=== PATIENT | female | born 1965 | race Caucasian/White ===

== ENCOUNTER 2020-01-31 10:09 | Outpatient (CLI) | payer OTHER, SELFPAY ==
--- NOTE | ~2020-01-31 | MM_ITS ---
EXAMINATION: MM screening [facility] BI w ivette HISTORY: Screening mammogram TECHNIQUE: Craniocaudal and mediolateral oblique 3-D tomosynthesis images were obtained and synthetic 2-D images were generated. CAD analysis was submitted and interpreted. COMPARISON: 11/02/2018, 02/20/2018, 08/02/2017, 07/27/2017 BREAST PARENCHYMAL COMPOSITION: There are scattered areas of fibroglandular density. FINDINGS: A stable mass is again noted in the anterior third of the lower left breast. There is no ev idence of suspicious mass, calcification, or architectural distortion to suggest malignancy in either breast. There has been no suspicious interval change. IMPRESSION: 1. No mammographic evidence of malignancy. 2. Recommend routine screening mammography in one year. BI-RADS Category 2: Benign finding(s). Reviewed, dictated and finalized at location A.
== END 2020-01-31 10:10 | disposition home or self-care (01) ==
LOC: ANHIMG 10:11
PROVIDERS: PCP Internal Medicine; Visit Provider Obstetrics & Gynecology
DX: Z12.31 Encounter for screening mammogram for malignant neoplasm of breast (principal)
CPT/HCPCS: 77063; 77067

== ENCOUNTER 2020-08-12 15:43 | Outpatient (CLI) | payer OTHER, SELFPAY ==
--- NOTE | ~2020-08-12 | MR_ITS ---
EXAMINATION: MR lumbar spine wo con DATE: 08/12/2020 16:53 INDICATION: Low back pain. Lumbar radiculopathy. TECHNIQUE: Magnetic resonance imaging (MRI) of the lumbar spine was performed without intravenous con trast. Sequences included sagittal T2-weighted FSE, sagittal T2-weighted FS FSE, sagittal T1-weighted FSE, and axial T2-weighted FSE. COMPARISON: None FINDINGS: There is 14 degrees levoscoliosis of lumbar spine. Vertebral body heights are normal. Inter vertebral disc heights are normal. There is endplate remodeling at L5-S1. The distal spinal cord sign al intensity is normal. The conus medullaris is at T12-L1. The following disc levels are specifically discussed: L1-L2: The disc is bulging and has an annular fissure. There is no facet joint osteoarthritis. There is mild right neural foraminal stenosis. There is no central canal stenosis. L2-L3: The disc does not extend beyond the endplate margin. There is mild bilateral facet joint osteo arthritis. There is no neural foraminal stenosis. There is no central canal stenosis. L3-L4: The disc is bulging. There is mild bilateral facet joint osteoarthritis. There is mild left ne ural foraminal stenosis. There is no central canal stenosis. L4-L5: The disc is bulging and has an annular fissure. There is moderate bilateral facet joint osteoa rthritis. There is mild left neural foraminal stenosis. There is no central canal stenosis. L5-S1: The disc is bulging and has an annular fissure. There is moderate right and severe left facet joint osteoarthritis. There is mild bilateral neural foraminal stenosis. There is no central canal st enosis. IMPRESSION: 1. Mild lumbar spondylosis. Reviewed, dictated and finalized at location A. IDE PLANT FIELD ENGINEER IMPRESSION: 1. Mild lumbar spondylosis.
--- NOTE | ~2020-08-12 | MR_ITS ---
EXAMINATION: MR cervical spine wo con DATE: 08/12/2020 16:36 INDICATION: Neck pain. TECHNIQUE: Magnetic resonance imaging (MRI) of the cervical spine was performed without intravenous c ontrast. Sequences included sagittal T2-weighted FSE, sagittal STIR FSE, sagittal T1-weighted FSE, ax ial MERGE, and axial T2-weighted FSE. COMPARISON: Cervical spine MRI 10/06/2017 FINDINGS: There is 6 degrees dextrocurvature of cervical spine. There is kyphosis of cervical spine. Vertebral body heights are normal. There is mildly decreased disc height at C3-C4 and C5-C6. Mild mot ion artifact obscures evaluation of the spinal cord for signal abnormality. The following disc levels are specifically discussed: C2-C3: The disc does not extend beyond the endplate margin. There is no uncovertebral joint osteoarth ritis. There is severe bilateral facet joint osteoarthritis. There is no neural foraminal stenosis. T here is no central canal stenosis. C3-C4: The disc is bulging. There is mild right and moderate left uncovertebral joint osteoarthritis. There is mild right and severe left facet joint osteoarthritis. There is moderate left neural forami nal stenosis. There is no central canal stenosis. C4-C5: The disc does not extend beyond the endplate margin. There is mild left uncovertebral joint os teoarthritis. There is mild right and severe left facet joint osteoarthritis. There is mild left neur al foraminal stenosis. There is no central canal stenosis. C5-C6: The disc is bulging. There is mild bilateral uncovertebral joint osteoarthritis. There is mild right and severe left facet joint osteoarthritis. There is no neural foraminal stenosis. There is no central canal stenosis. C6-C7: The disc does not extend beyond the endplate margin. There is no uncovertebral joint osteoarth ritis. There is no facet joint osteoarthritis. There is no neural foraminal stenosis. There is no phil tral canal stenosis. C7-T1: The disc does not extend beyond the endplate margin. There is no uncovertebral joint osteoarth ritis. There is mild left facet joint osteoarthritis. There is no neural foraminal stenosis. There is no central canal stenosis. IMPRESSION: 1. Mild cervical spondylosis, stable from 10/06/2017. Reviewed, dictated and finalized at location A. L MAIL CARRIER
== END 2020-08-12 15:44 | disposition home or self-care (01) ==
PROVIDERS: PCP Internal Medicine; Visit Provider Nurse Practitioner Family
DX: M47.892 Other spondylosis, cervical region (principal); M47.896 Other spondylosis, lumbar region
CPT/HCPCS: 72141; 72148

== ENCOUNTER 2020-08-26 09:00 | Outpatient (CLI) | payer OTHER, SELFPAY ==
--- NOTE | ~2020-08-26 | DEXA_ITS ---
Bone Density Report Name: Aniya Ann Age: 54 Sex: Female Ethnicity: White Date of : 1965 Indication: postmenopausal; Referring Provider: Patrick, Cami Gann Study: Bone densitometry was performed. Exam Date: August 26, 2020 Accession number: [id number] Bone Density: Region BMD T-score Z-score Classification AP Spine (L1-L4) 0.546 -4.6 -3.4 Osteoporosis Femoral Neck (Left) 0.569 -2.5 -1.4 Osteoporosis Total Hip (Left) 0.646 -2.4 -1.7 Osteopenia Total Hip Bilateral Avg 0.652 -2.4 -1.7 Osteopenia Femoral Neck (Right) 0.587 -2.4 -1.2 Osteopenia Total Hip (Right) 0.657 -2.3 -1.6 Osteopenia World Health Organization criteria for BMD impression classify patients as: Normal (T-score at or above -1.0), Osteopenia (T-score between -1.0 and -2.5), or Osteoporosis (T-score at or below -2.5). 10-year Fracture Risk: FRAX not reported because: Some T-score for Spine Total or Hip Total or Femoral Neck at or below -2.5 Clinical Information Provided by Patient: Has used the following medications: Vitamin D Patient maximum height was 56.6 Menopause Age: 44 Does not regularly consume dairy products Drinks caffeinated beverages Onset of menses at age 11 Number of children 3 Impression: The patient has osteoporosis, based on the Total Spine T-score. Discussion: HIGH RISK OF FRACTURE. BONE DENSITY IS UNDESIRABLY LOW AT ONE OR MORE SKELETAL SITES, CONSISTENT WITH OSTEOPOROSIS. ALSO, BONE DENSITY IS LOWER THAN EXPECTED FOR AGE AND SEX AT ONE OR MORE SKELETAL SITES; RECOMMEND A DILIGENT SEARCH FOR SECONDARY CAUSES OF BONE LOSS. This patient's lowest T-score meets the World Health Organization's (WHO) criteria for osteoporosis at one or more sites (T-score -2.5 or below). In untreated patients, the risk of osteoporotic fracture increases approximately two-fold for each 1.0 SD decrease in T-score. Low bone density is not the only risk factor for fracture; also consider factors such as patient's age, frailty or poor health, risk of falling, risk of injury, previous osteoporotic fracture, family history of osteoporosis, cigarette smoking, low body weight, etc. Not everyone with low bone mineral density has osteoporosis; osteomalacia and other metabolic bone disorders should also be considered. Patients who have osteoporosis should be evaluated for specific diseases and conditions (secondary causes) that may cause or contribute to bone loss. The [place] [employer] Endocrinologists (AACE) and National Osteoporosis Foundation (NOF) recommend pharmacologic intervention for all postmenopausal women whose T-score is in this range. Also, this patient's bone mineral density is below the range considered normal for healthy age-, sex-, and race-matched controls at least one site (Z-score -2.0 or below). This warrants careful evalu
== END 2020-08-26 09:01 | disposition home or self-care (01) ==
PROVIDERS: PCP Internal Medicine; Visit Provider Nurse Practitioner Obstetrics & Gynecology
DX: M85.89 Other specified disorders of bone density and structure, multiple sites (principal); M81.0 Age-related osteoporosis without current pathological fracture
CPT/HCPCS: 77080

== ENCOUNTER 2021-02-02 10:35 | Outpatient (CLI) | payer OTHER, SELFPAY ==
--- NOTE | ~2021-02-02 | MM_ITS ---
EXAMINATION: MM screening [facility] BI w ivette HISTORY: Screening TECHNIQUE: Craniocaudal and mediolateral oblique 3-D tomosynthesis images were obtained and synthetic 2-D images were generated. CAD analysis was submitted and interpreted. COMPARISON: Comparison to multiple prior studies sequentially, with oldest reviewed study dated 06/2016. BREAST PARENCHYMAL COMPOSITION: There are scattered areas of fibroglandular density. FINDINGS: There is no evidence of suspicious mass, calcification, or architectural distortion to sugg est malignancy in either breast. There has been no suspicious interval change. IMPRESSION: 1. No mammographic evidence of malignancy. 2. Recommend routine screening mammography in one year. BI-RADS Category 1: Negative Reviewed, dictated and finalized at location A.
== END 2021-02-02 10:36 | disposition home or self-care (01) ==
LOC: ANHIMG 10:36
PROVIDERS: PCP Internal Medicine; Visit Provider Nurse Practitioner Obstetrics & Gynecology
DX: Z12.31 Encounter for screening mammogram for malignant neoplasm of breast (principal)
CPT/HCPCS: 77063; 77067

== ENCOUNTER 2021-07-07 10:19 | Outpatient (CLI) | payer OTHER, SELFPAY ==
--- NOTE | 2021-07-07 11:00 | NEURO_ITS ---
Impression: # Complains of numbness of hands. # Mild evolving left Carpal Tunnel Syndrome. # Left ulnar neuropathy across the elbow. # Normal needle/EMG exam. Nerve Conduction Studies Anti Sensory Summary Table Stim Site NR Peak (ms) P-T Amp (?V) Site1 Site2 Delta-P (ms) Dist (cm) Timoteo (m/s) Left Median Anti Sensory (2-3nd Digit) Wrist 3.1 83.4 Wrist 2-3nd Digit 3.1 14.0 45 Wrist 3.1 77.7 Wrist 2-3nd Digit 3.1 14.0 45 Right Median Anti Sensory (2-3nd Digit) Wrist 3.2 86.0 Wrist 2-3nd Digit 3.2 14.0 44 Wrist 3.3 68.9 Wrist 2-3nd Digit 3.2 14.0 44 Left Radial Anti Sensory (Base 1st Digit) Wrist 2.3 46.3 Wrist Base 1st Digit 2.3 0.0 Right Radial Anti Sensory (Base 1st Digit) Wrist 2.3 42.9 Wrist Base 1st Digit 2.3 0.0 Left Ulnar Anti Sensory (5th Digit) Wrist 2.7 97.2 Wrist 5th Digit 2.7 14.0 52 Right Ulnar Anti Sensory (5th Digit) Wrist 2.5 77.1 Wrist 5th Digit 2.5 14.0 56 Motor Summary Table Stim Site NR Onset (ms) O-P Amp (mV) Site1 Site2 Delta-0 (ms) Dist (cm) Timoteo (m/s) Left Median Motor (Abd Poll Brev) Wrist 3.8 5.9 Elbow Wrist 5.4 29.0 54 Elbow 9.2 4.7 Right Median Motor (Abd Poll Brev) Wrist 3.4 5.1 Elbow Wrist 5.0 28.0 56 Elbow 8.4 5.6 Left Ulnar Motor (Abd Dig Minimi) Wrist 2.4 9.7 A Elbow Wrist 6.1 28.0 46 A Elbow 8.5 8.7 B Elbow Wrist 3.9 21.0 54 B Elbow 6.3 6.9 Right Ulnar Motor (Abd Dig Minimi) Wrist 2.6 6.6 A Elbow Wrist 5.1 29.0 57 A Elbow 7.7 5.6 F Wave Studies NR F-Lat (ms) L-R F-Lat (ms) Left Median (Mrkrs) (Abd Poll Brev) 29.53 1.13 Right Median (Mrkrs) (Abd Poll Brev) 30.66 1.13 Left Ulnar (Mrkrs) (Abd Dig Min) 30.55 1.01 Right Ulnar (Mrkrs) (Abd Dig Min) 29.54 1.01 EMG Side Muscle Nerve Root Ins Act Fibs Amp Dur Recrt Comment Right 1stDorInt Ulnar C8-T1 Nml Nml Nml Nml Nml Right Ext Indicis Radial (Post Int) C7-8 Nml Nml Nml Nml Nml Right Ext Digitorum Radial (Post Int) C7-8 Nml Nml Nml Nml Nml Right BrachioRad Radial C5-6 Nml Nml Nml Nml Nml Right PronatorTeres Median C6-7 Nml Nml Nml Nml Nml Right Abd Poll Brev Median C8-T1 Nml Nml Nml Nml Nml Left 1stDorInt Ulnar C8-T1 Nml Nml Nml Nml Nml Left Ext Indicis Radial (Post Int) C7-8 Nml Nml Nml Nml Nml Left Ext Digitorum Radial (Post Int) C7-8 Nml Nml Nml Nml Nml Left BrachioRad Radial C5-6 Nml Nml Nml Nml Nml Left PronatorTeres Median C6-7 Nml Nml Nml Nml Nml Left Abd Poll Brev Median C8-T1 Nml Nml Nml Nml Nml MTDD
== END 2021-07-07 10:20 | disposition home or self-care (01) ==
PROVIDERS: PCP Internal Medicine; Visit Provider Nurse Practitioner Family
DX: G56.02 Carpal tunnel syndrome, left upper limb (principal); G56.22 Lesion of ulnar nerve, left upper limb
CPT/HCPCS: 95886; 95911

== ENCOUNTER 2022-03-18 10:26 | Outpatient (CLI) | payer OTHER, SELFPAY ==
--- NOTE | ~2022-03-18 | MR_ITS ---
EXAMINATION: MR cervical spine wo con DATE: 03/18/2022 11:06 INDICATION: Chronic neck pain. TECHNIQUE: Magnetic resonance imaging (MRI) of the cervical spine was performed without intravenous c ontrast. Sequences included sagittal T2-weighted FSE, sagittal T2-weighted FS FSE, sagittal T1-weight ed FSE, axial MERGE, and axial T2-weighted FSE. COMPARISON: Cervical spine MRI 08/12/2020 FINDINGS: There is kyphosis of cervical spine. There is a least 20 degrees levoscoliosis of thoracic spine. There is 2 mm anterolisthesis of C3 on C4 and C4 on C5. There is mild chronic height loss of C 5 vertebral body. There is mildly decreased disc height at C3-C4 and C5-C6. The spinal cord signal in tensity is normal. The following disc levels are specifically discussed: C2-C3: There is a central protrusion. There is no uncovertebral joint osteoarthritis. There is severe bilateral facet joint osteoarthritis. There is no neural foraminal stenosis. There is no central can al stenosis. C3-C4: There is a central extrusion. There is moderate left uncovertebral joint osteoarthritis. There is mild right and severe left facet joint osteoarthritis. There is moderate left neural foraminal st enosis. There is no central canal stenosis. C4-C5: The disc does not extend beyond the endplate margin. There is no uncovertebral joint osteoarth ritis. There is moderate right and severe left facet joint osteoarthritis. There is mild left neural foraminal stenosis. There is no central canal stenosis. C5-C6: The disc is bulging. There is mild bilateral uncovertebral joint osteoarthritis. There is brandon re bilateral facet joint osteoarthritis. There is mild bilateral neural foraminal stenosis. There is mild central canal stenosis. C6-C7: There is a central extrusion. There is no uncovertebral joint osteoarthritis. There is no face t joint osteoarthritis. There is no neural foraminal stenosis. There is mild central canal stenosis. C7-T1: The disc does not extend beyond the endplate margin. There is no uncovertebral joint osteoarth ritis. There is mild left facet joint osteoarthritis. There is no neural foraminal stenosis. There is no central canal stenosis. IMPRESSION: 1. Mild cervical spondylosis, stable from 08/13/2020. Reviewed, dictated and finalized at location A.
== END 2022-03-18 10:27 | disposition home or self-care (01) ==
PROVIDERS: PCP Internal Medicine
DX: M54.42 Lumbago with sciatica, left side (principal); R29.2 Abnormal reflex; R27.0 Ataxia, unspecified; M47.892 Other spondylosis, cervical region
CPT/HCPCS: 72141

== ENCOUNTER 2022-05-03 12:34 | Outpatient (CLI) | payer OTHER, SELFPAY | END 2022-05-03 12:35 | disposition home or self-care (01) | PROVIDERS: PCP Internal Medicine; Visit Provider Nurse Practitioner | DX: H93.19 Tinnitus, unspecified ear (principal); H90.3 Sensorineural hearing loss, bilateral | CPT/HCPCS: 92557; 92567 ==

== ENCOUNTER 2022-05-18 14:19 | Outpatient (CLI) | payer OTHER, SELFPAY ==
--- NOTE | ~2022-05-18 | MM_ITS ---
EXAMINATION: MM screening [facility] BI w ivette HISTORY: Screening TECHNIQUE: Craniocaudal and mediolateral oblique 3-D tomosynthesis images were obtained and synthetic 2-D images were generated. CAD analysis was submitted and interpreted. COMPARISON: Comparison to multiple prior studies sequentially, with oldest reviewed study dated 07/27. BREAST PARENCHYMAL COMPOSITION: There are scattered areas of fibroglandular density. FINDINGS: There is no evidence of suspicious mass, calcification, or architectural distortion to sugg est malignancy in either breast. There has been no suspicious interval change. IMPRESSION: 1. No mammographic evidence of malignancy. 2. Recommend routine screening mammography in one year. BI-RADS Category 1: Negative Reviewed, dictated and finalized at location B. GE PLANT OPERATOR
== END 2022-05-18 14:20 | disposition home or self-care (01) ==
PROVIDERS: PCP Internal Medicine; Visit Provider Nurse Practitioner Obstetrics & Gynecology
DX: Z12.31 Encounter for screening mammogram for malignant neoplasm of breast (principal)
CPT/HCPCS: 77063; 77067

== ENCOUNTER 2022-10-08 10:51 | Outpatient (CLI) | payer OTHER, SELFPAY ==
--- NOTE | ~2022-10-08 | XR_ITS ---
Thoracic spine: Clinical Indication: Fracture, osteoporosis AP and lateral views were performed. No fracture is seen. There is 25 degree dextroscoliosis of the thoracic spine. The intervertebral dis c spaces appear normal. Paravertebral soft tissues appear normal. Impression: 25 degree dextroscoliosis of the thoracic spine. No fracture or subluxation evident otherwise. Reviewed, dictated and finalized at location . Impression: 25 degree dextroscoliosis of the thoracic spine. No fracture or subluxation evident otherwise.
== END 2022-10-08 10:52 | disposition home or self-care (01) ==
PROVIDERS: PCP Internal Medicine
DX: M81.0 Age-related osteoporosis without current pathological fracture (principal)
CPT/HCPCS: 72070

== ENCOUNTER 2023-04-28 12:18 | Emergency (ER) | payer OTHER, SELFPAY ==
--- NOTE | ~2023-04-28 | XR_ITS ---
EXAMINATION: XR forearm RT 2V INDICATION: Right wrist pain, initial encounter TECHNIQUE: Two views of the right forearm are obtained. COMPARISON: None available FINDINGS: There is an acute, traumatic, comminuted intra-articular fracture of the distal radius. The re are 45 degrees of dorsal tilt of the distal fracture fragment. There is a minimally displaced obli que fracture through the ulnar styloid. No definite additional fracture is identified on this two vie w examination. There is diffuse soft tissue swelling of the wrist. Alignment the elbow is normal. IMPRESSION: 1. Comminuted intra-articular fracture of the distal radius with dorsal angulation. 2. Minimally displaced oblique fracture of the ulnar styloid. Reviewed, dictated and finalized at location F. FEEDER IMPRESSION: 1. Comminuted intra-articular fracture of the distal radius with dorsal angulat ion. 2. Minimally displaced oblique fracture of the ulnar styloid.
--- NOTE | ~2023-04-28 | XR_ITS ---
XR wrist RT 2V DATE: 04/28/2023 15:20 INDICATION: Postoperative reduction examination TECHNIQUE: AP and crosstable lateral views of right wrist COMPARISON: 04/28/2023 prereduction examination FINDINGS: There is a splint of the forearm and wrist extending into the distal metacarpal area. Again noted is comminuted intra-articular fracture of the distal radius with minimal displacement, wi th prominent dorsal inclination of the distal radial articular surface. IMPRESSION: Persistent prominent dorsal inclination of distal radial articular surface at comminuted intra-articular fracture of distal radius Reviewed, dictated and finalized at location A. GRAPHICAL ENGINEER
--- NOTE | ~2023-04-28 | XR_ITS ---
EXAMINATION: XR wrist RT 2V INDICATION: Right wrist pain, initial encounter TECHNIQUE: Two views of the right wrist are obtained. COMPARISON: None available FINDINGS: There is an acute, traumatic, comminuted intra-articular fracture of the distal radius. The re are 45 degrees of dorsal tilt of the distal fracture fragment. There is a minimally displaced obli que fracture through the ulnar styloid. No definite additional fracture is identified on this two vie w examination. There is diffuse soft tissue swelling of the wrist. IMPRESSION: 1. Comminuted intra-articular fracture of the distal radius with dorsal tilt. 2. Oblique fracture of the ulnar styloid. Reviewed, dictated and finalized at location F. RIMENTAL MECHANIC SPACECRAFT
[2023-04-28 12:18] VITALS: BP 151/79; PULSE 81; RESP 20; TEMP 37.1; O2SAT 100
--- NOTE | 2023-04-28 12:20 | ED.UPPEXIN ---
HPI - Extremity Injury (Upper) General Chief Complaint: Extremity Injury, Upper <Jennifer Ignacio APRN - Last Filed: 04/28/23 16:51> Stated Complaint: right wrist injury <Jennifer Ignacio APRN - Last Filed: 04/28/23 16:51> Time Seen by Provider: 04/28/23 12:20 <Jennifer Ignacio APRN - Last Filed: 04/28/23 16:51> Source: patient and family <Jennifer Ignacio APRN - Last Filed: 04/28/23 16:51> Mode of arrival: ambulatory <Jennifer Ignacio APRN - Last Filed: 04/28/23 16:51> Limitations: no limitations <Jennifer Ignacio APRN - Last Filed: 04/28/23 16:51> History of Present Illness HPI narrative: Patient is a very pleasant 57 year female past medical history as noted below presents emergency department today ambulatory with a steady gait with her spouse for evaluation of pain and deformity to the right wrist. Patient was changes on bilateral on a candle on her mental when she fell down landing on the extremity. She did not strike her head. there is tingling/numbness sensation to her fingers but she states she can feel them. <Jennifer Ignacio APRN - Last Filed: 04/28/23 16:51> Related Data Home Medications: Home Medications Medication Instructions Recorded Confirmed valacyclovir 1 gram tablet 1,000 mg PO .prn 02/04/20 04/14/22 (Valtrex) cholecalciferol (vitamin D3) 25 25 mcg PO DAILY 06/19/20 04/14/22 mcg (1,000 unit) capsule cannabidiol 100 mg/mL oral solution PO 03/10/21 04/14/22 galcanezumab-gnlm 120 mg/mL 120 mg subcut MONTHLY 04/14/22 04/14/22 subcutaneous pen injector (Emgality Pen) <Jennifer Ignacio APRN - Last Filed: 04/28/23 16:51> Allergies/Adverse Reactions: Allergies Allergy/AdvReac Type Severity Reaction Status Date / Time No Known Allergies Allergy Verified 04/14/22 12:54 <Jennifer Ignacio APRN - Last Filed: 04/28/23 16:51> Review of Systems Review of Systems: CONSTITUTIONAL: Denies fever, chills, or sweats. SKIN: Denies rash or itching. MUSCULOSKELETAL: +right wrist/lower arm pain/swelling/deformity. NEUROLOGIC: +numbness/tingling sensation to fingers of right hand PSYCHIATRIC: Denies anxiety or depression. <Jennifer Ignacio APRN - Last Filed: 04/28/23 16:51> All systems reviewed & are unremarkable except as noted in HPI and below <Jennifer Ignacio APRN - Last Filed: 04/28/23 16:51> PMFSH Past Medical History Medical History: Medical History Acquired hypothyroidism High blood cholesterol Hyperlipemia, idiopathic familial Hyperlipidemia Pain of both heels Screening for metabolic disorder <Jennifer Ignacio APRN - Last Filed: 04/28/23 16:51> Family History Family History: Family History Sibling Patient's brother is in good health Mother Multiple sclerosis Rheumatoid arthritis Diabetes mellitus Other Family history of coronary artery disease Family history of lung cancer Family history of lupus erythematosus Family history of rheumatoid arthritis <Jennifer Ignacio APRN - Last Filed: 04/28/23 16:51> Social History Social History: Social History Social History: caffeine-1 soda daily Smoking status: Never smoker Alcohol intake: never <Jennifer Ignacio APRN - Last Filed: 04/28/23 16:51> Exam Narrative: GENERAL: Well-appearing, well-nourished. patient tearful, in obvious pain. non-toxic however. HEAD: Normocephalic, atraumatic. EYES: PERRLA ENT: Mucous membranes moist. NECK: Supple. CHEST: No respiratory distress. HEART: Regular rate. 2+ right radial pulse. EXTREMITIES: there is obvious deformity to the right distal wrist with swelling/tenderness. able to wiggle fingers. cap refill <2 seconds of right hand. no right sided elbow deformity or shoulder. SKIN: Warm, dry, no rash. color appropriate to right hand and warm. NEURO:
[2023-04-28] MEDS: fentaNYL CITRATE INJ (*CRX) 100 MCG/2 ML VIAL IV PUSH (13:00)
[2023-04-28 14:17] VITALS: PULSE 70; RESP 18; O2SAT 100
[2023-04-28] MEDS: oxyCODONE HCL (*CRX) 5 MG TAB IR PO (14:29)
[2023-04-28] MEDS: LIDOCAINE HCL 1% LOCAL INJ 10 ML VIAL INFILTRATE (14:36)
[2023-04-28 14:37] VITALS: BP 132/82; PULSE 70; RESP 18; O2SAT 96
[2023-04-28 16:16] VITALS: BP 131/79; PULSE 70; RESP 17; O2SAT 98
== END 2023-04-28 16:20 | disposition home or self-care (01) ==
PROVIDERS: Emergency Provider Nurse Practitioner; PCP Nurse Practitioner Family
DX: S52.571A Other intraarticular fracture of lower end of right radius, initial encounter for closed fracture (principal); S52.611A Displaced fracture of right ulna styloid process, initial encounter for closed fracture; E03.9 Hypothyroidism, unspecified; E78.00 Pure hypercholesterolemia, unspecified; W07.XXXA Fall from chair, initial encounter
CPT/HCPCS: 25605; 73090; 73100; 96374; 99285; A4565; A9270; J3010

== ENCOUNTER 2024-02-27 09:50 | Outpatient (CLI) | payer OTHER, SELFPAY ==
--- NOTE | ~2024-02-27 | MM_ITS ---
EXAMINATION: MM screening [facility] BI w ivette HISTORY: Screening TECHNIQUE: Craniocaudal and mediolateral oblique 3-D tomosynthesis images were obtained and synthetic 2-D images were generated. CAD analysis was submitted and interpreted. COMPARISON: Comparison to multiple prior studies sequentially, with oldest reviewed study dated 08/02. BREAST PARENCHYMAL COMPOSITION: Not dense: There are scattered areas of fibroglandular density. FINDINGS: There is no evidence of suspicious mass, calcification, or architectural distortion to sugg est malignancy in either breast. There has been no suspicious interval change. IMPRESSION: 1. No mammographic evidence of malignancy. 2. Recommend routine screening mammography in one year. BI-RADS Category 1: Negative Reviewed, dictated and finalized at location B.
== END 2024-02-27 09:51 | disposition home or self-care (01) ==
LOC: ANHIMG 09:52
PROVIDERS: PCP Internal Medicine; Visit Provider Nurse Practitioner Obstetrics & Gynecology
DX: Z12.31 Encounter for screening mammogram for malignant neoplasm of breast (principal)
CPT/HCPCS: 77063; 77067

== ENCOUNTER 2024-04-03 12:16 | Outpatient (CLI) | payer OTHER, SELFPAY ==
--- NOTE | 2024-04-03 14:30 | NEURO_ITS ---
Impression: # Complains of numbness of hands. # Bilateral ulnar neuropathy, right more than left. # No Carpal Tunnel Syndrome. # Normal needle/EMG exam. Nerve Conduction Studies Anti Sensory Summary Table Stim Site NR Peak (ms) P-T Amp (?V) Site1 Site2 Delta-P (ms) Dist (cm) Timoteo (m/s) Left Median Anti Sensory (2-3nd Digit) Wrist 3.2 46.5 Wrist 2-3nd Digit 3.2 14.0 44 Wrist 3.5 40.6 Wrist 2-3nd Digit 3.2 14.0 44 Right Median Anti Sensory (2-3nd Digit) Wrist 3.0 62.7 Wrist 2-3nd Digit 3.0 14.0 47 Wrist 3.0 68.5 Wrist 2-3nd Digit 3.0 14.0 47 Left Radial Anti Sensory (Base 1st Digit) Wrist 1.8 17.7 Wrist Base 1st Digit 1.8 0.0 Right Radial Anti Sensory (Base 1st Digit) Wrist 2.4 31.5 Wrist Base 1st Digit 2.4 0.0 Left Ulnar Anti Sensory (5th Digit) Wrist 2.4 85.0 Wrist 5th Digit 2.4 14.0 58 Right Ulnar Anti Sensory (5th Digit) Wrist 2.4 67.1 Wrist 5th Digit 2.4 14.0 58 Motor Summary Table Stim Site NR Onset (ms) O-P Amp (mV) Site1 Site2 Delta-0 (ms) Dist (cm) Timoteo (m/s) Left Median Motor (Abd Poll Brev) Wrist 3.6 4.8 Elbow Wrist 4.8 28.0 58 Elbow 8.4 2.6 Right Median Motor (Abd Poll Brev) Wrist 3.4 3.6 Elbow Wrist 5.0 29.0 58 Elbow 8.4 6.9 Left Ulnar Motor (Abd Dig Minimi) Wrist 2.7 6.0 A Elbow Wrist 5.5 29.0 53 A Elbow 8.2 4.9 B Elbow Wrist 3.6 19.0 53 B Elbow 6.3 5.0 Right Ulnar Motor (Abd Dig Minimi) Wrist 2.3 7.9 A Elbow Wrist 5.7 29.0 51 A Elbow 8.0 6.7 B Elbow Wrist 4.1 19.0 46 B Elbow 6.4 5.5 F Wave Studies NR F-Lat (ms) L-R F-Lat (ms) Left Median (Mrkrs) (Abd Poll Brev) 29.69 0.20 Right Median (Mrkrs) (Abd Poll Brev) 29.89 0.20 Left Ulnar (Mrkrs) (Abd Dig Min) 30.18 0.36 Right Ulnar (Mrkrs) (Abd Dig Min) 29.81 0.36 EMG Side Muscle Nerve Root Ins Act Fibs Amp Dur Recrt Comment Right 1stDorInt Ulnar C8-T1 Nml Nml Nml Nml Nml Right Ext Indicis Radial (Post Int) C7-8 Nml Nml Nml Nml Nml Right Ext Digitorum Radial (Post Int) C7-8 Nml Nml Nml Nml Nml Right BrachioRad Radial C5-6 Nml Nml Nml Nml Nml Right PronatorTeres Median C6-7 Nml Nml Nml Nml Nml Right Abd Poll Brev Median C8-T1 Nml Nml Nml Nml Nml Right ABD Dig Min Ulnar C8-T1 Nml Nml Nml Nml Nml Left 1stDorInt Ulnar C8-T1 Nml Nml Nml Nml Nml Left Ext Indicis Radial (Post Int) C7-8 Nml Nml Nml Nml Nml Left Ext Digitorum Radial (Post Int) C7-8 Nml Nml Nml Nml Nml Left BrachioRad Radial C5-6 Nml Nml Nml Nml Nml Left PronatorTeres Median C6-7 Nml Nml Nml Nml Nml Left Abd Poll Brev Median C8-T1 Nml Nml Nml Nml Nml Left ABD Dig Min Ulnar C8-T1 Nml Nml Nml Nml Nml Right Biceps Musculocut C5-6 Nml Nml Nml Nml Nml Right Triceps Radial C6-7-8 Nml Nml Nml Nml Nml Right Deltoid Axillary C5-6 Nml Nml Nml Nml Nml Left Biceps Musculocut C5-6 Nml Nml Nml Nml Nml Left Triceps Radial C6-7-8 Nml Nml Nml Nml Nml Left Deltoid Axillary C5-6 Nml Nml Nml Nml Nml MTDD
== END 2024-04-03 12:17 | disposition home or self-care (01) ==
LOC: ANHNEURO 12:23
PROVIDERS: PCP Internal Medicine; Visit Provider Nurse Practitioner Adult Health
DX: G56.23 Lesion of ulnar nerve, bilateral upper limbs (principal); G56.00 Carpal tunnel syndrome, unspecified upper limb
CPT/HCPCS: 95886; 95911

== ENCOUNTER 2024-10-08 10:11 | Outpatient (CLI) | payer OTHER, SELFPAY ==
--- NOTE | ~2024-10-08 | US_ITS ---
Limited Abdominal Sonogram: Real-time sonographic imaging of the right upper quadrant was performed. Clinical History: Right upper quadrant pain Findings: The liver appears normal with no evidence of bile duct dilatation. 2.3 cm hepatic cyst pre sent. Questionable vague minimally hyperechoic 3.3 cm hepatic mass. There is an additional 1.8 cm hyp erechoic hepatic mass also present. Main portal vein demonstrates normal direction of flow. The gallb ladder is well distended, and appears normal with no evidence of gallstone or wall thickening. The co mmon bile duct measures 3 mm. The visualized pancreas, aorta, and IVC are unremarkable. 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 Impression: Probable hyperechoic hepatic masses measuring 3.3 cm and 1.8 cm in size. These are likely hemangiomas , but confirmation with MR is advised. 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 Thi s could also be further assessed MR imaging. Reviewed, dictated and finalized at location . Impression: Probable hyperechoic hepatic masses measuring 3.3 cm and 1.8 cm in size. These are likely hemangiomas, but confirmation with MR is advised. 5.3 cm echogenic mass arising from the upper pole the right kidney is most like ly angiomyolipoma. This could also be further assessed MR imaging.
== END 2024-10-08 10:12 | disposition home or self-care (01) ==
LOC: GOSHIMG 10:11
PROVIDERS: PCP Nurse Practitioner; Visit Provider Nurse Practitioner
DX: R16.0 Hepatomegaly, not elsewhere classified (principal); N28.89 Other specified disorders of kidney and ureter
CPT/HCPCS: 76705

== ENCOUNTER 2024-10-19 09:56 | Outpatient (CLI) | payer OTHER, SELFPAY ==
--- NOTE | ~2024-10-19 | MMUS_ITS ---
EXAMINATION: MM diagnostic adalid LT w ivette, US breast LT limited HISTORY: Palpable left breast abnormality. Patient states left upper outer quadrant of the breast fee ls firmer in the last month in the area of previous benign biopsy. TECHNIQUE: Additional 3-D tomosynthesis images of the left breast were performed and synthetic 2-D im ages were generated. CAD analysis was submitted and interpreted. High resolution Limited left breast ultrasound was performed. COMPARISON: Comparison to multiple prior studies sequentially, with oldest reviewed study dated 02/20. BREAST PARENCHYMAL COMPOSITION: Not dense: There are scattered areas of fibroglandular density. FINDINGS: MAMMOGRAPHIC FINDINGS: There is a tissue marker in the upper outer quadrants of the left breast, middle third. There are no new masses, calcifications or architectural distortion in the left breast to suggest malignancy. ULTRASOUND: Limited left breast ultrasound: At 2:00, 1 cm from the nipple there is an oval hypoechoic structure w ith heterogeneous internal echoes and internal cystic changes measuring 7 x 6 x 4 mm, likely a cluste r of microcysts. No internal vascularity or posterior features. At 3:00, 3 cm from the nipple there i s a benign intramammary lymph node measuring 6 mm. IMPRESSION: 1. Probable benign cluster microcysts in the left breast at 2:00, 1 cm from the nipple. 2. Recommend 6 month follow-up Limited left breast ultrasound BI-RADS CATEGORY 3-PROBABLY BENIGN FINDING Reviewed, dictated and finalized at location A. IMPRESSION: 1. Probable benign cluster microcysts in the left breast at 2:00, 1 cm from the nipple. 2. Recommend 6 month follow-up Limited left breast ultrasound BI-RADS CATEGORY 3-PROBABLY BENIGN FINDING
--- OUTSIDE RECORDS SUMMARY | 2024-10-19 10:08 | XMS_ITS | Referral Summary ---
Author Organization [facility] Address [address] [place] [address] Care Team Providers Care Professor Of German Name Role Phone Tristian Reed DO Primary Care Provider [phone]- [phone] Encounters Date Type Department Care Team Description 10/12/2024 Telephone [facility] Scheduling [address] [place] [address] Everton De Santiago MD 08/28/2024 12:28 PM CDT - 08/29/2024 11:25 AM CDT Hospital Encounter [address] [address] Luma Jimenez MD Aluko, Sheun, MD Kavali, Pavan Kumar, MD Angiomyolipoma Discharge Disposition: Discharge to home or self care 08/28/2024 Telephone Radiology [address] [place] [address] Sharon Santos PA 08/28/2024 9:00 AM CDT Office Visit [facility] [address] [facility] 1st [place] [address] Angiomyolipoma 08/24/2024 2:20 PM CDT Procedure visit [facility] Neurological Testing [address] [facility] 6th [address] [place] [address] Cervical stenosis of spine; Paresthesia of hand, bilateral; Weakness of both lower extremities; Paresthesia of skin; Falls 08/23/2024 Telephone [facility] Radiology [address] [place] [id number] Wayne Nye, NAGI 08/09/2024 Orders Only [facility] General Neurology [address] [facility] 6th [address] [place] [id number] Sherry Cruz Intractable chronic migraine without aura and without status migrainosus (Primary Dx) 08/08/2024 Orders Only [facility] Radiology [address] [place] [address] Sarahi Daley RN Angiomyolipoma (Primary Dx) 08/07/2024 Telephone [facility] Radiology [address] [place] [address] Sarahi Daley RN 08/06/2024 2:30 PM PROCUREMENT MANAGER Office Visit [facility] Radiology, Interventional Radiology [address] [facility] [address] [place] [address] Weston Barnes MD Angiomyolipoma 08/02/2024 1:00 PM PROCUREMENT MANAGER Procedure visit [facility] General Neurology [address] [facility] 6th [address] [place] [phone] Cheng Stanley MD Chronic migraine without aura without status migrainosus, not intractable (Primary Dx) 07/25/2024 Telephone [facility] Radiology [address] [place] [address] Sarahi Daley RN from Last 3 Months Allergies No known active allergies Medications atorvastatin (LIPITOR) 20 mg tablet 022 Active diphenoxylate-at ropine (LOMOTIL) 2.5-0.025 mg per tablet diphenoxylate-at ropine 2.5 mg-0.025 mg tablet Active levothyroxine (SYNTHROID) 25 mcg tablet levothyroxine 25 mcg tablet TAKE 1 TABLET BY MOUTH EVERY DAY Active valACYclovir (VALTREX) 1 gram tablet valacyclovir 1 gram tablet take 1 tablet by oral route every 12 hours x 5 days with flare up. PRN Active cholecalciferol (VITAMIN D-3) 25 mcg (1,000 unit) tablet Take 1 tablet (1,000 Units total) by mouth 2 (two) times a week Active omeprazole (PriLOSEC) 40 mg capsule 023 Active Botox 200 unit recon soln 023 Active pen needle, diabetic (Pen Needle) 31 gauge x 10/19 needle Use as directed once a day 100 each 1 023 Active cyclobenzaprine (FLEXERIL) 10 mg tablet Take 1 tablet (10 mg total) by mouth 3 (three) times a day as needed for muscle spasms Active DULoxetine DR (CYMBALTA) 30 mg capsule 025 Active pregabalin (LYRICA) 25 mg capsule 1 TABLETS ORALLY ONCE A DAY X 7 DAYS THEN EVERY OTHER DAY X 7 DAYS THEN STOP 024 Active tretinoin (RETIN-A) 0.05 % cream APPLY A PEA SIZED DROP TO AFFECTED AREAS OF SKIN EVERY NIGHT Active senna (SENOKOT) 8.6 mg tablet Take 1 tablet by mouth daily as needed for constipation 10 tablet 025 Active ondansetron ODT (ZOFRAN-ODT) 4 mg disintegrating tablet Take 1 tablet (4 mg total) by mouth every 8 (eight) hours as needed for nausea or vomiting 20 tablet 025 Active oxyCODONE (ROXICODONE) 5 mg immediate release tabletIndication s:Pain Take 1 tablet (5 mg total) by mouth every 6 (six) hours as needed for pain 10 tablet 025 Active abaloparatide (Tymlos) 80 mcg (3,120 mcg/1.56 mL) pen injectorIndicati ons:Age-related osteoporosis without current pathological fracture 0.04 mL (80 mcg total) by abdominal subcutaneous route daily 1.2 mL 1 025 2024 Active Tymlos 80 mcg (3,120 mcg/1.56 mL) pen injector INJECT 80MCG SUBCUTANEOUSLY INTO ABDOMEN ONCE DAILY (DISCARD 30 DAYS AFTER 1ST USE) 1.56 mL 2 025 2024 Discontinued Tymlos 80 mcg (3,120 mcg/1.56 mL) pen injector INJECT 80MCG SUBCUTANEOUSLY INTO ABDOMEN ONCE DAILY (DISCARD 30 DAYS AFTER 1ST USE) 1.56 mL 2 025 2024 Discontinued(R eorder) Hospital, Clinic, or Other Facility Administered Medication Ordered Dose Route Frequency Start Date End Date Status onabotulinumtoxin A (BOTOX) 200 unit injection 200 UnitsIndications:Intr actable chronic migraine without aura and without status migrainosus 200 Units OTHER Once for Clinic-Administere d Medication 02/09/2024 Active onabotulinumtoxin A (BOTOX) 200 unit injection 200 UnitsIndications:Intr actable chronic migraine without aura and without status migrainosus 200 Units OTHER Once for Clinic-Administere d Medication 10/25/2024 Active Active Problems Problem Noted Date Diagnosed Date Angiomyolipoma 08/28/2024 Assessment & Plan (08/29/2024 10:46 AM CDT): 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 She is now s/p embolization and doing well - no complications noted overnight, stable labs - pain management with oxy 5mg prn Hypothyroidism, unspecified 08/28/2024 Assessment & Plan (08/28/2024 12:59 PM CDT): - continue home 25mcg daily Closed fracture of right distal radius 3 Chronic migraine without aur a without status migrainosus, not intractable 08/12/2022 Assessment & Plan (08/28/2024 12:59 PM CDT): - uses botox injections in outpatient setting Chronic neck pain 08/12/2022 Osteoporosis 12/06/2021 Assessment & Plan (08/28/2024 12:59 PM CDT): - hold outpatient injections Reduced libido 07/25/2019 Overview (05/02/2023): Decreased libido;Recorded Elsewhere: No Location: [facility] Source: EHR Chronic: N Practice ID: [id number] Billable Time: 09:45:00 AM Superficial dyspareunia 07/25/2019 Overview (05/02/2023): Superficial (introital) dyspareunia;Practice ID: [id number] Leukocytosis 07/25/2019 Overview (05/02/2023): Elevated white blood cell count, unspecified;Practice ID: [id number] Social History Tobacco Use Types Packs/Day Years Used Date Smoking Tobacco: Never Smokeless Tobacco: Never Tobacco Cessation:Counseling Given: Not Answered AUDIT-C Answer Date Recorded Q1: How often do you have a drink containing alc ohol? Never 01/12/2024 Average Number of Drinks Not on file 024 Frequency of Binge Drinking Not on file 01/2024 Personal Safety Answer Date Recorded Have you ever been in or are you currently in a harmful physical or emotional relationship or is someone making you feel afraid or unsafe? Denies 08/28/2024 Comments No Sex and Gender Information Value Date Recorded Sex Assigned at Not on file Legal Sex Female 3:52 AM PROCUREMENT MANAGER Gender Identity Female 05/24/2022 8:12 PM PROCUREMENT MANAGER Sexual Orientation Straight 05/24/2022 8: 12 PM PROCUREMENT MANAGER Last Filed Vital Signs Vital Sign Reading Time Taken Comments Blood Pressure 135/69 08/29/2024 8:05 AM CDT Pulse 78 08/29/2024 8:05 AM CDT Temperature 36.8 C (98.2 F) 08/29/2024 8:05 AM CDT Respiratory Rate 18 08/29/2024 8:05 AM CDT Oxygen Saturation 99% 08/29/2024 8:05 AM CDT Inhaled Oxygen Concentration - - Weight 69 kg (152 lb 1.9 oz) 08/28/2024 12:30 PM CDT Height 165.1 cm (5' 5 ) 08/28/2024 12:30 PM CDT Body Mass Index 25.31 08/28/2024 12:30 PM CDT Plan of Treatment Not on file Medical Devices Implanted Type Area Environmental Services Floor Tech Device Identifier Shelf Expiration Date Model / Serial / Lot [employer]/Or tho Plate Std 48mm 3 Hole Evos Bone Radial Right Distal Volar [id number] - [id number] Implanted:Qty: 1 on 05/03/2023 by Cheng Ferrera MD at [facility] Right: Radius [employer]Or [employer] [id number] / / [employer]Or [employer] Evos Mini 2mm 3.3mm 10mm Lock Flower Stripper Long Bone Small Bone T6 [id number] - [id number] Implanted:Qty: 1 on 05/03/2023 by Cheng Ferrera MD at [facility] Right: Radius [employer]Or tho [id number] / / [employer]Or tho Evos Mini 37b1-39.3x1.2mm 71mm 3 Hole Head 5 Hole Shaft Variable [id number] - [id number] Implanted:Qty: 1 on 05/03/2023 by Cheng Ferrera MD at [facility] Right: Radius [employer]Or [employer] [id number] / / [employer]Or [employer] Evos Mini 2mm 3.3mm 20mm Lock Long Bone Small Bone T6 Screw Bone [id number] - [id number] Implanted:Qty: 1 on 05/03/2023 by Cheng Ferrera MD at [facility] Right: Radius [employer]Or tho [id number] / / [employer]Or [employer] Evos Mini 2.4mm 3.8mm 12mm Self Tap Flower Stripper Long Bone Small Bone [id number] - [id number] Implanted:Qty: 2 on 05/03/2023 by Cheng Ferrera MD at [facility] Right: Radius [employer]Or tho [id number] / / [employer]Or tho 2.4mm 3.8mm 10mm Self Retaining Screwdriver Self Tap Flat Head [id number] - [id number] Implanted:Qty: 1 on 05/03/2023 by Cheng Ferrera MD at [facility] Right: Radius [employer]Or [employer] [id number] / / [employer]Or [employer] Evos Mini 2.4mm 3.8mm 14mm Lock Long Bone Small Bone T7 Screw [id number] - [id number] Implanted:Qty: 2 on 05/03/2023 by Cheng Ferrera MD at [facility] Right: Radius [employer]Or tho [id number] / / [employer]Or tho Evos Mini 2.4mm 3.8mm 17mm Lock Long Bone Small Bone T7 Screw [id number] - [id number] Implanted:Qty: 1 on 05/03/2023 by Cheng Ferrera MD at [facility] Right: Radius [employer]/Or tho [id number] / / [employer]Or tho Evos Mini 2.4mm 3.8mm 18mm Lock Flower Stripper Long Bone Small Bone T7 [id number] - [id number] Implanted:Qty: 1 on 05/03/2023 by Cheng Ferrera MD at [facility] Right: Radius [employer]/Or tho [id number] / / [employer]/Or tho 2mm 3mm 22mm Self Retaining Screwdriver Self Tap Flat Head Cortex [id number] - [id number] Implanted:Qty: 1 on 05/03/2023 by Cheng Ferrera MD at [facility] Right: Radius [employer]/Or tho [id number] / / [employer]/Or tho 2mm 3mm 14mm Self Retaining Screwdriver Self Tap Flat Head Cortex [id number] - [id number] Implanted:Qty: 1 on 05/03/2023 by Cheng Ferrera MD at [facility] Right: Radius [employer]/Or tho [id number] / / [employer]/Or tho Evos Mini 2mm 3.3mm 13mm Lock Long Bone Small Bone T6 Screw Bone [id number] - [id number] Implanted:Qty: 1 on 05/03/2023 by Cheng Ferrera MD at [facility] Right: [facility] [employer]Rich[employer]/Or tho [id number] / / [employer] Embosphere Prefill Saline Syringe Compressible Nonaggregate S420gh - [id number] Implanted:Qty: 1 on 08/28/2024 at [facility] [employer] 04/07/2027 [id number] / / [id number] [employer] Coil Emolization Coated Detachable Marlow Tungsten Embold 1ull3ts [id number] - [id number] Implanted:Qty: 1 on 08/28/2024 at [facility] [employer] 10/26/2026 [id number] / / [id number] [employer] Angio-Seal Vip 6fr Closere Device [id number] - [id number] Implanted:Qty: 1 on 08/28/2024 at [facility] [employer] 03/30/2025 [id number] / / [id number] Explanted Type Area Environmental Services Floor Tech Device Identifier Shelf Expiration Date Model / Serial / Lot [employer] Olga .062in 4in [place] Both [employer]ds Orthopedic Wire 1600-462ns - [id number] Explanted:Qty: 1 on 05/03/2023 at [facility] Right: [facility] [employer] [id number] / / [employer] Olga .045in 4in 2 [place] End No Thread Standard Wire [id number] - [id number] Explanted:Qty: 2 on 05/03/2023 at [facility] Right: Radius [employer] [id number] / / Procedures Procedure Name Priority Date/Time Associated Diagnosis Comments EGFR STAT 08/29/2024 7:02 AM CDT DIFFERENTIAL AUTO Routine 08/29/2024 7:0 2 AM CDT BASIC METABOLIC PANEL STAT 08/29/2024 7:02 AM CDT CBC WITH AUTO DIFFERENTIAL Routine 08/29/2024 7:02 AM CDT EMBOLIZATION ORGAN ISCHEMIA OR INFARCTION Schedule Routine, Read Routine (OP Routine) 08/28/2024 12:10 PM CDT Angiomyolipoma EGFR Routine 08/28/2024 7:58 AM CDT Angiomyolipoma DIFFERENTIAL AUTO Routine 08/28/2024 7:5 8 AM CDT Angiomyolipoma CBC WITH AUTO DIFFERENTIAL Routine 08/28/2024 7:58 AM CDT Angiomyolipoma COMPREHENSIVE METABOLIC PANEL Routine 08/28/2024 7:58 AM CDT Angiomyolipoma EMG/NCV Routine 08/24/2024 2:42 PM CDT Cervical stenosis of spine Paresthesia of hand, bilateral from Last 3 Months Results * eGFR (08/29/2024 7:02 AM CDT) eGFR 69 >=60 mL/min/1. 73 m2 Comment: Interpretive Data Reference Interval Normal >/= 90 mL/min/1.73m2 Mildly decreased* 60 - 89 mL/min/1.73m2 Mildly to moderately decreased 45 - 59 mL/min/1.73m2 Moderately to severely decreased 30 - 44 mL/min/1.73m2 Severely decreased 15 - 29 mL/min/1.73m2 Kidney Failure < 15 mL/min/1.73m2 *Relative to young adult level Estimated glomerular filtration rate is determined by the 2020 CKD-EPI equation recommended by the National Kidney Foundation (A Unifying Approach to GFR Estimation: Recommendations of the NKF-ASK Task Force on Reassessing the Inclusion of Race in Diagnosing Kidney Disease, JASN 202). The CKD-EPI equation should not be used for patients with unstable renal function and has not been validated in children and those over 70. Current interpretive data was last reviewed 2021. Blood 08/29/2024 7:02 AM CDT 08/29/2024 8:34 AM CDT us Kobe Carranza MD LAB BLOOD ORDERABLES Fi nal Result [facility] Department [place] [address] * Differential, auto (08/29/2024 7:02 AM CDT) Neutrophil abs 3.4 1.5 - 6.5 K/cumm Imm gran abs 0.0 0.0 - 0.1 K/cumm [facility] Lymphocyte abs 2.0 0.8 - 3.3 K/cumm [facility] Monocyte abs 0.8 0.2 - 0.8 K/cumm [facility] Eosinophil abs 0.1 0.0 - 0.5 K/cumm [facility] Basophil abs 0.1 0.0 - 0.1 K/cumm [facility] Neutrophil pct 53.0 % [facility] Comment: Interpretive Data Percent cell count reference ranges are not reported, since discordance with absolute values may lead to misinterpretation of CBC data. Current Interpretive Data was last revised on 2017. Imm gran pct 0.5 % [facility] Comment: Interpretive Data Percent cell count reference ranges are not reported, since discordance with absolute values may lead to misinterpretation of CBC data. Current Interpretive Data was last revised on 2017. Lymphocyte pct 32.1 % [facility] Comment: Interpretive Data Percent cell count reference ranges are not reported, since discordance with absolute values may lead to misinterpretation of CBC data. Current Interpretive Data was last revised on 2017. Monocyte pct 12.2 % [facility] Comment: Interpretive Data Percent cell count reference ranges are not reported, since discordance with absolute values may lead to misinterpretation of CBC data. Current Interpretive Data was last revised on 2017. Eosinophil pct 1.4 % [facility] Comment: Interpretive Data Percent cell count reference ranges are not reported, since discordance with absolute values may lead to misinterpretation of CBC data. Current Interpretive Data was last revised on 2017. Basophil pct 0.8 % [facility] Comment: Interpretive Data Percent cell count reference ranges are not reported, since discordance with absolute values may lead to misinterpretation of CBC data. Current Interpretive Data was last revised on 2017. Blood 08/29/2024 7:02 AM CDT 08/29/2024 7:23 AM CDT us Lyndsay Kurtz MD LAB BLOOD ORDERABLES Final Resul t Performing Organization Address City/[facility] Co de Phone Number [facility] [place] [place] [address] * CBC with auto differential (08/29/2024 7:02 AM CDT) WBC 6.3 3.8 - 9.9 K/cumm Hgb 12.5 11.9 - 15.5 g/dL [facility] Hct 37.2 35.6 - 45.5 % [facility] Plt 221 150 - 400 K/cumm [facility] MPV 9.6 9.1 - 12.3 fL [facility] RBC 4.34 3.90 - 5.20 M/cumm [facility] MCV 85.7 81.3 - 96.4 fL [facility] MCH 28.8 27.1 - 33.3 pg [facility] MCHC 33.6 32.3 - 35.7 g/dL [facility] RDW CV 13.2 11.1 - 14.9 % [facility] RDW SD 41.3 35.7 - 48.1 fL [facility] NRBC abs 0.00 0.00 - 0.01 K/cumm [facility] Blood 08/29/2024 7:02 AM CDT 08/29/2024 7:23 AM CDT us Lyndsay Kurtz MD LAB BLOOD ORDERABLES Final Resul t Performing Organization Address [facility] Co de Phone Number [facility] Department [place] [address] * Basic metabolic panel (08/29/2024 7:02 AM CDT) Sodium 141 135 - 145 mmol/L Potassium, pl 4.2 3.3 - 4.9 mmol/L [facility] Chloride 105 97 - 110 mmol/L [facility] CO2 29 22 - 32 mmol/L [facility] Anion gap 7 2 - 15 mmol/L [facility] BUN 15 6 - 25 mg/dL [facility] Creatinine 0.94 0.60 - 1.10 mg/dL [facility] Glucose 116 70 - 199 mg/dL [facility] Comment: Interpretive Data Fasting glucose >/= 126 mg/dl is diagnostic for diabetes. Fasting is defined as no caloric intake for at least 8 hours. Fasting glucose between 100 mg/dl to 125 mg/dl is diagnostic of prediabetes. In a patient with classic symptoms of hyperglycemia or hyperglycemic crisis, a random glucose >/= 200 mg/dl is diagnostic for diabetes. In the absence of unequivocal hyperglycemia, results should be confirmed by repeat testing. The classification and Diagnosis of Diabetes Diabetes Care 2021; 46: S19-S40. Current interpretive data was last revised 2022. Calcium 9.0 8.5 - 10.3 mg/dL [facility] Blood 08/29/2024 7:02 AM CDT 08/29/2024 8:34 AM CDT Kobe Carranza MD LAB BLOOD ORDERABLES Fi nal Result [facility] [place] [address] * IR Embolization Tumor Organ Ischemia or Infarction (08/28/2024 12:10 PM CDT) Anatomical Region Laterality Modality Body N/A X-Ray Angiograph y 08/28/2024 4:06 PM CDT Impressions 08/28/2024 4:58 PM CDT Successful embolization of right renal angiomyolipoma using particles and coils as mentioned above. PLAN: 1. Right leg straight for 2 hours. 2. Patient will be admitted to observation overnight. Dictated by: Kobe Carranza M.D. The radiology attending physician has personally reviewed this study, and had reviewed and/or edited this written report and agrees with it. Electronically signed by: Weston Barnes M.D. Narrative 08/28/2024 4:58 PM CDT EXAMINATION: DIAGNOSTIC RIGHT RENAL ANGIOGRAPHY WITH EMBOLIZATION OF ANGIOMYOLIPOMA HISTORY/INDICATION: 58-year-old woman with incidentally discovered right renal angiomyolipoma seen on MRI from 03/23/2024 measuring approximately 2.8 x 5.5 cm. She denies any family history of hereditary syndromes. She reports mild right flank pain. ATTENDING PRESENCE: Weston Barnes M.D., the attending radiologist was present from the beginning to the end of the procedure. SEDATION: Procedural sedation was administered under the attending physician's direction and continuous monitoring by a trained nurse specialist who was independent from those actually performing the procedure. Total monitored sedation time was 120 minutes. TECHNIQUE: The risks, benefits and alternatives were discussed and informed consent was obtained. Prior to beginning the procedure, [place] Protocol was performed to confirm the patient's identity and the planned procedure. The fluoroscopy time has been recorded in the electronic medical record. Maximum sterile barriers including cap, mask, hand hygiene, sterile gloves, sterile gown, large sterile drape and 2% chlorhexidine for cutaneous antisepsis were used. After sterile prep, the skin over the right common femoral artery was infiltrated with 1% Lidocaine. The artery was punctured under real time ultrasound guidance. An image of the patent vessel was recorded. A 6 Fr American sheath was placed and connected to a heparinized saline drip. The following arteries were catheterized and selective angiograms were performed: Right accessory renal artery (1st order) Right renal artery (1st order) Superior segmental artery arising from the right renal artery (2nd order) Interlobar artery arising from the superior segmental artery (3rd order) Capsular artery arising from the right renal artery (2nd order) The equipment used for catheterization was 5 American Sos and Cobra C2 glide catheter and a 0.035 guidewire. The equipment used for selective catheterization was Progreat and dotty Truselect catheter and a combination of Fathom, GT glide and Transend wire. The interlobar artery supplying the angiomyolipoma (AML) vasospasmed when the microcatheter was advanced. 100 mcg of nitroglycerin was given and the artery continued to vasospasm. Decision was made to treat the angiomyolipoma from the capsular artery arising directly from the right renal artery. Using a Sos and a Truselect microcatheter the capsular artery was selected 6cc of 300 to 500 um embospheres was injected. This was followed by coil embolization with a 2 mm x 6 mm Embold coil. Post-embolization angiography was performed. A cone beam CT without injecting contrast was also performed. After completion of embolization, a limited common femoral artery angiogram was performed to confirm satisfactory position of arterial puncture site. Angioseal device was deployed to accomplish successful closure of the arteriotomy. ESTIMATED BLOOD LOSS: Minimal. CONDITION: Stable DISCHARGED TO: patient care division. FINDINGS: Ultrasound image demonstrates a patent right common femoral artery. The accessory right renal artery supplied the lower pole of the kidney. The right renal artery supply the upper and middle pole of the kidney along with the angiomyolipoma. The glover contributors of the angiomyolipoma are the capsular artery and interlobar branch of the superior segmental artery. The interlobar branch of the superior segmental artery vasospasmed when a microcatheter was advanced into it despite nitroglycerin administration. Decision was then made to treat the angiomyolipoma from the capsular branch. Embolization was performed with 300 to 500 um embospheres. There was a small area of extravasation which was treated with a 2 mm x 6 mm coil. Post angiography run and cone beam CT demonstrated successful embolization of the AML. Procedure Note Weston Barnes MD - 08/28/2024 EXAMINATION: DIAGNOSTIC RIGHT RENAL ANGIOGRAPHY WITH EMBOLIZATION OF ANGIOMYOLIPOMA HISTORY/INDICATION: 58-year-old woman with incidentally discovered right renal angiomyolipoma seen on MRI from 03/23/2024 measuring approximately 2.8 x 5.5 cm. She denies any family history of hereditary syndromes. She reports mild right flank pain. ATTENDING PRESENCE: Weston Barnes M.D., the attending radiologist was present from the beginning to the end of the procedure. SEDATION: Procedural sedation was administered under the attending physician's direction and continuous monitoring by a trained nurse specialist who was independent from those actually performing the procedure. Total monitored sedation time was 120 minutes. TECHNIQUE: The risks, benefits and alternatives were discussed and informed consent was obtained. Prior to beginning the procedure, [place] Protocol was performed to confirm the patient's identity and the planned procedure. The fluoroscopy time has been recorded in the electronic medical record. Maximum sterile barriers including cap, mask, hand hygiene, sterile gloves, sterile gown, large sterile drape and 2% chlorhexidine for cutaneous antisepsis were used. After sterile prep, the skin over the right common femoral artery was infiltrated with 1% Lidocaine. The artery was punctured under real time ultrasound guidance. An image of the patent vessel was recorded. A 6 Fr American sheath was placed and connected to a heparinized saline drip. The following arteries were catheterized and selective angiograms were performed: Right accessory renal artery (1st order) Right renal artery (1st order) Superior segmental artery arising from the right renal artery (2nd order) Interlobar artery arising from the superior segmental artery (3rd order) Capsular artery arising from the right renal artery (2nd order) The equipment used for catheterization was 5 American Sos and Cobra C2 glide catheter and a 0.035 guidewire. The equipment used for selective catheterization was Progreat and dotty Truselect catheter and a combination of Fathom, GT glide and Transend wire. The interlobar artery supplying the angiomyolipoma (AML) vasospasmed when the microcatheter was advanced. 100 mcg of nitroglycerin was given and the artery continued to vasospasm. Decision was made to treat the angiomyolipoma from the capsular artery arising directly from the right renal artery. Using a Sos and a Truselect microcatheter the capsular artery was selected 6cc of 300 to 500 um embospheres was injected. This was followed by coil embolization with a 2 mm x 6 mm Embold coil. Post-embolization angiography was performed. A cone beam CT without injecting contrast was also performed. After completion of embolization, a limited common femoral artery angiogram was performed to confirm satisfactory position of arterial puncture site. Angioseal device was deployed to accomplish successful closure of the arteriotomy. ESTIMATED BLOOD LOSS: Minimal. CONDITION: Stable DISCHARGED TO: patient care division. FINDINGS: Ultrasound image demonstrates a patent right common femoral artery. The accessory right renal artery supplied the lower pole of the kidney. The right renal artery supply the upper and middle pole of the kidney along with the angiomyolipoma. The glover contributors of the angiomyolipoma are the capsular artery and interlobar branch of the superior segmental artery. The interlobar branch of the superior segmental artery vasospasmed when a microcatheter was advanced into it despite nitroglycerin administration. Decision was then made to treat the angiomyolipoma from the capsular branch. Embolization was performed with 300 to 500 um embospheres. There was a small area of extravasation which was treated with a 2 mm x 6 mm coil. Post angiography run and cone beam CT demonstrated successful embolization of the AML. 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 PLAN: 1. Right leg straight for 2 hours. 2. Patient will be admitted to observation overnight. Dictated by: Kobe Carranza M.D. The radiology attending physician has personally reviewed this study, and had reviewed and/or edited this written report and agrees with it. Electronically signed by: Weston Barnes M.D. Lyndsay Kurtz MD IMG IR PROCEDURES Final Result * eGFR (08/28/2024 7:58 AM CDT) eGFR 84 >=60 mL/min/1. 73 m2 Comment: Interpretive Data Reference Interval Normal >/= 90 mL/min/1.73m2 Mildly decreased* 60 - 89 mL/min/1.73m2 Mildly to moderately decreased 45 - 59 mL/min/1.73m2 Moderately to severely decreased 30 - 44 mL/min/1.73m2 Severely decreased 15 - 29 mL/min/1.73m2 Kidney Failure < 15 mL/min/1.73m2 *Relative to young adult level Estimated glomerular filtration rate is determined by the 2020 CKD-EPI equation recommended by the National Kid[employer] (A Unifying Approach to GFR Estimation: Recommendations of the NKF-ASK Task Force on Reassessing the Inclusion of Race in Diagnosing Kidney Disease, JASN 202). The CKD-EPI equation should not be used for patients with unstable renal function and has not been validated in children and those over 70. Current interpretive data was last reviewed 2021. Blood 08/28/2024 7:58 AM CDT 08/28/2024 8:16 AM CDT Weston Barnes MD LAB BLOOD ORDERABLES Final Result [facility] [place] [address] * Differential, auto (08/28/2024 7:58 AM CDT) Neutrophil abs 3.2 1.5 - 6.5 K/cumm Imm gran abs 0.0 0.0 - 0.1 K/cumm [facility] Lymphocyte abs 2.7 0.8 - 3.3 K/cumm [facility] Monocyte abs 0.6 0.2 - 0.8 K/cumm [facility] Eosinophil abs 0.1 0.0 - 0.5 K/cumm [facility] Basophil abs 0.1 0.0 - 0.1 K/cumm [facility] Neutrophil pct 47.1 % [facility] Comment: Interpretive Data Percent cell count reference ranges are not reported, since discordance with absolute values may lead to misinterpretation of CBC data. Current Interpretive Data was last revised on 2017. Imm gran pct 0.6 % [facility] Comment: Interpretive Data Percent cell count reference ranges are not reported, since discordance with absolute values may lead to misinterpretation of CBC data. Current Interpretive Data was last revised on 2017. Lymphocyte pct 40.6 % [facility] Comment: Interpretive Data Percent cell count reference ranges are not reported, since discordance with absolute values may lead to misinterpretation of CBC data. Current Interpretive Data was last revised on 2017. Monocyte pct 9.6 % [facility] Comment: Interpretive Data Percent cell count reference ranges are not reported, since discordance with absolute values may lead to misinterpretation of CBC data. Current Interpretive Data was last revised on 2017. Eosinophil pct 1.2 % [facility] Comment: Interpretive Data Percent cell count reference ranges are not reported, since discordance with absolute values may lead to misinterpretation of CBC data. Current Interpretive Data was last revised on 2017. Basophil pct 0.9 % [facility] Comment: Interpretive Data Percent cell count reference ranges are not reported, since discordance with absolute values may lead to misinterpretation of CBC data. Current Interpretive Data was last revised on 2017. Blood 08/28/2024 7:58 AM T [id number]|2024-10-19 10:09:00|2024-10-19 10:09:00|XMS_ITS|JACQUELINE LEWIS|External Medical Summaries|[id number]|" Encounter Summary Created on: October 19, 2024 Aniya Ann : 1965 Sex: Female Author Organization [facility] Address [address] [place] [address] Phone Care Team Providers Care Professor Of German Name Role Phone Tristian Reed DO Primary Care Provider [phone]- [phone] Encounter Details Date Type Department Care Team (Latest Contact Info) Description 06/13/2023 Orders Only [facility] Scanning, Provider Social History Tobacco Use Types Packs/Day Years Used Date Smoking Tobacco: Never AUDIT-C Answer Date Recorded Q1: How often do you have a drink containing alcohol? Never 05/03/2023 Q2: How many drinks containi ng alcohol do you have on a typical day when you are drinking? Patient does not drink Q3: How often do you have si x or more drinks on one occasion? Never 05/03/2023 Personal Safety Answer Date Recorded Have you ever been in or are you currently in a harmful physical or emotional relationship or is someone making you feel afraid or unsafe? Denies 05/03/2023 Comments No Sex and Gender Information Value Date Recorded Sex Assigned at Not on file Legal Sex Female 3:52 AM PROCUREMENT MANAGER Gender Identity Female 05/24/2022 8:12 PM PROCUREMENT MANAGER Sexual Orientation Straight 05/24/2022 8: 12 PM PROCUREMENT MANAGER documented as of this encounter Plan of Treatment Not on file documented as of this encounter Procedures Procedure Name Priority Date/Time Associated Diagnosis Comments SCAN - RADIOLOGY/IMAGING 06/13/2023 documented in this encounter Results * SCAN - RADIOLOGY/IMAGING (06/13/2023) Anatomical Region Laterality Modality Other us Provider Scanning Final Result documented in this encounter Visit Diagnoses Not on filedocumented in this encounter Care Teams Professor Of German Relationship Specialty Start Date End Date Tristian Reed DO PCP - General Internal Medicine 09/22/21 documented as of this encounter "
--- OUTSIDE RECORDS SUMMARY | 2024-10-19 10:09 | XMS_ITS | Encounter Summary ---
Author Organization [facility] Address [address] [place] [address] Phone Care Team Providers Care Denial Management Representative Name Role Phone Tristian Reed DO Primary Care Provider [phone]- [phone] Encounter Details Date Type Department Care Team (Latest Contact Info) Description 07/25/2023 Orders Only [facility] Scanning, Provider [...] on file Legal Sex Female 3:52 AM PBX WIRE CHIEF Gender Identity Female 05/24/2022 8:12 PM PBX WIRE CHIEF Sexual Orientation Straight 05/24/2022 8: 12 PM PBX WIRE CHIEF documented as of this encounter Plan of Treatment Not on file documented as of this encounter Procedures Procedure Name Priority Date/Time Associated Diagnosis Comments SCAN - RADIOLOGY/IMAGING 07/25/2023 documented in this encounter Results * SCAN - RADIOLOGY/IMAGING (07/25/2023) Anatomical Region Laterality Modality Other us Provider Scanning Final Result documented in this encounter Visit Diagnoses Not on filedocumented in this encounter Care Teams Denial Management Representative Relationship Specialty Start Date End Date Tristian Reed DO PCP - General Internal Medicine 09/22/21 documented as of this encounter
--- OUTSIDE RECORDS SUMMARY | 2024-10-19 10:09 | XMS_ITS | Clinical Summary ---
Author Organization [facility] Address [facility] [place] [address] Care Team Providers Care Rod Tape Operator Name Role Phone Tristian Reed DO Primary Care Provider +1- [phone] Allergies No known active allergies Medications atorvastatin [...] needle, diabetic (Pen Needle) 31 gauge x 16 needle Use as directed once a day [...] daily as needed for constipation 10 tablet Active ondansetron ODT (ZOFRAN-ODT) 4 mg disintegrating tablet Take 1 tablet (4 mg total) by mouth every 8 (eight) hours as needed for nausea or vomiting 20 tablet Active oxyCODONE (ROXICODONE) 5 mg immediate release tabletIndication s:Pain Take 1 tablet (5 mg total) by mouth every 6 (six) hours as needed for pain 10 tablet Active abaloparatide (Tymlos) 80 mcg (3,120 mcg/1.56 [...] USE) 1.56 mL 2 025 2024 Discontinued(R eoemeliaer) Hospital, Clinic, or Other Facility Administered Medication [...] Overview (05/02/2023): Decreased libido;Recorded Elsewhere: No Location: [facility] Source: EHR Chronic: N Practice ID: [id number] Billable Time: 09:45:00 AM Superficial dyspareunia 07/25/2019 Overview (05/02/2023): Superficial (introital) dyspareunia;Practice ID: [id number] Leukocytosis 07/25/2019 Overview (05/02/2023): Elevated white blood cell count, unspecified;Practice ID: [id number] Encounters Date Type Department Care Team Description 10/12/2024 Telephone [facility] Scheduling [address] [place] [address] Everton De Santiago MD 08/28/2024 12:28 PM CDT - 08/29/2024 11:25 AM CDT Hospital Encounter [facility] [address] [place] [address] Luma Jimenez MD Aluko, Sheun, MD Kavali, Pavan Kumar, MD Angiomyolipoma Discharge Disposition: Discharge to home or self care 08/28/2024 9:00 AM CDT Office Visit [facility] 1 [facility] 1st [place] [address] Angiomyolipoma 08/28/2024 Telephone Radiology 1 [place] [address] Sharon Santos PA 08/24/2024 2:20 PM CDT Procedure visit [facility] Neurological Testing [address] 6th [place] [address] [place] [address] Cervical stenosis of spine; Paresthesia of hand, bilateral; Weakness of both lower extremities; Paresthesia of skin; Falls 08/23/2024 Telephone [facility] Radiology [address] [place] [address] Wayne Nye RN 08/09/2024 Orders Only [facility] General Neurology [address] [place] [address] Sherry Cruz Intractable chronic migraine without aura and without status migrainosus (Primary Dx) 08/08/2024 Orders Only [facility] Radiology [address] [place] [address] Sarahi Daley, NAGI Angiomyolipoma (Primary Dx) 08/07/2024 Telephone [facility] Radiology [address] [place] [address] Sarahi Daley, NAGI 08/06/2024 2:30 PM BUTTON BROACHER Office Visit [facility] Radiology, Interventional Radiology [address] [place] [address] Weston Barnes MD Angiomyolipoma 08/02/2024 1:00 PM BUTTON BROACHER Procedure visit [facility] General Neurology [address] [place] [phone] Cheng Stanley MD Chronic migraine without aura without status migrainosus, not intractable (Primary Dx) 07/25/2024 Telephone [facility] Radiology [address] [place] [address] Sarahi Daley RN from Last 3 Months Surgical History Surgery Date Site/Laterality Comments TUBAL LIGATION SECTION EMBOLIZATION ORGAN ISCHEMIA OR INFARCTION 08/28/2024 N/A Medical History Medical History Date Comments Fibromyalgia Osteoporosis Hemorrhoid PONV (postoperative nausea and vomiting) GERD (gastroesophageal reflux disease) Irritable bowel syndrome Hypothyroidism Family History Medical History Relation Name Comments Leukemia Father Lung cancer Father Heart disease Maternal Grandfather Lupus Maternal Grandmother Osteoporosis Maternal Grandmother Rheum arthritis Maternal Grandmother Multiple sclerosis Mother Osteoporosis Mother Rheum arthritis Mother Broken bones Neg Hx Hip fracture Neg Hx Kyphosis Neg Hx Scoliosis Neg Hx Relation Name Status Comments Father Maternal Grandfather Maternal Grandmother Mother Social History Tobacco Use Types Packs/Day Years [...] on file Legal Sex Female 3:52 AM BUTTON BROACHER Gender Identity Female 05/24/2022 8:12 PM BUTTON BROACHER Sexual Orientation Straight 05/24/2022 8: 12 PM BUTTON BROACHER Obstetrics History Last Filed Vital Signs Vital Sign Reading [...] 08/28/2024 12:30 PM CDT Plan of Treatment Health Maintenance Due Date Last Done Comments Cervical Cancer Screening 1965 Colon Cancer Screening-Colonoscopy 1965 Depression Screening 1965 Hepatitis C Screening 1965 DTaP/Tdap/Td Vaccine (1 - Tdap) 12/09/1974 Hepatitis B Screening 12/09/1981 Regular Well Visit/Exam 18-64 12/09/1981 Zoster Vaccine (1 of 2) 12/09/2013 Influenza Vaccine (Season Ended) 2025 Breast Cancer Screening-Mammogram 02/26/2025 02/27/2024, 05/18/2022, 09/03/2021, Additional history exists Pneumococcal vaccine <65 Aged Out No longer eligible based on patient's age to complete this topic Medical Devices Implanted Type Area Admitting Representative Device Identifier Shelf Expiration Date Model / Serial / Lot Shi & Nephew/Richco/Or tho Plate Std 48mm 3 Hole Evos Bone Radial Right Distal Volar [id number] - [id number] Implanted:Qty: 1 on 05/03/2023 by Cheng Ferrera MD at [facility] Right: Radius [employer]hew[employer]Richco/Or tho [id number] / / [employer]hew/Richco/Or tho Evos Mini 2mm 3.3mm 10mm Lock Procurement Internship Long Bone Small Bone T6 [id number] - [id number] Implanted:Qty: 1 on 05/03/2023 by Cheng Ferrera MD at [facility] Right: Radius [employer] Nephew/Richco/Or tho [id number] / / Shi & Nephew/Richco/Or tho Evos Mini 02i9-65.3x1.2mm 71mm 3 Hole Head 5 Hole Shaft Variable [id number] - [id number] Implanted:Qty: 1 on 05/03/2023 by Cheng Ferrera MD at [facility] Right: Radius [employer] Nephew/Richco/Or tho [id number] / / Shi [employer] Nephew/Richco/Or tho Evos Mini 2mm 3.3mm 20mm Lock Long Bone Small Bone T6 Screw Bone [id number] - [id number] Implanted:Qty: 1 on 05/03/2023 by Cheng Ferrera MD at [facility] Right: Radius Shi [employer] Nephew/Richco/Or tho [id number] / / Shi [employer] Nephew/Richco/Or tho Evos Mini 2.4mm 3.8mm 12mm Self Tap Procurement Internship Long Bone Small Bone [id number] - [id number] Implanted:Qty: 2 on 05/03/2023 by Cheng Ferrera MD at [facility] Right: Radius [employer] Nephew/Richco/Or tho [id number] / / [employer]hew/Richco/Or tho 2.4mm 3.8mm 10mm Self Retaining Screwdriver Self Tap Flat Head [id number] - [id number] Implanted:Qty: 1 on 05/03/2023 by Cheng Ferrera MD at [facility] Right: Radius [employer]hew/Richco/Or tho [id number] / / [employer]hew/Richco/Or tho Evos Mini 2.4mm 3.8mm 14mm Lock Long Bone Small Bone T7 Screw [id number] - [id number] Implanted:Qty: 2 on 05/03/2023 by Cheng Ferrera MD at [facility] Right: Radius [employer]hew/Richco/Or tho [id number] / / Shi [employer] Nephew/Richco/Or tho Evos Mini 2.4mm 3.8mm 17mm Lock Long Bone Small Bone T7 Screw [id number] - [id number] Implanted:Qty: 1 on 05/03/2023 by Cheng Ferrera MD at [facility] Right: Radius [employer] Nephew/Richco/Or tho [id number] / / Shi & Nephew/Richco/Or tho Evos Mini 2.4mm 3.8mm 18mm Lock Procurement Internship Long Bone Small Bone T7 [id number] - [id number] Implanted:Qty: 1 on 05/03/2023 by Cheng Ferrera MD at [facility] Right: Radius Shi [employer] Nephew/Richco/Or tho [id number] / / Shi & Nephew/Richco/Or tho 2mm 3mm 22mm Self Retaining Screwdriver Self Tap Flat Head Cortex [id number] - [id number] Implanted:Qty: 1 on 05/03/2023 by Cheng Ferrera MD at [facility] Right: Radius Shi [employer] Nephew/Richco/Or tho [id number] / / Shi & Nephew/Richco/Or tho 2mm 3mm 14mm Self Retaining Screwdriver Self Tap Flat Head Cortex [id number] - [id number] Implanted:Qty: 1 on 05/03/2023 by Cheng Ferrera MD at [facility] Right: Radius [employer] Nephew/Richco/Or tho [id number] / / [employer] Nephew/Richco/Or tho Evos Mini 2mm 3.3mm 13mm Lock Long Bone Small Bone T6 Screw Bone [id number] - [id number] Implanted:Qty: 1 on 05/03/2023 by Cheng Ferrera MD at [facility] Right: Radius Sih & Nephew/Richco/Or tho [id number] / / [employer] Embosphere Prefill Saline Syringe Compressible Nonaggregate S420gh - [id number] Implanted:Qty: 1 on 08/28/2024 at [facility] [employer] 04/07/2027 [id number] / / [id number] [employer] Rolando Coil Emolization Coated Detachable [place] Tungsten Embold 7lak2ac [id number] - [id number] Implanted:Qty: 1 on 08/28/2024 at [facility] [employer] Rolando 10/26/2026 [id number] / / [id number] [employer] Rolando Angio-Seal Vip 6fr Closere Device [id number] - [id number] Implanted:Qty: 1 on 08/28/2024 at [facility] [employer] Rolando 03/30/2025 [id number] / / [id number] Explanted Type Area Admitting Representative Device Identifier Shelf Expiration Date Model / Serial / Lot [employer] Olga .062in 4in Trocar Point Both Ends Orthopedic Wire 1600-462ns - [id number] Explanted:Qty: 1 on 05/03/2023 at [facility] Right: Radius [employer] [id number] / / [employer] Olga .045in 4in 2 [place]car [place] End No Thread Standard Wire 1600-324 - [id number] Explanted:Qty: 2 on 05/03/2023 at [facility] Right: Radius [employer] Instruments [id number] / / Procedures Procedure Name Priority Date/Time [...] of Race in Diagnosing Kidney Disease, JASN 2020). The CKD-EPI equation should not be used for patients with unstable renal function and has not been validated in children and those over 70. Current interpretive data was last reviewed 2021. Blood 08/29/2024 7:02 AM CDT 08/29/2024 8:34 AM CDT Kobe Carranza MD LAB BLOOD ORDERABLES Fi nal Result [facility] Department of Laboratories [place], [place] [id number] * Differential, auto (08/29/2024 7:02 AM CDT) Neutrophil abs 3.4 1.5 - 6.5 K/cumm Imm gran abs 0.0 0.0 - 0.1 K/cumm [facility] Lymphocyte abs 2.0 0.8 - 3.3 K/cumm [facility] Monocyte abs 0.8 0.2 - 0.8 K/cumm [facility] Eosinophil abs 0.1 0.0 - 0.5 K/cumm [facility] Basophil abs 0.1 0.0 - 0.1 K/cumm [facility] Neutrophil pct 53.0 % [facility] Comment: Interpretive Data Percent cell count reference ranges are not reported, since discordance with absolute values may lead to misinterpretation of CBC data. Current Interpretive Data was last revised on 2017. Imm gran pct 0.5 % [facility] Comment: Interpretive Data Percent cell count reference ranges are not reported, since discordance with absolute values may lead to misinterpretation of CBC data. Current Interpretive Data was last revised on 2017. Lymphocyte pct 32.1 % [facility] Comment: Interpretive Data Percent cell count reference ranges are not reported, since discordance with absolute values may lead to misinterpretation of CBC data. Current Interpretive Data was last revised on 2017. Monocyte pct 12.2 % [facility] Comment: Interpretive Data Percent cell count reference ranges are not reported, since discordance with absolute values may lead to misinterpretation of CBC data. Current Interpretive Data was last revised on 2017. Eosinophil pct 1.4 % [facility] Comment: Interpretive Data Percent cell count reference ranges are not reported, since discordance with absolute values may lead to misinterpretation of CBC data. Current Interpretive Data was last revised on 2017. Basophil pct 0.8 % [facility] Comment: Interpretive Data Percent cell count reference ranges are not reported, since discordance with absolute values may lead to misinterpretation of CBC data. Current Interpretive Data was last revised on 2017. Blood 08/29/2024 7:02 AM CDT 08/29/2024 7:23 AM CDT us Lyndsay Kurtz MD LAB BLOOD ORDERABLES Final Resul t [facility] Department [place] [address] * CBC with auto differential (08/29/2024 7:02 AM CDT) WBC 6.3 3.8 - 9.9 K/cumm Hgb 12.5 11.9 - 15.5 g/dL [facility] Hct 37.2 35.6 - 45.5 % [facility] Plt 221 150 - 400 K/cumm [facility] MPV 9.6 9.1 - 12.3 fL [facility] RBC 4.34 3.90 - 5.20 M/cumm [facility] MCV 85.7 81.3 - 96.4 fL [facility] MCH 28.8 27.1 - 33.3 pg [facility] MCHC 33.6 32.3 - 35.7 g/dL [facility] RDW CV 13.2 11.1 - 14.9 % [facility] RDW SD 41.3 35.7 - 48.1 fL [facility] NRBC abs 0.00 0.00 - 0.01 K/cumm [facility] Blood 08/29/2024 7:02 AM CDT 08/29/2024 7:23 AM CDT Lyndsay Kurtz MD LAB BLOOD ORDERABLES Final Resul t [facility] Department [place] [address] * Basic metabolic panel (08/29/2024 7:02 AM CDT) Sodium 141 135 - 145 mmol/L Potassium, pl 4.2 3.3 - 4.9 mmol/L [facility] Chloride 105 97 - 110 mmol/L [facility] CO2 29 22 - 32 mmol/L [facility] Anion gap 7 2 - 15 mmol/L [facility] BUN 15 6 - 25 mg/dL [facility] Creatinine 0.94 0.60 - 1.10 mg/dL [facility] Glucose 116 70 - 199 mg/dL [facility] Comment: Interpretive Data Fasting glucose >/= 126 [...] classification and Diagnosis of Diabetes Diabetes Care 202; 46: S19-S40. Current interpretive data was last revised 2022. Calcium 9.0 8.5 - 10.3 mg/dL [facility] Blood 08/29/2024 7:02 AM CDT 08/29/2024 8:34 AM CDT us Kobe Carranza MD LAB BLOOD ORDERABLES Fi nal Result [facility] Department [place] [address] * IR Embolization Tumor Organ Ischemia or [...] was obtained. Prior to beginning the procedure, [place] Protocol was performed to confirm the patient's [...] patent vessel was recorded. A 6 Fr Gabonese sheath was placed and connected to a [...] The equipment used for catheterization was 5 Gabonese Sos and Cobra C2 glide catheter and [...] was obtained. Prior to beginning the procedure, [place] Protocol was performed to confirm the patient's [...] patent vessel was recorded. A 6 Fr Gabonese sheath was placed and connected to a [...] The equipment used for catheterization was 5 Gabonese Sos and Cobra C2 glide catheter and [...] it. Electronically signed by: Weston Barnes M.D. us Lyndsay Kurtz MD IMG IR PROCEDURES Final [...] of Race in Diagnosing Kidney Disease, JASN 2020). The CKD-EPI equation should not be used for patients with unstable renal function and has not been validated in children and those over 70. Current interpretive data was last reviewed 2021. Blood 08/28/2024 7:58 AM CDT 08/28/2024 8:16 AM CDT us Weston Barnes MD LAB BLOOD ORDERABLES Final Result [facility] [id number]|2024-10-19 10:09:00|2024-10-19 10:09:00|XMS_ITS|BKG DAEMON|External Medical Summaries|[id number]|" Clinical Summary Created on: October 19, 2024 Aniya Ann : 1965 Sex: Female Author Organization [facility] Address [address] [place] [address] Care Team Providers Care Rod Tape Operator Name Role Phone Unavailable Primary Care Provider Unavailabl e Social History Tobacco Use Types Packs/Day Years Used Date Smoking Tobacco: Never Assessed Comments Unknown Sex and Gender Information Value Date Recorded Sex Assigned at Not on file Legal Sex Female 3:13 PM CDT Gender Identity Not on file Sexual Orientation Not on file Plan of Treatment Upcoming Encounters Date Type Department Care Team (Late st Contact Info) Description 10/22/2024 1:30 PM CDT Appointment [facility] [address] [place] [address] Weston Barnes MD [address] [place] [address] Health Maintenance Due Date Last Done Comments Cervical Cancer Screening Pa p Smear (Age 30 to 64) Every 3 Years 1965 Colorectal Cancer Screening Colonoscopy (10 Years) 1965 Annual Physical 12/09/1966 Hepatitis C 12/09/1981 DTaP, Tdap and Td Vaccines ( 1 - Tdap) 12/09/1982 Cervical Cancer Screening Pa p with HPV Testing (Age 30 to 64) Every 5 Years 12/09/1993 Cervical Cancer Screening with HPV 12/09/1993 Mammogram Screening 2003 Pneumococcal Vaccine: 50+ Ye ars (1 of 1 - PCV) 12/09/2013 Zoster Vaccines (1 of 2) 12/09/2013 COVID-19 Vaccine ( - 2023-2 5 season) 2024 RSV Immunization or 60+ Years (1 - 1-dose 75+ series) 12/09/2038 Meningococcal B Vaccine Aged Out No l onger eligible based on patient's age to complete this topic Meningococcal Vaccine Aged Out No ravindra timbo eligible based on patient's age to complete this topic RSV Immunizations Under 20 Months Aged Out No longer eligible based on patient's age to complete this topic Medical Devices Implanted Type Area Admitting Representative Device Identifier Shelf Expiration Date Model / Serial / Lot Right Renal Embolization Coil-08/28/2024 Implanted:Qty: 1 on 08/28/2024 Coil Right: Kidney [employer] ROLANDO EMBOLD COIL / / Description:MR CONDITIONAL A T 1.5 T OR 3 T, MAX SPATIAL GRADIENT FIELD OF 4000 GAUSS/CM OR LESS, MAX WHOLE BODY MITRA OF 2 W/KG OR LESS, HEAD MITRA 3.2 W/KG OR LESS Insurance "
--- OUTSIDE RECORDS SUMMARY | 2024-10-19 10:09 | XMS_ITS | Encounter Summary ---
Author Organization [facility] Address [address] [place] [address] Phone Care Team Providers Care Physical Chemist Name Role Phone Tristian Reed DO Primary Care Provider +1- [phone] Encounter Details Date Type Department Care Team (Latest Contact Info) Description 05/16/2023 Orders Only [facility] Scanning, Provider [...] on file Legal Sex Female 3:52 AM INCOMING FREIGHT CLERK Gender Identity Female 05/24/2022 8:12 PM INCOMING FREIGHT CLERK Sexual Orientation Straight 05/24/2022 8: 12 PM INCOMING FREIGHT CLERK documented as of this encounter Plan of Treatment Not on file documented as of this encounter Procedures Procedure Name Priority Date/Time Associated Diagnosis Comments SCAN - RADIOLOGY/IMAGING 05/16/2023 documented in this encounter Results * SCAN - RADIOLOGY/IMAGING (05/16/2023) Anatomical Region Laterality Modality Other us Provider Scanning Final Result documented in this encounter Visit Diagnoses Not on filedocumented in this encounter Care Teams Physical Chemist Relationship Specialty Start Date End Date Tristian Reed DO PCP - General Internal Medicine 09/22/21 documented as of this encounter
--- OUTSIDE RECORDS SUMMARY | 2024-10-19 10:09 | XMS_ITS | CONTINUITY OF CARE DOCUMENT ---
Author Name sonido head Address Unknown Organization [facility] Address [address] [place] [address] Phone [phone] Care Team Providers Care Baker Test Name Role Phone sonido head Unavailable Unavailable
--- OUTSIDE RECORDS SUMMARY | 2024-10-19 10:09 | XMS_ITS | Encounter Summary ---
Author Organization [facility] Address [address] [place] [address] Phone Care Team Providers Care Drawer Fitter Name Role Phone Tristian Reed DO Primary Care Provider +1- [phone] Encounter Details Date Type Department Care Team (Late st Contact Info) Description 10/08/2022 Orders Only [facility] Scanning, Provider Social History Tobacco Use Types Packs/Day Years Used Date Smoking Tobacco: Never AUDIT-C Answer Date Recorded Q1: How often do you have a drink containing alc ohol? Never 02/18/2022 Average Number of Drinks Not on file 022 Frequency of Binge Drinking Not on file 02/04 Comments Unknown Sex and Gender Information Value Date Recorded Sex Assigned at Not on file Legal Sex Female 3:52 AM CATTYMAN Gender Identity Female 05/24/2022 8:12 PM CATTYMAN Sexual Orientation Straight 05/24/2022 8: 12 PM CATTYMAN documented as of this encounter Plan of Treatment Not on file documented as of this encounter Procedures Procedure Name Priority Date/Time Associated Diagnosis Comments SCAN - RADIOLOGY/IMAGING 10/08/2022 documented in this encounter Results * SCAN - RADIOLOGY/IMAGING (10/08/2022) Anatomical Region Laterality Modality Other us Provider Scanning Final Result documented in this encounter Visit Diagnoses Not on filedocumented in this encounter Care Teams Drawer Fitter Relationship Specialty Start Date End Date Tristian Reed, DO PCP - General Internal Medicine 09/22/21 documented as of this encounter
--- OUTSIDE RECORDS SUMMARY | 2024-10-19 10:09 | XMS_ITS | Data Portability ---
Author Organization [facility] Address [address] [place] [address] [place] [address] Care Team Providers Care Automotive Quality Manager Name Role Phone DILEEP REED Primary Care Provider [phone] BUTCH MCKEON Orthopedic Surgeon Assessment Encounter Date Assessment Date Assessment LastModified by Organization Details LastModified Time 09/03/2021 09/03/2021 Annual gynecological exam performed. Patient will come back in a year unless there are new symptoms. Not available 09/03/2021 11:54:12 09/14/2022 09/14/2022 Annual gynecological exam performed. Patient will come back in a year unless there are new symptoms. Not available 09/14/2022 12:24:58 09/17/2023 09/17/2023 Annual gynecological exam performed. Patient will come back in a year unless there are new symptoms. [email or web address] Not available 09/17/2023 12:32:34 Plan of Treatment Reminders Order Date Submit Date Provider Last Modified By Organization Details Last Modified Time Details Appointments None recorded. Lab None recorded. Referral None recorded. Procedures None recorded. Surgeries None recorded. Imaging US, transvagina l 2024 025 [email or web address] [place], [address], [place], [address], 21:40:50 MAMMO, diagnostic, digital, unilateral 2024 [email or web address] [place] [address] - [facility], [address], [place], [address], 5 10:59:05 US, pelvis, complete [email or web address] [place] [address] Ctr, [address], [place], [address], 5 10:39:09 MAMMO, screening, bilateral [address] C[address], [address], [place], [address], 4 12:53:33 MAMMO, screening, bilateral [address], [address], [place], [address], 3 13:53:37 Medication Orders hydroquinon e 4 % topical cream 2023 024 [email or web address] Not available 4 12:56:46 valacyclovi r 1 gram tablet 2022 023 DARCY [facility], [facility] [address], [address], [place], [place], [id number], 3 12:50:22 valacyclovi r 1 gram tablet 2021 022 DARCY [facility], [address], [address], [place], [place], [id number], 2 12:04:54 Patient TargetsNo targets recorded. Patient InstructionsNo instructions recorded. Reason for Referral None Reported. 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 Atrop hic cell rosalva painter. Elect pilar geller alivia d by Sam abbasi, Jennifer michel, CT on 022 at 9:19 PM ----- ----- ----- ----- ----- ----- ----- ----- ----- ----- ----- ----- ----- ----- ----- ----- ----- ---- HPV RESUL TS: HPV mRNA E6/E7 : No HPV mRNA Detec geni NOTE: This high risk HPV mRNA assay detec ts fourt een high- risk HPV types (16, 18, 31, 33, 35, 39, 45, 51, 52, 56, 58, 59, 66, 68) witho ut diffe renti ation . COMME NT: Note: This speci men was revie wed by a Cytot echno logis t and/o r Patho logis t (as indic ated in this repor t) after evalu ation using the Thinp rep Imagi ng Syste m. CLINI [facility] INFOR MATIO N: Menst rual Statu s: LMP (if appli cable ): Clini stanton Histo ry/Pr eviou s Pap: Type of Neopl aldo (if appli cable ): Signi fican t Clini stanton Findi ngs: Other Histo ry: Hormo nataly (if appli cable ): PAP EDUCA LUX L NOTE: The Pap Test is a scree sulma test with an inher ent false negat judy rate. Liqui d-bas ed sampl ing may decre ase, but will not elimi roberto carlos, false negat judy resul ts. A negat judy resul t does not precl ude the prese nce and/o r devel opmen t of disea se, since the prese nce of abnor mal cells in the sampl e depen ds on the locat ion of the lesio n and sampl ing techn ique. Sammi nued regul ar scree sulma is the best metho d of cance r preve ntion . If repor geni cytol ogic findi ng do not corre late with physi stanton and/o r histo rical findi ngs, furth er inves tigat ion is recom syed d, as clini nixon [place] nted. Not Available [facility] (Lab) [address], [place], [address], 09/10/2021 22:23:16 09/15/19 23 09/14/2022 IMAGE GUIDE D PAP AND HPV REGAR DLESS image guided Pap, HPV regardless of Pap result SEE RESULT S BELOW CASE REPOR T: Cytol ogy Gynec ologi stanton Repor t Case: [id number] Autho asad g Provi rosa: Taco Pillai Colle cted: 09/14 1546 STAFF ELECT[employer]IC [employer] OFFICER Order ing Locat ion: [place] Patho logy Recei paulo: 09/15 0140 First Scree n: Maru Herr Speci men: Scree sulma Pap - Image d, Cervi x STATE MENT OF ADEQU ACY: Satis facto ry for evalu ation Trans forma tion zone compo nent prese nt FINAL DIAGN OSIS: Negat judy for Intra epith elial Lesio n or Malig amber (NIL) . Atrop hy prese nt Elect pilar geller alivia d by Maru Herr on 2022 at 6:29 PM ----- ----- ----- ----- ----- ----- ----- ----- ----- ----- ----- ----- ----- ----- ----- ----- ----- ---- HPV RESUL TS: HPV mRNA E6/E7 : No HPV mRNA Detec geni NOTE: This high risk HPV mRNA assay detec ts fourt een high- risk HPV types (16, 18, 31, 33, 35, 39, 45, 51, 52, 56, 58, 59, 66, 68) witho ut diffe renti ation . COMME NT: This speci men was revie wed by a Cytot echno logis t and/o r Patho logis t (as indic ated in this repor t) after evalu ation using the Thinp rep Imagi ng Syste m. CLINI [facility] INFOR MATIO N: Menst rual Statu s: LMP (if appli cable ): Clini [facility] Histo ry/Pr eviou s Pap: Type of Neopl aldo (if appli cable ): Signi fican t Clini stanton Findi ngs: Other Histo ry: Hormo nataly (if appli cable ): PAP EDUCA LUX L NOTE: The Pap Test is a scree sulma test with an inher ent false negat judy rate. Liqui d-bas ed sampl ing may decre ase, but will not elimi roberto carlos, false negat judy resul ts. A negat judy resul t does not precl ude the prese nce and/o r devel opmen t of disea se, since the prese nce of abnor mal cells in the sampl e depen ds on the locat ion of the lesio n and sampl ing techn ique. Sammi nued regul ar scree sulma is the best metho d of cance r preve ntion . If repor geni cytol ogic findi ng do not corre late with physi stanton and/o r histo rical findi ngs, fur er inves tigat ion is recom syed d, as clini nixon [place] nted. Not Available [facility] (Lab) [address], [place], [address], 09/16/2022 19:32:36 09/19/19 24 09/19/2023 IMAGE GUIDE D PAP AND HPV REGAR DLESS image guided Pap, HPV regardless of Pap result SEE RESULT S BELOW CASE REPOR T: Cytol ogy Gynec ologi stanton Repor t Case: [id number] Autho asad martínez Provi rosa: Taco Pillai Colle cted: 09/18 0931 STAFF ELECT[employer] OFFICER Order ing Locat ion: [place] Patho logy Recei paulo: 09/19 0703 First Scree n: Jaycee Mendes, CT Speci men: Scree sulma Pap - Image d, Cervi x STATE MENT OF ADEQU ACY: Satis facto ry for evalu ation Trans forma tion zone compo nent prese nt FINAL DIAGN OSIS: Negat judy for Intra epith elial Jamar stokes or Nile clark (NIL) . Atrop hy prese nt. Elect pilar geller alivia d by Jaycee Mendes, CT on 2023 at 6:44 PM ----- ----- ----- ----- ----- ----- ----- ----- ----- ----- ----- ----- ----- ----- ----- ----- ----- ---- HPV RESUL TS: HPV mRNA E6/E7 : No HPV mRNA Detec geni NOTE: This high risk HPV mRNA assay detec ts fourt een high- risk HPV types (16, 18, 31, 33, 35, 39, 45, 51, 52, 56, 58, 59, 66, 68) witho ut diffe renti ation . COMME NT: Slide scree laine keith combs due to rejec tion by the Thinp rep Imagi ng Syste m. CLINI [facility] INFOR MATIO N: Menst rual Statu s: LMP (if appli cable ): Clini [facility] Histo ry/Pr eviou s Pap: Type of Neopl aldo (if appli cable ): Signi fican t Clini stanton Findi ngs: Other Histo ry: Hormo nataly (if appli cable ): PAP EDUCA LUX L NOTE: The Pap Test is a scree sulma test with an inher ent false negat judy rate. Liqui d-bas ed sampl ing may decre ase, but will not elimi roberto carlos, false negat judy resul ts. A negat judy resul t does not precl ude the prese nce and/o r devel opmen t of disea se, since the prese nce of abnor mal cells in the sampl e depen ds on the locat ion of the lesio n and sampl ing techn ique. Sammi nued regul ar scree sulma is the best metho d of cance r preve ntion . If repor geni cytol ogic findi ng do not corre late with physi stanton and/o r histo rical findi ngs, furth er inves tigat ion is recom syed d, as clini nixon [place] nted. Not Available [facility] (Lab) [address], [place], [address], 09/21/2023 19:48:14 09/04/19 22 02/02/2021 MAMMO , scree sulma, bilat eral No observ ation record ed. [address] [place] [address], [address], 09/05/2021 12:25:19 05/18/20 22 05/18/2022 MAMMO , scree sulma, bilat eral No observ ation record ed. [address], [address], 05/26/2022 18:31:37 02/27/20 24 02/27/2024 MAMMO , scree sulma, bilat eral No observ ation record ed. [address], [address], 03/08/2024 14:10:42 10/05/19 25 10/04/2024 US, trans vagin al No observ ation record ed. [email or web address] [place] [address], [place], [address], 10/04/2024 13:42:15 10/05/19 25 10/04/2024 US, trans vagin al No observ ation record ed. [email or web address] [address], [place], [address], 10/17/2024 14:30:35 10/05/19 25 10/04/2024 US, trans vagin al No observ ation record ed. [email or web address] [address], [place], [address], 10/17/2024 14:30:34 10/05/19 25 10/04/2024 US, trans vagin al No observ ation record ed. DARCY [address], [place], [address], 10/17/2024 17:13:37 Result Notes None recorded. Problems Name Problem SNOMED Code Status Onset Date Resolution Date Notes Provider Name and Address Organization Details Recorded Time Reduced libido 0901632 Completed 201909/03/2021 Decreased libido;Re corded Elsewhere : No Locati on: [facility] So urce: EHR Chron ic: N Practic e ID: [id number] Bill able Time: 09:45:00 AM Lashell Martinez [facility] 2 11:32:[address] Concept Completed 201809/03/2021 Encntr for general adult medical exam w/o abnormal findings; Recorded Elsewhere : No Locati on: [facility] So urce: EHR Chron ic: N Practic e ID: [id number] Bill able Time: 10:00:00 AM Lashell Martinez [facility] 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 2 11:32:17 Screenin g for malignan t neoplasm of rectum Completed 201809/03/2021 Encounter for screening for malignant neoplasm of rectum;Pr actice ID: [id number] [facility] 2 11:32:17 Blood leukocyt e number above referenc e range [id number] Completed 201909/03/2021 Elevated white blood cell count, unspecifi ed;Practi ce ID: [id number] Lashell Martinez [facility] 2 11:32:17 Superfic ial pain on intercou rse [id number] Completed 201909/03/2021 Superfici al (introita l) dyspareun ia;Practi ce ID: [id number] [facility] 2 11:32:17 Problem Notes None recorded. Procedures Surgical History Date Name Laterality Status Provider Name and Address Organization Details Recorded Time 08/29/19 25 Other completed [facility] 10/03/2024 12:06:28 02/27/20 24 Date of Last Mammogram completed [facility] 10/03/2024 12:24:44 09/19/19 24 Date of Last Pap Smear completed [facility] 10/03/2024 12:06:39 08/05/19 24 Most Recent Bone Density completed [facility] 10/03/2024 12:06:27 05/02/20 23 Orthopedic Surgery completed Mayra Reza [facility] 09/17/2023 12:34:52 05/02/20 23 Orthopedic Surgery completed Mayra Cobb [facility] 09/17/2023 12:42:12 06/20/19 23 completed Mayra Cobb [facility] 09/17/2023 12:34:15 06/06/19 16 Colonoscopy completed [facility] 09/03/2021 11:44:47 08/05/19 15 completed [facility] 09/03/2021 11:55:00 08/05/19 15 Date of Last Colonoscopy completed [facility] 09/03/2021 11:55:00 08/18/18 87 Caesarean Section completed Danuta Clark [facility] 10/03/2024 12:06:28 08/04/18 87 section completed [facility] 09/03/2021 11:44:12 06/06/18 77 Hernia repair w/mesh completed [facility] 09/03/2021 11:44:35 Tubal Ligation completed [facility] 09/03/2021 11:44:23 Colonoscopy completed Cami Nguyen LEANN- [address], [place], [address], [facility] 09/14/2022 12:34:30 Caesarean Section completed [facility] 09/03/2021 11:55:11 Dilation and Curettage completed [facility] 09/03/2021 11:55:11 Tonsillectomy completed [facility] 09/03/2021 11:55:12 Imaging Results Imaging Date Name Status LastModified by Organization Details LastModified Time 02/02/2021 MAMMO, screening, bilateral completed [facility] [address], [place], [address], 09/05/2021 12:25:19 05/18/2022 MAMMO, screening, bilateral completed [facility] [address], [place], [address], 05/26/2022 18:31:37 02/27/2024 MAMMO, screening, bilateral completed [facility] [address], [place], [address], 03/08/2024 14:10:42 10/04/2024 US, transvaginal completed [email or web address] Charanjit e [address], [place], [address], 10/04/2024 13:42:15 10/04/2024 US, transvaginal completed [email or web address] [address], [place], [address], 10/17/2024 14:30:35 10/04/2024 US, transvaginal completed [email or web address] [address], [place], [address], 10/17/2024 14:30:34 10/04/2024 US, transvaginal completed DARCY [address], [place], [address], 10/17/2024 17:13:37 Procedure Notes None recorded. Medical Equipment None Reported. Allergies No known drug allergies Medications Name Sig Start Date Stop Date Status Note LastModified by Organization Details LastModified Time levothyro xine sodium 25 mcg tabs 09/03 completed Not Available Not Available Not Available osphena 60 mg tabs 08/07 completed Not Available Not Available Not Available pregabali n 150 mg caps 09/03 completed Not Available Not Available Not Available atorvasta tin calcium 20 mg tabs 08/07 completed Not Available Not Available Not Available cyclobenz aprine hydrochlo ride 10 mg tabs 09/03 completed Not Available Not Available Not Available duloxetin e hydrochlo ride 60 mg cpep 09/03 completed Not Available Not Available Not Available compounde d medicatio n APPLY 1/2 ML TO INNER ARMS DAILY active Not Available Not Available No t Available compounde d medicatio n APPLY 1/2 ML TO INNER ARMS DAILY 08/07 completed Not Available Not Available Not Available cyclobenz aprine 10 mg tablet TAKE 1 TABLET ORALLY THREE TIMES A DAY NEEDED FOR MUSCLE SPASM active Not Available Not Available No t Available atorvasta tin 40 mg tablet active Not Available Not Available Not Available atorvasta tin 20 mg tablet TAKE 1 TABLET BY MOUTH EVERY DAY 09/16 completed Not Available Not Available Not Available nabumeton e 750 mg tablet 09/16 completed Not Available Not Available Not Available clindamyc in HCl 300 mg capsule 08/07 completed Not Available Not Available Not Available atorvasta tin 10 mg tablet take 1 tablet by oral route every day 08/07 completed Prescrib ed [facility] e: Yes Loca tion: [facility]ify By: allyssa ruff DateTime : 06/12/19 10:00:00 AM Not Available Not Available Not Available Lidocaine Viscous 2 % mucosal solution TAKE 10 ML BY MOUTH (SWISH AND SPIT) 3 TIMES A DAY, NEEDED FOR SORE THROAT 09/14 completed Not Available Not Available Not Available benzonata te 200 mg capsule TAKE 1 CAPSULE BY MOUTH 3 TIMES A DAY FOR COUGH IF NEEDED 09/16 completed Not Available Not Available Not Available valacyclo vir 1 gram tablet TAKE 1 TABLET BY MOUTH EVERY 12 HOURS FOR 5 DAYS WITH FLARE UP NEEDED 2023 active Not Available Not Available Not Avai lable hydrocodo ne 5 mg-acetam inophen 325 mg tablet TAKE 1 TABLET BY MOUTH EVERY 6 HOURS NEEDED 09/16 completed Not Available Not Available Not Available tretinoin 0.025 % topical cream APPLY A FINGERTI P AMOUNT TO THE FACE AT BEDTIME active Not Available Not Available No t Available meloxicam 15 mg tablet TAKE 1 TABLET(1 5MG)BY ORAL ROUTE DAILY 09/03 completed Not Available Not Available Not Available hydroquin one 4 % topical cream PLEASE SEE ATTACHED FOR DETAILED DIRECTIO NS 10/02 completed Not Available Not Available Not Available alendrona te 70 mg tablet 09/16 completed Not Available Not Available Not Available rizatript an 10 mg tablet 09/16 completed Not Available Not Available Not Available diphenoxy late-atro pine 2.5 mg-0.025 mg tablet 2 TABLET ORALLY DAILY NEEDED FOR DIARRHEA 10/03 completed Not Available Not Available Not Available tretinoin 0.05 % topical cream APPLY A PEA SIZED DROP TO AFFECTED AREAS OF SKIN EVERY NIGHT 10/03 completed Not Available Not Available Not Available valacyclo vir 500 mg tablet TAKE 1 TABLET BY MOUTH TWICE A DAY 10/02 completed Not Available Not Available Not Available ciproflox acin 500 mg tablet TAKE 1 TABLET BY MOUTH TWICE A DAY FOR 7 DAYS 10/03 completed Not Available Not Available Not Available omeprazol e 40 mg capsule,d elayed release active Not Available Not Available Not Available butalbita l-acetami nophen-ca ffeine 50 mg-325 mg-40 mg tablet 08/07 completed Not Available Not Available Not Available levothyro xine 25 mcg tablet TAKE 1 TABLET BY MOUTH EVERY DAY active Not Available Not Available No t Available ketorolac 10 mg tablet 08/07 completed Not Available Not Available Not Available oxycodone -acetamin ophen 5 mg-325 mg tablet TAKE 1 TABLET BY MOUTH EVERY 4 HOURS FOR UP TO 10 DAYS NEEDED FOR PAIN 09/16 completed Not Available Not Available Not Available hydrocort isone 2.5 % topical cream with perineal applicato r APPLY A THIN LAYER TO THE AFFECTED AREA(S) BY TOPICAL ROUTE 2-4 TIMES DAILY NEEDED 09/14 completed Not Available Not Available Not Available dexametha sone 1 mg tablet TAKE 1 TABLET (1 MG TOTAL) BY MOUTH ONCE FOR 1 DOSE TAKE AT 11PM, HAVE LAB TEST AT 8:00AM 09/14 completed Not Available Not Available Not Available baclofen 10 mg tablet TAKE 1 TABLET BY MOUTH TWICE A DAY NEEDED FOR MUSCLE SPASMS 09/14 completed Not Available Not Available Not Available cephalexi n 500 mg capsule 08/07 completed Not Available Not Available Not Available nortripty line 10 mg capsule TAKE 1 CAPSULE BY MOUTH AT BEDTIME 09/14 completed Not Available Not Available Not Available butalbita l-aspirin -caffeine 50 mg-325 mg-40 mg capsule 08/07 completed Not Available Not Available Not Available monteluka st 10 mg tablet TAKE 1 TABLET BY MOUTH EVERY EVENING 09/16 completed Not Available Not Available Not Available mupirocin 2 % topical ointment 08/07 completed Not Available Not Available Not Available azelastin e 137 mcg (0.1 %) nasal spray USE 2 SPRAYS IN EACH NOSTRIL TWICE A DAY 09/16 completed Not Available Not Available Not Available methylpre dnisolone 4 mg tablets in a dose pack TAKE DIRECTED WITH FOOD 09/16 completed Not Available Not Available Not Available ipratropi um bromide 42 mcg (0.06 %) nasal spray TAKE 2 SPRAY(S) INTRANAS ALLY 3 TIMES A DAY 09/14 completed Not Available Not Available Not Available ondansetr on 4 mg disintegr ating tablet TAKE 1 TABLET BY MOUTH EVERY 8 HOURS NEEDED FOR NAUSEA AND VOMITING 10/03 completed Not Available Not Available Not Available fluticaso ne propionat e 50 mcg/actua tion nasal spray,ev pension INSTILL 1 SPRAY INTO EACH NOSTRIL EVERY DAY 09/16 completed Not Available Not Available Not Available dicyclomi ne 10 mg capsule TAKE 1 CAPSULE BY MOUTH 3 TIMES A DAY NEEDED FOR BOWEL URGENCY TAKE 1 HOUR BEFORE KNOWN TRIGGERS 09/14 completed Not Available Not Available Not Available rizatript an 5 mg tablet 09/16 completed Not Available Not Available Not Available oxycodone 5 mg tablet TAKE 1 TABLET BY MOUTH EVERY 6 HOURS NEEDED FOR PAIN 10/03 completed Not Available Not Available Not Available topiramat e 50 mg tablet 10/02 completed Not Available Not Available Not Available duloxetin e 20 mg capsule,d elayed release TAKE 1 CAPSULE BY MOUTH EVERY DAY 10/03 completed Not Available Not Available Not Available duloxetin e 30 mg capsule,d elayed release TAKE 1 CAPSULE BY MOUTH EVERY DAY 09/16 completed Not Available Not Available Not Available duloxetin e 60 mg capsule,d elayed release TAKE 1 CAPSULE BY MOUTH EVERY DAY WITH 30 MG TOTALLIN G 90 MG 10/02 completed Not Available Not Available Not Available tizanidin e 6 mg capsule 09/16 completed Not Available Not Available Not Available tizanidin e 4 mg capsule 09/16 completed Not Available Not Available Not Available pregabali n 25 mg capsule 1 TABLETS ORALLY ONCE A DAY X 7 DAYS THEN EVERY OTHER DAY X 7 DAYS THEN STOP 10/03 completed Not Available Not Available Not Available pregabali n 50 mg capsule TAKE 1 CAPSULE BY MOUTH EVERY DAY 10/03 completed Not Available Not Available Not Available pregabali n 75 mg capsule 75 MG ORALLY DAILY FOR 2 WEEKS 10/03 completed Not Available Not Available Not Available pregabali n 150 mg capsule 10/02 completed Not Available Not Available Not Available Vitamin D active Not Available Not Jennifer ilable Not Available nabumeton e 09/03 completed Not Available Not Available Not Available Cymbalta 09/16 completed Not Available Not Available Not Available Lyrica 10/02 completed Not Available Not Available Not Available testoster one 50 mg/5 gram (1 %) transderm al gel apply 5mg/day to inner arm 08/07 completed Prescrib ed Elsewher e: No Locat ion: [facility] By: karlos avitia DateTime : 07/26/19 09:45:00 AM Not Available Not Available Not Available Amrix 15 mg capsule,e xtended release take 1 capsule by oral route every day 08/07 completed Prescrib ed Elsewher e: Yes Loca tion: [facility] By: allyssa ruff DateTime : 06/12/19 10:00:00 AM Not Available Not Available Not Available Botox 200 unit injection 09/16 completed Not Available Not Available Not Available Tirosint 13 mcg capsule take 1 capsule by oral route every day 08/07 completed Prescrib ed Elsewher e: Yes Loca tion: [facility] By: allyssa tenauntedda DateTime : 06/12/19 10:00:00 AM Not Available Not Available Not Available Osphena 60 mg tablet TAKE 1 TABLET BY MOUTH DAILY 09/03 completed Not Available Not Available Not Available Viberzi 75 mg tablet TAKE 1 TABLET BY MOUTH TWICE A DAY MUST TAKE WITH MEAL/CATALINA D 09/14 completed Not Available Not Available Not Available abalopara tide 80 mcg/dose( 3,120 mcg/1.56 mL) subcutane ous pen injector Inject 80 microgra ms every day by sub-q route. 09/16 completed Not Available Not Available Not Available Acid Trim Master Operator (omeprazo le) 09/03 completed Not Available Not Available Not Available Lyrica CR 82.5 mg tablet,ex tended release take 1 tablet by oral route every day at the same time each day 08/07 completed Prescrib ed Hiral e: Yes Loca tion: [facility] Priscilla odpierre By: allyssa ruff DateTime : 06/12/19 10:00:00 AM Not Available Not Available Not Available cannabidi ol (CBD) oral edible 09/16 completed Not Available Not Available Not Available marijuana (cannabis ) oral edible active Not Available Not Available Not Available Ubrelvy 100 mg tablet 09/14 completed Not Available Not Available Not Available Qulipta 60 mg tablet 09/14 completed Not Available Not Available Not Available Vitals Date Recorded Body height Body mass index (BMI) Body weight Systolic blood pressure Diastolic blood pressure Provider Name and Address Organization Details Last Updated DateTime 09/03/2021 162.56 cm 23.7 kg/m2 10092.75 g 122 mm[Hg] 76 mm[Hg] Lashell Martinez [facility] 11:54:37 Date Recorded Body weight Systolic blood pressure Diastolic blood pressure Provider Name and Address Organization Details Last Updated DateTime 09/14/2022 80352.88 g 118 mm[Hg] 79 mm[Hg] Lashell Sanders [facility] 09/14/2022 12:25:15 Date Recorded Body height Body mass index (BMI) Body weight Systolic blood pressure Diastolic blood pressure Provider Name and Address Organization Details Last Updated DateTime 09/17/2023 162.56 cm 22 kg/m2 81310.82 g 135 mm[Hg] 87 mm[Hg] Mayra Cobb [facility] 4 12:33:57 Date Recorded Body height Body mass index (BMI) Body weight Systolic blood pressure Diastolic blood pressure Provider Name and Address Organization Details Last Updated DateTime 10/03/2024 162.56 cm 20.9 kg/m2 06037.55 g 142 mm[Hg] 88 mm[Hg] Danuta Clark [facility] 5 12:23:27 Social History Question Answer Notes LastModified by Organizat ion Details LastModified Time Tobacco Smoking Status Never Smoker Lashell Sanders xander, [facility] 09/14/2022 12:25:41 Do You Have An Advance Directive? No Information n ot available 09/03/2021 Are You Blind Or Do You Have Difficulty Seeing? No Information n ot available 09/03/2021 What Is Your Level Of Caffeine Consumption? Occasional Information not available 09/14/2022 How Much Tobacco Do You Chew? None Information not available 09/03/2021 In The 14 Days Before Symptom Onset, Have You Had Close Contact With A Laboratory-confirm ed COVID-19 While That Case Was Ill? No Information n ot available 09/03/2021 In The 14 Days Before Symptom Onset, Have You Had Close Contact With A Person Who Is Under Investigation For COVID-19 While That Person Was Ill? No Information not available 09/03/2021 Have You Been To An Area Known To Be High Risk For COVID-19? No Information not available 09/03/2021 Are You Deaf Or Do You Have Serious Difficulty Hearing? No Information not available 09/03/2021 What Type Of Diet Are You Following? REGULAR Information n ot available 09/03/2021 What Is The Highest Grade Or Level Of School You Have Completed Or The Highest Degree You Have Received? [id number] Information not available 09/03/2021 Are There Any Guns Present In Your Home? Yes [id number]|2024-10-19 10:09:00|2024-10-19 10:09:00|XMS_ITS|JACQUELINE LEWIS|External Medical Summaries|[id number]|" Encounter Summary Created on: October 19, 2024 Aniya Ann : 1965 Sex: Female Author Organization [facility] Address [address] [place] [address] Phone Care Team Providers Care Automotive Quality Manager Name Role Phone Dileep Reed DO Primary Care Provider [phone]- [phone] Encounter Details Date Type Department Care Team (Latest Contact Info) Description 05/02/2023 Orders Only OLIVO OS HAND/WRIST Scanning, Provider [...] feel afraid or unsafe? Denies 05/03/2023 Comments Unknown Sex and Gender Information Value Date Recorded Sex Assigned at Not on file Legal Sex Female 3:52 AM HEALTH COMMUNICATIONS SPECIALIST Gender Identity Female 05/24/2022 8:12 PM HEALTH COMMUNICATIONS SPECIALIST Sexual Orientation Straight 05/24/2022 8: 12 PM HEALTH COMMUNICATIONS SPECIALIST documented as of this encounter Functional Status * Audit-C Score Answer Date of Assessment Author 0 05/03/2023 11:36 AM HEALTH COMMUNICATIONS SPECIALIST Lyndsay Potter RN * Question Answer Date of Assessment Author Q1: How often do you have a drink containing alcohol? Never 05/03/2023 11:36 AM Lyndsay Zamora RN Q2: How many drinks containing alcohol do you have on a typical day when you are drinking? Patient does not drink 05/03/2023 11:36 AM Lyndsay Zamora RN Q3: How often do you have six or more drinks on one occasion? Never 05/03/2023 11:36 AM Lyndsay Zamora RN documented as of this encounter Plan of Treatment Not on file documented as of this encounter Procedures Procedure Name Priority Date/Time Associated Diagnosis Comments SCAN - RADIOLOGY/IMAGING 05/02/2023 documented in this encounter Results * SCAN - RADIOLOGY/IMAGING (05/02/2023) Anatomical Region Laterality Modality Other us Provider Scanning Final Result documented in this encounter Visit Diagnoses Not on filedocumented in this encounter Care Teams Automotive Quality Manager Relationship Specialty Start Date End Date Dileep Reed DO PCP - General Internal Medicine 09/22/21 documented as of this encounter "
== END 2024-10-19 09:57 | disposition home or self-care (01) ==
LOC: ANHIMG 10:00
PROVIDERS: PCP Nurse Practitioner; Visit Provider Student in an Organized Health Care Education/Training Program
DX: N64.4 Mastodynia (principal); R92.8 Other abnormal and inconclusive findings on diagnostic imaging of breast
CPT/HCPCS: 76642; 77061; 77065; G0279

== ENCOUNTER 2024-12-06 14:18 | Emergency (ER) | payer OTHER, SELFPAY ==
[2024-12-06] VITALS (7 sets, daily range): BP systolic 146–196; BP diastolic 102–130; PULSE 80–104; RESP 15–21; TEMP 36.1; O2SAT 96–100
--- NOTE | ~2024-12-06 | CT_ITS ---
CT brain wo con Ordering provider: Juana Jiménez PA-C History: 58 years Female with . temporal HAs . Comparison: August 21, 2015 Technique: CT of the head without contrast. Radiation reduction technique utilized.The dose-length pr oduct was 681 mGy-cm. FINDINGS: BRAIN PARENCHYMA AND CSF SPACES: No midline shift, mass effect or hemorrhage. The brain parenchyma a nd CSF spaces are otherwise normal. VISUALIZED PARANASAL SINUSES: Well aerated. MASTOIDS: Well aerated. BONES: The bones appear intact. SOFT TISSUES: Visualized nasopharynx is normal. Superficial soft tissues are normal. IMPRESSION: No acute intracranial findings. Reviewed, dictated and finalized at location A.
--- NOTE | ~2024-12-06 | XR_ITS ---
XR chest 2V Ordering provider: Adrian Henry MD History: 58 years Female with . chest heaviness . Comparison: September 19, 2017 FINDINGS: MEDIASTINUM: The cardiac silhouette is not enlarged. LUNGS: No infiltrates, effusions or pneumothorax. OTHER: No free air under the diaphragm. Dextroscoliosis with degenerative changes. IMPRESSION: No acute cardiopulmonary pathology. Reviewed, dictated and finalized at location A.
--- NOTE | 2024-12-06 14:22 | ECG_ITS ---
Test Date: 2024-12-06 14:32:16 Measurements Intervals [place] Rate: 86 P: 82 [place]: 116 QRS: -3 QRSD: 74 T: 43 QT: 358 QTc: 430 Interpretive Statements SINUS RHYTHM WITH SHORT [place] INTERVAL No previous ECG available for comparison Electronically Signed On 12-06-2024 16:52:38 CDT by Elpidio Salomon
--- OUTSIDE RECORDS SUMMARY | 2024-12-06 14:22 | XMS_ITS | Encounter Summary ---
Author Organization [facility] Address [address] [place] [address] Phone Care Team Providers Care Billing Manager Name Role Phone Tristian Reed DO Primary Care Provider [phone]- [phone] Encounter Details Date Type Department Care Team [...] on file Legal Sex Female 3:52 AM ACCOUNTING MANAGER Gender Identity Female 05/24/2022 8:12 PM ACCOUNTING MANAGER Sexual Orientation Straight 05/24/2022 8: 12 PM ACCOUNTING MANAGER documented as of this encounter Plan of Treatment Not on file documented as of this encounter Procedures Procedure Name Priority Date/Time Associated Diagnosis Comments SCAN - RADIOLOGY/IMAGING 07/25/2023 documented in this encounter Results * SCAN - RADIOLOGY/IMAGING (07/25/2023) Anatomical Region Laterality Modality Other us Provider Scanning Final Result documented in this encounter Visit Diagnoses Not on filedocumented in this encounter Care Teams Billing Manager Relationship Specialty Start Date End Date Tristian Reed DO PCP - General Internal Medicine 09/22/21 documented as of this encounter
--- OUTSIDE RECORDS SUMMARY | 2024-12-06 14:22 | XMS_ITS | Clinical Summary ---
Author Organization [facility] Address [address] [place] [address] Care Team Providers Care Household Appliance Assembler Name Role Phone Tristian Reed DO Primary Care Provider [phone] Encounters Date Type Department Care Team Description 10/22/2024 12:51 PM CDT - 10/22/2024 11:59 PM CDT Hospital Encounter [facility] [address] [place], [place] [id number] Gladys Barnes MD Discharge Disposition: Home or Self Care (Routine Discharge) 10/22/2024 Travel from Last 3 Months Social History Tobacco Use Types Packs/Day Years Used Date Smoking Tobacco: Never Assessed Comments Unknown Sex and Gender Information Value Date Recorded Sex Assigned at Female 10/22/2024 12:38 PM CDT Legal Sex Female 3:13 PM CDT Gender Identity Not on file Sexual Orientation Not on file Plan of Treatment Health Maintenance Due Date Last Done Comments Colorectal Cancer Screening Colonoscopy (10 Years) 1965 Annual Physical 12/09/1966 Hepatitis C 12/09/1981 DTaP, Tdap and Td Vaccines ( 1 - Tdap) 12/09/1982 Cervical Cancer Screening Pa p with HPV Testing (Age 30 to 64) Every 5 Years 12/09/1993 Mammogram Screening 2003 Pneumococcal Vaccine: 50+ Ye ars (1 of 1 - PCV) 12/09/2013 Zoster Vaccines (1 of 2) 12/09/2013 COVID-19 Vaccine (2023-2 5 season) 2024 Cervical Cancer Screening Pa p Smear (Age 30 to 64) Every 3 Years 09/18/2026 09/19/2023 Cervical Cancer Screening with HPV 09/18/2026 RSV Immunization or 60+ Years (1 - [...] this topic Medical Devices Implanted Type Area Traveling Sales Executive Device Identifier Shelf Expiration Date Model / Serial / Lot Right Renal Embolization Coil-08/28/2024 Implanted:Qty: 1 on 08/28/2024 Coil Right: [employer] ROLANDO EMBOLD COIL / / Description:MR CONDITIONAL A T 1.5 T OR 3 T, MAX SPATIAL GRADIENT FIELD OF 4000 GAUSS/CM OR LESS, MAX WHOLE BODY MITRA OF 2 W/KG OR LESS, HEAD MITRA 3.2 W/KG OR LESS Procedures Procedure Name Priority Date/Time Associated Diagnosis Comments MRI ABD WWO CON Routine 10/22/2024 2:53 PM CDT Angiomyolipoma of kidney from Last 3 Months Results * MRI ABD WWO CON (10/22/2024 2:53 PM CDT) Anatomical Region Laterality Modality Abdomen Magnetic Resonan ce 11/05/2024 8:30 AM CDT Impressions 11/05/2024 9:46 AM CDT Impression: 1. Right renal upper pole of the measuring 2.6 x 5.6 x 4.4 cm, stable and morphology and imaging characteristics compared to the outside comparison study from 03/23/2024. 2. Stable adjacent subcentimeter satellite angiomyolipoma. 3. No significant right renal cortical scarring or infarction. 4. Stable multiple hepatic benign lesions including 3 hemangiomas and benign cysts. 5. No new or acute findings. Ordered By: GLADYS BARNES Interpreted By: Natalya Mckeon MD, 11/05/2024 8:30 AM Narrative 11/05/2024 9:[address] [facility] [address] [place], [place] [address] Examination: MR abdomen without and with contrast. Exam date/time: 10/22/2024 2:17 PM Clinical Information:58-year-old female status post right renal angiomyolipoma transcatheter embolization on 08/28/2024 at outside institution Comparison: MR abdomen 03/23/2024 Technique: Sequences: Multiplanar, multisequence multiphase MR imaging of the abdomen performed before and following uneventful IV administration of 11 mL Dotarem contrast. Multiphase postcontrast images acquired along with post processed subtraction images. MR findings: LIVER: Morphology: Normal. Hepatic steatosis: Absent. Iron overload: None Focal liver lesion(s): There are multiple T2 hyperintense lesions redemonstrated in both lobes of liver. There are 3 of these are again as seen represent benign hemangiomas based on their enhancement characteristics. The larges of these in the lateral segment left hepatic lobe measures 3.0 x 3.6 cm. The 2 additional hemangiomas measure 1.5 cm in hepatic segment 4B and 1 cm in the posterior medial right hepatic lobe adjacent to the gallbladder.. Other T2 hyperintense lesion represent benign cysts the largest of which measures 2.4 cm. No concerning focal liver lesion.. An adjacent small 7 mm cortical angiomyolipoma is also unchanged. Otherwise stable normal size morphology and enhancement of both kidneys. No significant areas of renal cortical scarring or infarct noted. No additional focal lesions in either side. No collecting system obstruction or perinephric stranding Hepatic vasculature: Hepatic and portal veins are normally patent. GALLBLADDER AND BILIARY TREE: Unremarkable. No cholelithiasis or inflammation. No intra-axial hepatic biliary tree dilatation PANCREAS: Normal. No pancreatic ductal dilatation. SPLEEN: Normal. ADRENAL GLANDS: Normal. KIDNEYS: There is a right renal superior pole exophytic heterogeneous lesion containing macroscopic fat and demonstrating patchy heterogeneous enhancement compatible with an angiomyolipoma redemonstrated. This measures approximately 2.6 x 5.6 x 4.4 cm the unchanged significantly in size and imaging characteristics compared with the outside comparison study from 03/23/2024. . GASTROINTESTINAL: Imaged large and small bowel are normal in caliber and wall thickness. FREE FLUID: None. VASCULATURE: The abdominal aorta is normal in caliber. LYMPH NODES: No abdominal retroperitoneal or mesenteric lymphadenopathy. LOWER CHEST: Heart is normal in size. The lung bases are clear. No pleural or pericardial effusions. BONES: No suspicious osseous lesions. Procedure Note Natalya Mckeon MD - 11/05/2024 [facility] [address] [place], [place] [address] Examination: MR abdomen without and with contrast. Exam date/time: 10/22/2024 2:17 PM Clinical Information:58-year-old female status post right renalangiomyolipoma transcatheter embolization on 08/28/2024 at outsideinstitution Comparison: MR abdomen 03/23/2024 Technique: Sequences: Multiplanar, multisequence multiphase MR imaging of the abdomenperformed before and following uneventful IV administration of 11 mLDotarem contrast. Multiphase postcontrast images acquired along with postprocessed subtraction images. MR findings: LIVER: Morphology: Normal. Hepatic steatosis: Absent. Iron overload: None Focal liver lesion(s): There are multiple T2 hyperintense lesionsredemonstrated in both lobes of liver. There are 3 of these are again asseen represent benign hemangiomas based on their enhancementcharacteristics. The larges of these in the lateral segment left hepaticlobe measures 3.0 x 3.6 cm. The 2 additional hemangiomas measure 1.5 cm in hepatic segment 4B and 1 cmin the posterior medial right hepatic lobe adjacent to the gallbladder..Other T2 hyperintense lesion represent benign cysts the largest of whichmeasures 2.4 cm. No concerning focal liver lesion.. An adjacent small 7 mm cortical angiomyolipoma is also unchanged. Otherwise stable normal size morphology and enhancement of both kidneys.No significant areas of renal cortical scarring or infarct noted. No additional focal lesions in either side. No collecting systemobstruction or perinephric stranding Hepatic vasculature: Hepatic and portal veins are normally patent. GALLBLADDER AND BILIARY TREE: Unremarkable. No cholelithiasis orinflammation. No intra-axial hepatic biliary tree dilatation PANCREAS: Normal. No pancreatic ductal dilatation. SPLEEN: Normal. ADRENAL GLANDS: Normal. KIDNEYS: There is a right renal superior pole exophytic heterogeneous lesioncontaining macroscopic fat and demonstrating patchy heterogeneousenhancement compatible with an angiomyolipoma redemonstrated. Thismeasures approximately 2.6 x 5.6 x 4.4 cm the unchanged significantly insize and imaging characteristics compared with the outside comparisonstudy from 03/23/2024. . GASTROINTESTINAL: Imaged large and small bowel are normal in caliber andwall thickness. FREE FLUID: None. VASCULATURE: The abdominal aorta is normal in caliber. LYMPH NODES: No abdominal retroperitoneal or mesenteric lymphadenopathy. LOWER CHEST: Heart is normal in size. The lung bases are clear. No pleuralor pericardial effusions. BONES: No suspicious osseous lesions. Impression: 1. Right renal upper pole of the measuring 2.6 x 5.6 x 4.4 cm, stable andmorphology and imaging characteristics compared to the outside comparisonstudy from 03/23/2024. 2. Stable adjacent subcentimeter satellite angiomyolipoma. 3. No significant right renal cortical scarring or infarction. 4. Stable multiple hepatic benign lesions including 3 hemangiomas andbenign cysts. 5. No new or acute findings. Ordered By: GLADYS BARNES Interpreted By: Natalya Mckeon MD, 11/05/2024 8:30 AM Gladys Barnes MD MRI Final Result from Last 3 Months Insurance Care Teams Household Appliance Assembler Relationship Specialty Start Date End Date Tristian Reed DO [address] [facility] [address] [place] [address] PCP - General INTERNAL MEDICINE 10/22/24
--- OUTSIDE RECORDS SUMMARY | 2024-12-06 14:22 | XMS_ITS | Clinical Summary ---
Author Organization [facility] Address [facility] [place] [address] Care Team Providers Care Repairer Maintenance Building Name Role Phone Tristian Reed DO Primary Care Provider +1- [phone] Allergies No known active allergies Medications levothyroxine (SYNTHROID) 25 mcg tablet levothyroxine 25 [...] Botox 200 unit recon soln 023 Active cyclobenzaprine (FLEXERIL) 10 mg tablet Take 1 tablet (10 mg total) by mouth 3 (three) times a day as needed for muscle spasms Active naratriptan (AMERGE) 2.5 mg tabletIndicatio ns:Migraine Take 1 tablet (2.5 mg total) by mouth once as needed for migraine May repeat in 4 hours if unresolved. Do not exceed 5 mg in 24 hours. 9 tablet 3 025 2025 Active duloxetine HCl (DULOXETINE ORAL) Take 20 mg by mouth Active pen needle, diabetic (Pen Needle) 31 gauge x 5/16 needle Use as directed once a day 100 each 1 023 2024 Discontinued abaloparatide (Tymlos) 80 mcg (3,120 mcg/1.56 mL) pen injectorIndicat ions:Age-relate d osteoporosis without current pathological fracture 0.04 mL (80 mcg total) by abdominal subcutaneous route daily 1.2 mL 1 025 2024 Discontinued Hospital, Clinic, or Other Facility Administered Medication Ordered Dose Route Frequency Start Date End Date Status onabotulinumtoxin A (BOTOX) 200 unit injection 200 UnitsIndications:Intr actable chronic migraine without aura and without status migrainosus 200 Units OTHER Once for Clinic-Administere d Medication 10/25/2024 Active onabotulinumtoxin A (BOTOX) 200 unit injection 200 UnitsIndications:Intr actable chronic migraine without aura and without status migrainosus 200 Units OTHER Once for Clinic-Administere d Medication 01/24/2025 Active Active Problems Problem Noted Date Diagnosed [...] Closed fracture of right distal radius 3 Intractable chronic migraine without aura and without status migrainosus 08/12/2022 Assessment & Plan (08/28/2024 12:59 PM CDT): - uses botox injections in outpatient setting Chronic neck pain 08/12/2022 Osteoporosis 12/06/2021 Assessment & Plan (08/28/2024 12:59 PM CDT): - hold outpatient injections Reduced libido 07/25/2019 Overview (05/02/2023): Decreased libido;Recorded Elsewhere: No Location: [facility] Source: EHR Chronic: N Practice ID: [id number] Billable Time: 09:45:00 AM Superficial dyspareunia 07/25/2019 Overview (05/02/2023): Superficial (introital) dyspareunia;Practice ID: [id number] Leukocytosis 07/25/2019 Overview (05/02/2023): Elevated white blood cell count, unspecified;Practice ID: [id number] High blood leukocyte count 07/25/2019 Overview (11/12/2024): Elevated white blood cell count, unspecified;Practice ID: [id number] Encounters Date Type Department Care Team Description 12/03/2024 1:40 PM CDT Lab [facility] [address] [place] [address] Muscle weakness 12/03/2024 10:00 AM CDT Office Visit [facility] Neuro Muscle [address] [facility] 6th [place] [address] [place] [address] Erick Madrid MD Muscle weakness (Primary Dx) 11/12/2024 12:00 PM CDT Office Visit [facility] Radiology, Interventional Radiology [address] [facility] [address] [place] [address] Weston Barnes MD Angiomyolipoma (Primary Dx) 11/09/2024 Orders Only [facility] General Neurology [address] [place] [address] Sherry Cruz Intractable chronic migraine without aura and without status migrainosus (Primary Dx) 11/07/2024 Orders Only [facility] General Neurology [address] [facility] 6[address] [place] [address] Annmarie Holloway PA Generalized muscle weakness (Primary Dx); Muscle weakness 10/25/2024 2:30 PM CDT Procedure visit [facility] General Neurology [address] [place] [address] Cheng Stanley MD Intractable chronic migraine without aura and without status migrainosus (Primary Dx) 10/23/2024 9:49 PM CDT - 10/23/2024 11:59 PM CDT Hospital Encounter [facility] [address] [place] [address] Discharge Disposition: Discharge to home or self care 10/23/2024 3:30 PM CDT Office Visit [facility] General Neurology [address] [facility] 6th [address] [place] [address] Annmarie Holloway PA Muscle weakness (Primary Dx); Intractable chronic migraine without aura and without status migrainosus 10/12/2024 Telephone [facility] Scheduling [address] [place] [address] Everton De Santiago MD from Last 3 Months Surgical History Surgery [...] on file Legal Sex Female 3:52 AM COPS Gender Identity Female 05/24/2022 8:12 PM COPS Sexual Orientation Straight 05/24/2022 8: 12 PM COPS Obstetrics History Last Filed Vital Signs Vital Sign Reading Time Taken Comments Blood Pressure 133/86 12/03/2024 9:46 AM CDT Pulse 94 12/03/2024 9:46 AM CDT Temperature 36.9 C (98.4 F) 10/25/2024 2:20 PM CDT Respiratory Rate 18 08/29/2024 8:05 AM CDT Oxygen Saturation 98% 10/25/2024 2:20 PM CDT Inhaled Oxygen Concentration - - Weight 52.2 kg (115 lb) 12/03/2024 9:46 AM CDT Height 165.1 cm (5' 5) 12/03/2024 9:46 AM CDT Body Mass Index 19.14 12/03/2024 9:46 AM CDT Plan of Treatment Health Maintenance Due Date Last Done Comments Cervical Cancer Screening 1965 Colon Cancer Screening-Colonoscopy 1965 Depression Screening 1965 Hepatitis C Screening 1965 DTaP/Tdap/Td Vaccine (1 - Tdap) 12/09/1974 Hepatitis B Screening 12/09/1981 Regular Well Visit/Exam 18-64 12/09/1981 Zoster Vaccine (1 of 2) 12/09/2013 Influenza Vaccine (#1) 2025 Breast Cancer Screening-Mammogram 02/26/2025 02/27/2024, 05/18/2022, 09/03/2021, Additional history exists Pneumococcal vaccine <65 Aged Out No longer eligible based on patient's age to complete this topic Medical Devices Implanted Type Area Associate Pathologist Device Identifier Shelf Expiration Date Model / Serial / Lot Shi & Nephew/Richco/Or tho Plate Std 48mm 3 Hole Evos Bone Radial Right Distal Volar [id number] - [id number] Implanted:Qty: 1 on 05/03/2023 by Cheng Ferrera MD at [facility] Right: Radius [employer]Richco/Or tho [id number] / / [employer]hew/Richco/Or tho Evos Mini 2mm 3.3mm 10mm Lock Resort Housekeeper Long Bone Small Bone T6 [id number] - [id number] Implanted:Qty: 1 on 05/03/2023 by Cheng Ferrera MD at [facility] Right: Radius [employer]hew/Richco/Or tho [id number] / / [employer]hew/Richco/Or tho Evos Mini 30w1-59.3x1.2mm 71mm 3 Hole Head 5 Hole Shaft Variable [id number] - [id number] Implanted:Qty: 1 on 05/03/2023 by Cheng Ferrera MD at [facility] Right: Radius [employer]/Richco/Or tho [id number] / / [employer]hew/Richco/Or tho Evos Mini 2mm 3.3mm 20mm Lock Long Bone Small Bone T6 Screw Bone [id number] - [id number] Implanted:Qty: 1 on 05/03/2023 by Cheng Ferrera MD at [facility] Right: Radius [employer]hew/Richco/Or tho [id number] / / [employer]hew/Richco/Or tho Evos Mini 2.4mm 3.8mm 12mm Self Tap Resort Housekeeper Long Bone Small Bone [id number] - [id number] Implanted:Qty: 2 on 05/03/2023 by Cheng Ferrera MD at [facility] Right: Radius [employer]hew/Richco/Or tho [id number] / / [employer]hew/Richco/Or tho 2.4mm 3.8mm 10mm Self Retaining Screwdriver Self Tap Flat Head [id number] - [id number] Implanted:Qty: 1 on 05/03/2023 by Cheng Ferrera MD at [facility] Right: Radius [employer]/Richco/Or tho [id number] / / [employer]hew/Richco/Or tho Evos Mini 2.4mm 3.8mm 14mm Lock Long Bone Small Bone T7 Screw [id number] - [id number] Implanted:Qty: 2 on 05/03/2023 by Cheng Ferrera MD at [facility] Right: Radius [employer]hew/Richco/Or tho [id number] / / [employer]hew/Richco/Or tho Evos Mini 2.4mm 3.8mm 17mm Lock Long Bone Small Bone T7 Screw [id number] - [id number] Implanted:Qty: 1 on 05/03/2023 by Cheng Ferrera MD at [facility] Right: Radius [employer]hew/Richco/Or tho [id number] / / Shi [employer] Nephew/Richco/Or tho Evos Mini 2.4mm 3.8mm 18mm Lock Resort Housekeeper Long Bone Small Bone T7 [id number] - [id number] Implanted:Qty: 1 on 05/03/2023 by Cheng Ferrera MD at [facility] Right: Radius [employer]hew/Richco/Or tho [id number] / / Shi & Nephew/Richco/Or tho 2mm 3mm 22mm Self Retaining Screwdriver Self Tap Flat Head Cortex [id number] - [id number] Implanted:Qty: 1 on 05/03/2023 by Cheng Ferrera MD at [facility] Right: Radius [employer]hew/Richco/Or tho [id number] / / Shi & Nephew/Richco/Or tho 2mm 3mm 14mm Self Retaining Screwdriver Self Tap Flat Head Cortex [id number] - [id number] Implanted:Qty: 1 on 05/03/2023 by Cheng Ferrera MD at [facility] Right: Radius [employer]hew/Richco/Or tho [id number] / / Hsi & Nephew/Richco/Or tho Evos Mini 2mm 3.3mm 13mm Lock Long Bone Small Bone T6 Screw Bone [id number] - [id number] Implanted:Qty: 1 on 05/03/2023 by Cheng Ferrera MD at [facility] Right: Radius [employer] Nephew/Richco/Or tho [id number] / / [employer] Embosphere Prefill Saline Syringe Compressible Nonaggregate [id number] - [id number] Implanted:Qty: 1 on 08/28/2024 at [facility] 04/07/2027 [id number] / / [id number] [employer] Thanh Coil Emolization Coated Detachable Wainwright Tungsten Embold 1lkh2ht [id number] - [id number] Implanted:Qty: 1 on 08/28/2024 at [facility] [employer] Thanh 10/26/2026 [id number] / / [id number] [employer] Angio-Seal Vip 6fr Closere Device [id number] - [id number] Implanted:Qty: 1 on 08/28/2024 at [facility] [employer] 03/30/2025 [id number] / / [id number] Explanted Type Area Associate Pathologist Device Identifier Shelf Expiration Date Model / Serial / Lot Microaire [employer] Olga .062in 4in [place] Both Ends Orthopedic Wire [id number] - [id number] Explanted:Qty: 1 on 05/03/2023 at [facility] Right: Radius [employer] [id number] / / [employer] Olga .045in 4in 2 [place] End No Thread Standard Wire [id number] - [id number] Explanted:Qty: 2 on 05/03/2023 at [facility] Right: Radius [employer] [id number] / / Procedures Procedure Name Priority Date/Time Associated Diagnosis Comments CREATINE KINASE (CK), TOTAL Routine 12/03/2024 12:17 PM CDT Muscle weakness METHYLMALONIC ACID, SERUM Routine 12/03/2024 12:17 PM CDT Muscle weakness COPPER, SERUM Routine 12/03/2024 12:17 PM CDT Muscle weakness VITAMIN B12 Routine 12/03/2024 12:17 PM CDT Muscle weakness MR BODY OUTSIDE REFERENCE Routine 10/23/2024 9:49 PM CDT from Last 3 Months Results * (ABNORMAL) Methylmalonic acid, serum (12/03/2024 12:17 PM CDT) MMA 0.44(H) <=0.40 nmol/mL [facility] ref [facility] Comment: In this sample, the concentration of methylmalonic acid (MMA) was minimally elevated. As the upper limit of the reference range varies in different laboratories from 0.4 to 0.6 nmol/mL. This finding could be considered normal, especially if the patient does not show other signs of vitamin B12 deficiency. ADDITIONAL INFORMATION This test was developed and its performance characteristics determined by [facility] in a manner consistent with CLIA requirements. This test has not been cleared or approved by the U.S. Food and Drug Administration. Test Performed by: [facility] [place] [address] Finisher Brush: Miguel Martínez Ph.D.; CLIA# [id number] Blood 12/03/2024 12:1 7 PM CDT 12/03/2024 3:03 PM CDT Erick Madrid MD LAB BLOOD ORDERABLES [facility] al Result [facility] [place] [address] [place] ref Lab * Copper, serum (12/03/2024 12:17 PM CDT) Pathologist [facility] Copper 127 77 - 206 mcg/dL [facility] ref Lab Comment: ADDITIONAL INFORMATION This test was developed and its performance characteristics determined by [facility] in a manner consistent with CLIA requirements. This test has not been cleared or approved by the U.S. Food and Drug Administration. Test Performed by: [facility] [address] [place] [address] Finisher Brush: Miguel Martínez Ph.D.; CLIA# [id number] Blood 12/03/2024 12:1 7 PM CDT 12/03/2024 12:42 PM CDT Erick Madrid MD LAB BLOOD ORDERABLES Fin al Result Performing Organization Address [facility] de Phone Number [facility] [place] [address] [facility] ref [facility] * Vitamin B12 (12/03/2024 12:17 PM CDT) Vitamin B12 460 230 - 1,250 pg/mL Blood 12/03/2024 12:1 7 PM CDT 12/03/2024 12:37 PM CDT Erick Madrid MD LAB BLOOD ORDERABLES Fin al Result Performing Organization Address [facility] de Phone Number [facility] [place] [address] * Creatine kinase (CK), total (12/03/2024 12:17 PM CDT) CK 164 30 - 200 Units/L Blood 12/03/2024 12:1 7 PM CDT 12/03/2024 12:37 PM CDT Erick Madrid MD LAB BLOOD ORDERABLES Fin al Result Performing Organization Address [facility] de Phone Number [facility] [place] [address] * MR Body Outside Reference (10/23/2024 9:49 PM CDT) Impressions [facility]_PACS_[facility] - 10/23/2024 9:49 PM CDT These images are for Reference purposes only and have not been reviewed by [facility] Radiology. There will be no report generated by a [facility] Radiologist. Narrative RAD_PACS_[facility] - 10/23/2024 9:49 PM CDT EXAMINATION: Images For Reference Purposes Only Weston Barnes MD IMG MRI PROCEDURES Final R esult [facility] from Last 3 Months Insurance [facility] CHOICE PLUS MEDICARE [facility] CHOICE PLUS [facility] CHOICE PLUS MEDICARE Advance Directives For more information, please contact: [phone] * Full Code (Latest Code Status on File) Date Activated Date Inactivated Comments 08/28/2024 8:12 AM 08/29/2024 3:34 PM Care Teams Repairer Maintenance Building Relationship Specialty Start Date End Date Tristian Reed DO PCP - General Internal Medicine 09/22/21
--- OUTSIDE RECORDS SUMMARY | 2024-12-06 14:22 | XMS_ITS | Encounter Summary ---
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 DELIVERY DRIVER Gender Identity Female 05/24/2022 8:12 PM WAREHOUSE DELIVERY DRIVER Sexual Orientation Straight 05/24/2022 8: 12 PM WAREHOUSE DELIVERY DRIVER documented as of this encounter Plan of Treatment Not on file documented as of this encounter Procedures Procedure Name Priority Date/Time Associated Diagnosis Comments SCAN - RADIOLOGY/IMAGING 10/08/2022 documented in this encounter Results * SCAN - RADIOLOGY/IMAGING (10/08/2022) Anatomical Region Laterality Modality Other us Provider Scanning Final Result documented in this encounter Visit Diagnoses Not on filedocumented in this encounter Care Teams Biofuels Engineering Manager Relationship Specialty Start Date End Date Tristian Reed, DO PCP - General Internal Medicine 09/22/21 documented as of this encounter
--- OUTSIDE RECORDS SUMMARY | 2024-12-06 14:22 | XMS_ITS | Encounter Summary ---
Author Organization [facility] Address [address] [place] [address] Phone Care Team Providers Care Manager Location Name Role Phone Tristian Reed DO Primary Care Provider +1- [phone] Encounter Details Date Type Department Care Team [...] on file Legal Sex Female 3:52 AM ASSISTANT PUBLIC DEFENDER Gender Identity Female 05/24/2022 8:12 PM ASSISTANT PUBLIC DEFENDER Sexual Orientation Straight 05/24/2022 8: 12 PM ASSISTANT PUBLIC DEFENDER documented as of this encounter Plan of Treatment Not on file documented as of this encounter Procedures Procedure Name Priority Date/Time Associated Diagnosis Comments SCAN - RADIOLOGY/IMAGING 06/13/2023 documented in this encounter Results * SCAN - RADIOLOGY/IMAGING (06/13/2023) Anatomical Region Laterality Modality Other us Provider Scanning Final Result documented in this encounter Visit Diagnoses Not on filedocumented in this encounter Care Teams Manager Location Relationship Specialty Start Date End Date Tristian Reed DO PCP - General Internal Medicine 09/22/21 documented as of this encounter
--- OUTSIDE RECORDS SUMMARY | 2024-12-06 14:22 | XMS_ITS | Encounter Summary ---
Author Organization [facility] Address [address] [place] [address] Phone Care Team Providers Care Scholarship Counselor Name Role Phone Tristian Reed DO Primary Care Provider +1- [phone] Encounter Details Date Type Department Care Team [...] on file Legal Sex Female 3:52 AM SQL TECH Gender Identity Female 05/24/2022 8:12 PM SQL TECH Sexual Orientation Straight 05/24/2022 8: 12 PM SQL TECH documented as of this encounter Functional Status * Audit-C Score Answer Date of Assessment Author 0 05/03/2023 11:36 AM SQL TECH Lyndsay Potter RN * Question Answer Date of Assessment Author Q1: How often do you have a drink containing alcohol? Never 05/03/2023 11:36 AM SQL TECH Lyndsay Potter RN Q2: How many drinks containing alcohol [...] on filedocumented in this encounter Care Teams Scholarship Counselor Relationship Specialty Start Date End Date Tristian Reed DO PCP - General Internal Medicine 09/22/21 documented as of this encounter
--- OUTSIDE RECORDS SUMMARY | 2024-12-06 14:22 | XMS_ITS | Referral Summary ---
Author Organization [facility] Address [address] [place] [address] Care Team Providers Care Developmental Specialist Name Role Phone Tristian Reed DO Primary Care Provider [phone]- [phone] Encounters Date Type Department Care Team Description 12/03/2024 1:40 PM CDT Lab [facility] ([facility]) [address] [place] [id number] Muscle weakness 12/03/2024 10:00 AM CDT Office Visit [facility] Neuro Muscle [address] 6th [place] [address] [place] [phone] Erick Madrid MD Muscle weakness (Primary Dx) 11/12/2024 12:00 PM CDT Office Visit [facility] Radiology, Interventional Radiology [address] [address] [place] [phone] Weston Barnes MD Angiomyolipoma (Primary Dx) 11/09/2024 Orders Only [facility] General Neurology [address] [facility] [address] [facility] [address] [place] [phone] Sherry Cruz Intractable chronic migraine without aura and without status migrainosus (Primary Dx) 11/07/2024 Orders Only [facility] General Neurology [address] [facility] [address] [place] [phone] Annmarie Holloway PA Generalized muscle weakness (Primary Dx); Muscle weakness 10/25/2024 2:30 PM CDT Procedure visit [facility] General Neurology [address] [facility] [address] [place] [phone] Cheng Stanley MD Intractable chronic migraine without aura and without status migrainosus (Primary Dx) 10/23/2024 9:49 PM CDT - 10/23/2024 11:59 PM CDT Hospital Encounter [facility] [address] [place] [address] Discharge Disposition: Discharge to home or self care 10/23/2024 3:30 PM CDT Office Visit [facility] General Neurology [address] [facility] [address] [place] [phone] Annmarie Holloway PA Muscle weakness (Primary Dx); Intractable chronic migraine without aura and without status migrainosus 10/12/2024 Telephone [facility] Scheduling [address] [place] [address] Everton De Santiago MD from Last 3 Months Allergies No known active allergies Medications levothyroxine [...] Overview (05/02/2023): Decreased libido;Recorded Elsewhere: No Location: [facility] Source: EHR Chronic: N Practice ID: [...] on file Legal 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 Gender Identity Female 05/24/2022 8:12 PM CUSTOMER SERVICE CASHIER Sexual Orientation Straight 05/24/2022 8: 12 PM CUSTOMER SERVICE CASHIER Last Filed Vital Signs Vital Sign Reading [...] 12/03/2024 9:46 AM CDT Plan of Treatment Not on file Medical Devices Implanted Type Area A/C Technician Device Identifier Shelf Expiration Date Model / Serial / Lot [employer]Rich[employer]/Or tho Plate Std 48mm 3 Hole Evos Bone Radial Right Distal Volar [id number] - [id number] Implanted:Qty: 1 on 05/03/2023 by Cheng Ferrera MD at [facility] Right: Radius [employer]/Or tho [id number] / / [employer]Rich[employer]/Or tho Evos Mini 2mm 3.3mm 10mm Lock Ticket Sales Supervisor Long Bone Small Bone T6 [id number] - [id number] Implanted:Qty: 1 on 05/03/2023 by Cheng Ferrera MD at [facility] Right: Radius [employer]Rich[employer]/Or tho [id number] / / [employer]Rich[employer]/Or tho Evos Mini 39h7-15.3x1.2mm 71mm 3 Hole Head 5 Hole Shaft Variable [id number] - [id number] Implanted:Qty: 1 on 05/03/2023 by Cheng Ferrera MD at [facility] Right: Radius [employer]/Or tho [id number] / / [employer]/Or tho Evos Mini 2mm 3.3mm 20mm Lock Long Bone Small Bone T6 Screw Bone [id number] - [id number] Implanted:Qty: 1 on 05/03/2023 by Cheng Ferrera MD at [facility] Right: Radius [employer]/Or tho [id number] / / [employer]/Or tho Evos Mini 2.4mm 3.8mm 12mm Self Tap Ticket Sales Supervisor Long Bone Small Bone [id number] - [id number] Implanted:Qty: 2 on 05/03/2023 by Cheng Ferrera MD at [facility] Right: Radius [employer]/Or tho [id number] / / [employer]/Or tho 2.4mm 3.8mm 10mm Self Retaining Screwdriver Self Tap Flat Head [id number] - [id number] Implanted:Qty: 1 on 05/03/2023 by Cheng Ferrera MD at [facility] Right: Radius [employer]/Or tho [id number] / / [employer]/Or tho Evos Mini 2.4mm 3.8mm 14mm Lock Long Bone Small Bone T7 Screw [id number] - [id number] Implanted:Qty: 2 on 05/03/2023 by Cheng Ferrera MD at [facility] Right: Radius [employer]/Or tho [id number] / / [employer]/Or tho Evos Mini 2.4mm 3.8mm 17mm Lock Long Bone Small Bone T7 Screw [id number] - [id number] Implanted:Qty: 1 on 05/03/2023 by Cheng Ferrera MD at [facility] Right: Radius Sih [employer] Nephew/Richco/Or tho [id number] / / [employer]/Or tho Evos Mini 2.4mm 3.8mm 18mm Lock Ticket Sales Supervisor Long Bone Small Bone T7 [id number] - [id number] Implanted:Qty: 1 on 05/03/2023 by Cheng Ferrera MD at [facility] Right: Radius [employer]Rich[employer]/Or tho [id number] / / [employer]Rich[employer]/Or tho 2mm 3mm 22mm Self Retaining Screwdriver Self Tap Flat Head Cortex [id number] - [id number] Implanted:Qty: 1 on 05/03/2023 by Cheng Ferrera MD at [facility] Right: Radius [employer]/Or tho [id number] / / [employer]Rich[employer]/Or tho 2mm 3mm 14mm Self Retaining Screwdriver Self Tap Flat Head Cortex [id number] - [id number] Implanted:Qty: 1 on 05/03/2023 by Cheng Ferrera MD at [facility] Right: Radius [employer]Rich[employer]/Or tho [id number] / / [employer]hew[employer]Rich[employer]/Or tho Evos Mini 2mm 3.3mm 13mm Lock Long Bone Small Bone T6 Screw Bone [id number] - [id number] Implanted:Qty: 1 on 05/03/2023 by Cheng Ferrera MD at [facility] Right: Radius [employer]Rich[employer]/Or tho [id number] / / [employer] Embosphere Prefill Saline Syringe Compressible Nonaggregate S420gh - [id number] Implanted:Qty: 1 on 08/28/2024 at [facility] [employer] 04/07/2027 [id number] / / [id number] [employer] Thanh Coil Emolization Coated Detachable Little Traverse Tungsten Embold 5wnh6rm [id number] - [id number] Implanted:Qty: 1 on 08/28/2024 at [facility] [employer] Thanh 10/26/2026 [id number] / / [id number] [employer] Angio-Seal Vip 6fr Closere Device [id number] - [id number] Implanted:Qty: 1 on 08/28/2024 at [facility] [employer] 03/30/2025 [id number] / / [id number] Explanted Type Area A/C Technician Device Identifier Shelf Expiration Date Model / Serial / Lot [employer] Olga .062in 4in Trocar Point Both Ends Orthopedic Wire 0714-462ns - [id number] Explanted:Qty: 1 on 05/03/2023 at [facility] Right: Radius [employer] [id number] / / [employer] Olga .045in 4in 2 [place] End No Thread Standard Wire 1600-199 - [id number] Explanted:Qty: 2 on 05/03/2023 at [facility] Right: Radius [employer] 1600-420 / / Procedures Procedure Name Priority Date/Time [...] its performance characteristics determined by [facility] in a manner consistent with CLIA requirements. This test has not been cleared or approved by the U.S. Food and Drug Administration. Test Performed by: [facility] - [address] [address] Hvac Service Technician: Miguel Martínez Ph.D.; CLIA# [id number] Blood 12/03/2024 12:1 7 PM CDT 12/03/2024 3:03 PM CDT us Erick Madrid MD LAB BLOOD ORDERABLES Fin al Result Performing Organization Address City/[facility] Co de Phone Number [facility] [place] [address] [facility] * Copper, serum (12/03/2024 12:17 PM CDT) Pathologist [facility] Copper 127 77 - 206 mcg/dL [facility] Comment: ADDITIONAL INFORMATION This test was developed and its performance characteristics determined by [facility] in a manner consistent with CLIA requirements. This test has not been cleared or approved by the U.S. Food and Drug Administration. Test Performed by: [place] [address] Hvac Service Technician: Miguel Martínez Ph.D.; CLIA# [id number] Blood 12/03/2024 12:1 7 PM CDT 12/03/2024 12:42 PM CDT Erick Madrid MD LAB BLOOD ORDERABLES Fin al Result Performing Organization Address [facility] Co de Phone Number [facility] [place] [address] [facility] * Vitamin B12 (12/03/2024 12:17 PM CDT) Pathologist [facility] Vitamin B12 460 230 - 1,250 pg/mL Blood 12/03/2024 12:1 7 PM CDT 12/03/2024 12:37 PM CDT Erick Madrid MD LAB BLOOD ORDERABLES Fin al Result Performing Organization Address City/[facility] Co de Phone Number [facility] [place] [address] * Creatine kinase (CK), total (12/03/2024 12:17 PM CDT) CK 164 30 - 200 Units/L Blood 12/03/2024 12:1 7 PM CDT 12/03/2024 12:37 PM CDT us Erick Madrid MD LAB BLOOD ORDERABLES Fin al Result Performing Organization Address City/[facility] Co de Phone Number LYLE [facility] Department [place] [address] * MR Body Outside Reference (10/23/2024 9:49 PM CDT) Impressions RAD_PACS_[facility] - 10/23/2024 9:49 PM CDT These images are for Reference purposes only and have not been reviewed by [facility] Radiology. There will be no report generated by a [facility] Radiologist. Narrative [facility] - 10/23/2024 9:49 PM CDT EXAMINATION: Images For Reference Purposes Only us Weston Barnes MD IMG MRI PROCEDURES Final R esult Performing Organization Address [facility] Co de Phone Number RAD_PACS_[facility] from Last 3 Months Insurance [facility] Advance Directives For more information, please contact: [phone] * Full Code (Latest Code Status on File) Date Activated Date Inactivated Comments 08/28/2024 8:12 AM 08/29/2024 3:34 PM Care Teams Developmental Specialist Relationship Specialty Start Date End Date Tristian Reed DO PCP - General Internal Medicine 09/22/21
--- OUTSIDE RECORDS SUMMARY | 2024-12-06 14:22 | XMS_ITS | Encounter Summary ---
Author Organization [facility] Address [address] [place] [address] Phone Care Team Providers Care Metal Gauge Maker Name Role Phone Trisitan Reed DO Primary Care Provider +1- [phone] Encounter Details Date Type Department Care Team [...] on file Legal Sex Female 3:52 AM BOX LINER Gender Identity Female 05/24/2022 8:12 PM BOX LINER Sexual Orientation Straight 05/24/2022 8: 12 PM BOX LINER documented as of this encounter Plan of Treatment Not on file documented as of this encounter Procedures Procedure Name Priority Date/Time Associated Diagnosis Comments SCAN - RADIOLOGY/IMAGING 05/16/2023 documented in this encounter Results * SCAN - RADIOLOGY/IMAGING (05/16/2023) Anatomical Region Laterality Modality Other us Provider Scanning Final Result documented in this encounter Visit Diagnoses Not on filedocumented in this encounter Care Teams Metal Gauge Maker Relationship Specialty Start Date End Date Tristian Reed DO PCP - General Internal Medicine 09/22/21 documented as of this encounter
[2024-12-06 14:45] LABS: Hematocrit 46.4 % (37.0-47.0); Hemoglobin 15.0 g/dL (12.0-15.0); Immature Granulocyte Percent A 0.2 % (0-0.5); Lymphocytes Absolute Auto 1.71 K/mm3 (0.9-3.2); Mean Corpuscular HGB Conc 32.3 g/dl (32-36); Mean Corpuscular Hemoglobin 28.4 pg (26-34); Mean Corpuscular Volume 87.7 fl (80-100); Nucleated Red Blood Cells Absolute Auto 0.000 K/mm3 (0.0-0.012); Nucleated Red Blood Cells Perc 0.0 % (0.0-0.2); Platelet Count Result 285 k/mm3 (150-375); Red Blood Count 5.29 M/mm3 (4.2-5.4); White Blood Count 5.3 K/mm3 (4.5-10.0)
[2024-12-06 14:55] LABS: Alanine Aminotransferase 27 U/L (6-35); Albumin Level 4.7 g/dL (3.5-5.1); Alkaline Phosphatase 98 U/L (38-126); Anion Gap 10 mmol/L (4-12); Aspartate Amino Transferase 36 U/L (14-36); Bilirubin,Total 0.4 mg/dL (0.2-1.3); Blood Urea Nitrogen 13 mg/dL (7-17); Calcium 9.7 mg/dL (8.4-10.2); Carbon Dioxide 31 mmol/L (22-30); Chloride 98 mmol/L (98-107); Estimated CRCL calculation 47 ml/min; Estimated Glomerular Filt Rate > 60; Glucose 96 mg/dL (65-110); Lipase 161 U/L (23-300); Potassium 3.5 mmol/L (3.4-5.0); Sodium 139 mmol/L (137-145); Total Protein 7.9 g/dL (6.3-8.2)
[2024-12-06 14:56] LABS: INR 0.9; Partial Thromboplastin Time 26.6 Seconds (22.3-36.8); Prothrombin Time 12.3 Seconds (11.1-14.7)
[2024-12-06 15:07] LABS: Troponin I < 0.012 ng/mL (0.000-0.034)
--- NOTE | 2024-12-06 15:56 | ED.RECABL ---
HPI - Recheck/Abnormal Lab/Rx General Chief Complaint: Recheck/Abnormal Lab/Rx <PILAR Oshea Last Filed: 12/06/24 16:07> Stated Complaint: htn, headaches, shortness of breath with exertion <PILAR Oshea Last Filed: 12/06/24 16:07> Time Seen by Provider: 12/06/24 15:56 <PILAR Oshea Last Filed: 12/06/24 16:07> Focused HPI: Patient is a 58 y/o female, with PMH of fibromyalgia, who presents to the ED with c/o HTN, HAs, CP, SOB. Patient reports she has been having intermittent headaches for the past 1 month. States they will wake her up out of her sleep. States they typically occur in temporal regions. States headaches have been every day. Takes Tylenol with minimal improvement. Was also given naratriptan by her neurologist w/o improvement. Patient notes hx of migraines, gets botox injections for these, but states current headaches are different than typical migraines. She also intermittent pressure/ fullness in her midsternal chest pain past 1 week. States this is worse with exertion. She had an episode of chest pain while watering her guerra on Tuesday. She then experienced nausea and Dry heaving later that evening. Saw her PCP for these today, and states her BP was elevated in the office, 150s systolic. She does not have hx of HTN. States she recently got off her lyrica/duloxetine for her fibromyalgia and thought BP elevations may be r/t this. Has checked her BP at home over the past month and states it has been elevated. GENERAL: Anxious-appearing, well-nourished, and in no acute distress. HEAD: Normocephalic, atraumatic. CHEST: Clear to auscultation. ?No respiratory distress. HEART: Regular rate and rhythm.? NEURO: ?Alert and oriented x3. Patient screened in triage and initial orders placed.? ?Additional care and disposition to be based upon?diagnostic testing and treatment. <PILAR Oshea Last Filed: 12/06/24 16:07> Source: patient <PILAR Oshea Last Filed: 12/06/24 16:07> Mode of arrival: ambulatory <Juana Jiménez PA-C - Last Filed: 12/06/24 16:07> Limitations: no limitations <Juana Jiménez PA-C - Last Filed: 12/06/24 16:07> History of Present Illness HPI narrative: Agree with the HPI above <Bharat Morris MD - Last Filed: 12/07/24 05:42> Related Data Home Medications: Home Medications ?Medication ?Instructions ?Recorded ?Confirmed ?Last Taken ?Type valacyclovir 1 gram tablet 1,000 mg PO .prn 02/04/20 12/06/24 Unknown History (Valtrex) cholecalciferol (vitamin D3) 25 25 mcg PO DAILY 06/19/20 12/06/24 Unknown History mcg (1,000 unit) capsule cannabidiol 100 mg/mL oral solution PO 03/10/21 12/06/24 Unknown History naratriptan 2.5 mg tablet See Rx Instructions PO .COMPLEX 12/06/24 12/06/24 Unknown History <Juana Jiménez PA-C - Last Filed: 12/06/24 16:07> Allergies/Adverse Reactions: Allergies Allergy/AdvReac Type Severity Reaction Status Date / Time No Known Allergies Allergy Verified 12/06/24 19:02 <Juana Jiménez PA-C - Last Filed: 12/06/24 16:07> Review of Systems Review of Systems: As reviewed above in HPI <Bharat Morris MD - Last Filed: 12/07/24 05:42> [facility] Past Medical History Medical History: Medical History Hyperlipemia, idiopathic familial High blood cholesterol Pain of both heels Screening for metabolic disorder Acquired hypothyroidism Hyperlipidemia <Juana Jiménez PA-C - Last Filed: 12/06/24 16:07> Family History Family History: Family History Sibling Patient's brother is in good health Mother Multiple sclerosis Rheumatoid arthritis Diabetes mellitus Other Family history of coronary artery disease Family history of lung cancer Family history of lupus erythematosus Family history of rheumatoid arthritis <Juana Jiménez PA-C - Last Filed: 12/06/24 16:07> Social History Social History: Social History Social History: caffeine-1 soda daily Smoking status: Never smoker Alcohol intake: never <Juana Jiménez PA-C - Last Filed: 12/06/24 16:07> Exam Narrative: GENERAL: [Well-appearing, well-nourished, and in no acute distress.] HEAD: [Normocephalic, atraumatic.] EYES: [PERRLA and EOMI.] ENT: Nares clear, no rhinorrhea or epistaxis. Mucous membranes moist. NECK: Supple. CHEST: [Clear to auscultation. No respiratory distress.] HEART: [Regular rate and rhythm]. No murmur heard. [Normal peripheral pulses.] ABDOMEN: [Soft, nondistended], [nontender], [No rigidity or guarding] EXTREMITIES: Normal range of motion. [No edema.] SKIN: Warm, dry, no rash. NEURO: [No focal deficits]. Alert and oriented [x3.] PSYCH: [Normal mood and affect.] <Bharat Morris MD - Last Filed: 12/07/24 05:42> Course Vital Signs Vital signs: Vital Signs Temperature 36.1 C L 12/06/24 14:23 Pulse Rate 104 H 12/06/24 14:23 Respiratory Rate 18 12/06/24 14:23 Blood Pressure 146/110 H 12/06/24 14:23 Pulse Oximetry 100 12/06/24 14:23 Oxygen Delivery Room Air 12/06/24 14:23 Temperature 36.1 C L 12/06/24 14:23 Pulse Rate 87 12/06/24 20:31 Respiratory Rate 21 H 12/06/24 20:31 Blood Pressure 196/107 H 12/06/24 20:31 Pulse Oximetry 96 12/06/24 20:31 Oxygen Delivery Room Air 12/06/24 14:23 <Juana Jiménez PA-C - Last Filed: 12/06/24 16:07> Vital Signs Temperature 36.1 C L 12/06/24 14:23 Pulse Rate 104 H 12/06/24 14:23 Respiratory Rate 18 12/06/24 14:23 Blood Pressure 146/110 H 12/06/24 14:23 Pulse Oximetry 100 12/06/24 14:23 Oxygen Delivery Room Air 12/06/24 14:23 Temperature 36.1 C L 12/06/24 14:23 Pulse Rate 87 12/06/24 20:31 Respiratory Rate 21 H 12/06/24 20:31 Blood Pressure 196/107 H 12/06/24 20:31 Pulse Oximetry 96 12/06/24 20:31 Oxygen Delivery Room Air 12/06/24 14:23 <Bharat Morris MD - Last Filed: 12/07/24 05:42> MDM - Recheck/Abnormal Lab/Rx MDM Narrative Medical decision making narrative: MSE by KAITLIN in triage. <Juana Jiménez PA-C - Last Filed: 12/06/24 16:07> MSE by KAITLIN in triage. Focused HPI: Patient is a 58 y/o female, with PMH of fibromyalgia, who presents to the ED with c/o HTN, HAs, CP, SOB. Patient reports she has been having intermittent headaches for the past 1 month. States they will wake her up out of her sleep. States they typically occur in temporal regions. States headaches have been every day. Takes Tylenol with minimal improvement. Was also given naratriptan by her neurologist w/o improvement. Patient notes hx of migraines, gets botox injections for these, but states current headaches are different than typical migraines. She also intermittent pressure/ fullness in her midsternal chest pain past 1 week. States this is worse with exertion. She had an episode of chest pain while watering her guerra on Tuesday. She then experienced nausea and Dry heaving later that evening. Saw her PCP for these today, and states her BP was elevated in the office, 150s systolic. She does not have hx of HTN. States she recently got off her lyrica/duloxetine for her fibromyalgia and thought BP elevations may be r/t this. Has checked her BP at home over the past month and states it has been elevated. Patient is not any acute distress, elevated blood pressure readings with the headache does raise suspicion potential intracranial pathology although she is unremarkable with a neurological assessment is intact alert oriented x3 GCS 15. No focal deficits. Describes the headache as stabbing behind the left eye consistent with a potential cluster or tension headache. Migraine headache history is a history of migraines. Intracranial pathology such as bleed subarachnoid is less likely. CT scans and cardiac workup was ordered which were unremarkable and negative. Patient thinks it could also be secondary to her being off of her Lyrica and wishes to restart this medication. She also wishes to pursue blood pressure management and will pursue this after we evaluate her and treat her headache and see if her blood pressure response accordingly. She was given Compazine, diphenhydramine, and magnesium, Toradol and fluids. Will discuss restarting Lyrica and a low-dose amlodipine for blood pressure management have her follow-up with her doctor which she was amenable with. Laboratory studies showed no leukocytosis or anemia. Normal platelet count. Normal PT, PTT, negative D-dimer. Electrolytes unremarkable. Normal creatinine, normal renal function, troponin negative, delta troponin negative. 6 hour troponin negative. Head CT shows no acute intracranial findings. Chest x-ray without any acute cardiopulmonary pathology. EKG shows sinus rhythm, no ST segment elevations, depressions or inversions. No evidence of LVH. Patient is stable for discharge home and will be sent home with a prescription for amlodipine and restart mint of her Lyrica at a low dose at her request. She will follow-up with regular doctor given return precautions. <Bharat Morris MD - Last Filed: 12/07/24 05:42> Medical Records Attestation: I reviewed the patient's medical records. <Bharat Morris MD - Last Filed: 12/07/24 05:42> Lab Data Attestation: I reviewed the patient's lab results. <Bharat Morris MD - Last Filed: 12/07/24 05:42> Result diagrams: 12/06/24 14:29 12/06/24 14:29 <Juana Jiménez PA-C - Last Filed: 12/06/24 16:07> Labs: Lab Results 12/06/24 12/06/24 12/06/24 Range/Units 14:28 14:29 17:21 WBC 5.3 (4.5-10.0) K/mm3 RBC 5.29 (4.2-5.4) M/mm3 Hgb 15.0 (12.0-15.0) g/dL Hct 46.4 (37.0-47.0) % MCV 87.7 (80-100) fl MCH 28.4 (26-34) pg MCHC 32.3 (32-36) g/dl RDW 13.5 (11.5-14.5) % Plt Count 285 (150-375) k/mm3 MPV 9.5 (7.4-10.4) fl Immature Gran % (Auto) 0.2 (0-0.5) % Neut % (Auto) 55.6 (45.5-73.1) % Lymph % (Auto) 32.5 (18.3-44.2) % [place] % (Auto) 9.3 H (2.6-8.5) % Eos % (Auto) 1.3 (0-4.4) % Baso % (Auto) 1.1 (0.2-1.2) % Lymph # (Auto) 1.71 (0.9-3.2) K/mm3 [place] # (Auto) 0.5 (0.1-0.6) K/mm3 Eos # (Auto) 0.1 (0-0.3) K/mm3 Baso # (Auto) 0.1 (0.0-0.1) K/mm3 Abs Immat Gran (auto) 0.01 (0.00-0.031) K/mm3 Absolute Neuts (auto) 2.9 (1.3-6.7) K/mm3 Absolute Nucleated RBC 0.000 (0.0-0.012) K/mm3 Nucleated RBC % 0.0 (0.0-0.2) % ESR 10 (0-20) mm/hr PT 12.3 (11.1-14.7) Seconds INR 0.9 APTT 26.6 (22.3-36.8) Seconds D-Dimer 0.34 (<0.48) ug/mL Sodium 139 (137-145) mmol/L Potassium 3.5 (3.4-5.0) mmol/L Chloride 98 (98-107) mmol/L Carbon Dioxide 31 H (22-30) mmol/L Anion Gap 10 (4-12) mmol/L BUN 13 (7-17) mg/dL Creatinine 0.92 (0.7-1.0) mg/dL Estim Creat Clear Calc 47 ml/min Estimated GFR > 60 (59 - ) Glucose 96 (65-110) mg/dL Calcium 9.7 (8.4-10.2) mg/dL Total Bilirubin 0.4 (0.2-1.3) mg/dL AST 36 (14-36) U/L ALT 27 (6-35) U/L Alkaline Phosphatase 98 (38-126) U/L Troponin I < 0.012 < 0.012 (0.000-0.034) ng/mL C-Reactive Protein < 0.5 (<1.0) mg/dL Total Protein 7.9 (6.3-8.2) g/dL Albumin 4.7 (3.5-5.1) g/dL Lipase 161 (23-300) U/L 12/06/24 Range/Units 20:22 WBC (4.5-10.0) K/mm3 RBC (4.2-5.4) M/mm3 Hgb (12.0-15.0) g/dL Hct (37.0-47.0) % MCV (80-100) fl MCH (26-34) pg MCHC (32-36) g/dl RDW (11.5-14.5) % Plt Count (150-375) k/mm3 MPV (7.4-10.4) fl Immature Gran % (Auto) (0-0.5) % Neut % (Auto) (45.5-73.1) % Lymph % (Auto) (18.3-44.2) % [place] % (Auto) (2.6-8.5) % Eos % (Auto) (0-4.4) % Baso % (Auto) (0.2-1.2) % Lymph # (Auto) (0.9-3.2) K/mm3 [place] # (Auto) (0.1-0.6) K/mm3 Eos # (Auto) (0-0.3) K/mm3 Baso # (Auto) (0.0-0.1) K/mm3 Abs Immat Gran (auto) (0.00-0.031) K/mm3 Absolute Neuts (auto) (1.3-6.7) K/mm3 Absolute Nucleated RBC (0.0-0.012) K/mm3 Nucleated RBC % (0.0-0.2) % ESR (0-20) mm/hr PT (11.1-14.7) Seconds INR APTT (22.3-36.8) Seconds D-Dimer (<0.48) ug/mL Sodium (137-145) mmol/L Potassium (3.4-5.0) mmol/L Chloride (98-107) mmol/L Carbon Dioxide (22-30) mmol/L Anion Gap (4-12) mmol/L BUN (7-17) mg/dL Creatinine (0.7-1.0) mg/dL Estim Creat Clear Calc ml/min Estimated GFR (59 - ) Glucose (65-110) mg/dL Calcium (8.4-10.2) mg/dL Total Bilirubin (0.2-1.3) mg/dL AST (14-36) U/L ALT (6-35) U/L Alkaline Phosphatase (38-126) U/L Troponin I < 0.012 (0.000-0.034) ng/mL C-Reactive Protein (<1.0) mg/dL Total Protein (6.3-8.2) g/dL Albumin (3.5-5.1) g/dL Lipase (23-300) U/L <Juana Jiménez PA-C - Last Filed: 12/06/24 16:07> Lab Results 12/06/24 12/06/24 12/06/24 Range/Units 14:28 14:29 17:21 WBC 5.3 (4.5-10.0) K/mm3 RBC 5.29 (4.2-5.4) M/mm3 Hgb 15.0 (12.0-15.0) g/dL Hct 46.4 (37.0-47.0) % MCV 87.7 (80-100) fl MCH 28.4 (26-34) pg MCHC 32.3 (32-36) g/dl RDW 13.5 (11.5-14.5) % Plt Count 285 (150-375) k/mm3 MPV 9.5 (7.4-10.4) fl Immature Gran % (Auto) 0.2 (0-0.5) % Neut % (Auto) 55.6 (45.5-73.1) % Lymph % (Auto) 32.5 (18.3-44.2) % [place] % (Auto) 9.3 H (2.6-8.5) % Eos % (Auto) 1.3 (0-4.4) % Baso % (Auto) 1.1 (0.2-1.2) % Lymph # (Auto) 1.71 (0.9-3.2) K/mm3 [place] # (Auto) 0.5 (0.1-0.6) K/mm3 Eos # (Auto) 0.1 (0-0.3) K/mm3 Baso # (Auto) 0.1 (0.0-0.1) K/mm3 Abs Immat Gran (auto) 0.01 (0.00-0.031) K/mm3 Absolute Neuts (auto) 2.9 (1.3-6.7) K/mm3 Absolute Nucleated RBC 0.000 (0.0-0.012) K/mm3 Nucleated RBC % 0.0 (0.0-0.2) % ESR 10 (0-20) mm/hr PT 12.3 (11.1-14.7) Seconds INR 0.9 APTT 26.6 (22.3-36.8) Seconds D-Dimer 0.34 (<0.48) ug/mL Sodium 139 (137-145) mmol/L Potassium 3.5 (3.4-5.0) mmol/L Chloride 98 (98-107) mmol/L Carbon Dioxide 31 H (22-30) mmol/L Anion Gap 10 (4-12) mmol/L BUN 13 (7-17) mg/dL Creatinine 0.92 (0.7-1.0) mg/dL Estim Creat Clear Calc 47 ml/min Estimated GFR > 60 (59 - ) Glucose 96 (65-110) mg/dL Calcium 9.7 (8.4-10.2) mg/dL Total Bilirubin 0.4 (0.2-1.3) mg/dL AST 36 (14-36) U/L ALT 27 (6-35) U/L Alkaline Phosphatase 98 (38-126) U/L Troponin I < 0.012 < 0.012 (0.000-0.034) ng/mL C-Reactive Protein < 0.5 (<1.0) mg/dL Total Protein 7.9 (6.3-8.2) g/dL Albumin 4.7 (3.5-5.1) g/dL Lipase 161 (23-300) U/L 12/06/24 Range/Units 20:22 WBC (4.5-10.0) K/mm3 RBC (4.2-5.4) M/mm3 Hgb (12.0-15.0) g/dL Hct (37.0-47.0) % MCV (80-100) fl MCH (26-34) pg MCHC (32-36) g/dl RDW (11.5-14.5) % Plt Count (150-375) k/mm3 MPV (7.4-10.4) fl Immature Gran % (Auto) (0-0.5) % Neut % (Auto) (45.5-73.1) % Lymph % (Auto) (18.3-44.2) % [place] % (Auto) (2.6-8.5) % Eos % (Auto) (0-4.4) % Baso % (Auto) (0.2-1.2) % Lymph # (Auto) (0.9-3.2) K/mm3 [place] # (Auto) (0.1-0.6) K/mm3 Eos # (Auto) (0-0.3) K/mm3 Baso # (Auto) (0.0-0.1) K/mm3 Abs Immat Gran (auto) (0.00-0.031) K/mm3 Absolute Neuts (auto) (1.3-6.7) K/mm3 Absolute Nucleated RBC (0.0-0.012) K/mm3 Nucleated RBC % (0.0-0.2) % ESR (0-20) mm/hr PT (11.1-14.7) Seconds INR APTT (22.3-36.8) Seconds D-Dimer (<0.48) ug/mL Sodium (137-145) mmol/L Potassium (3.4-5.0) mmol/L Chloride (98-107) mmol/L Carbon Dioxide (22-30) mmol/L Anion Gap (4-12) mmol/L BUN (7-17) mg/dL Creatinine (0.7-1.0) mg/dL Estim Creat Clear Calc ml/min Estimated GFR (59 - ) Glucose (65-110) mg/dL Calcium (8.4-10.2) mg/dL Total Bilirubin (0.2-1.3) mg/dL AST (14-36) U/L ALT (6-35) U/L Alkaline Phosphatase (38-126) U/L Troponin I < 0.012 (0.000-0.034) ng/mL C-Reactive Protein (<1.0) mg/dL Total Protein (6.3-8.2) g/dL Albumin (3.5-5.1) g/dL Lipase (23-300) U/L <Bharat Morris MD - Last Filed: 12/07/24 05:42> Imaging Data Attestation: I personally reviewed and interpreted this imaging study as follows: <Bharat Morris MD - Last Filed: 12/07/24 05:42> My impression: Impressions Chest X-Ray 12/06/24 15:19 IMPRESSION: No acute cardiopulmonary pathology. Head CT 12/06/24 17:03 IMPRESSION: No acute intracranial findings. <Bharat Morris MD - Last Filed: 12/07/24 05:42> Discharge Plan Discharge Clinical Impression: Cluster headache, History of migraine, Asymptomatic hypertension Chest pain Qualifiers: Chest pain type: unspecified Qualified Code(s): R07.9 - Chest pain, unspecified <Juana Jiménez PA-C - Last Filed: 12/06/24 16:07> Patient Disposition: Home <Juana Jiménez PA-C - Last Filed: 12/06/24 16:07> Condition: Stable <PILAR Oshea Last Filed: 12/06/24 16:07> Instructions: Antibiotic Form, Cluster Headache (ED), Acute Headache (DC), Chronic Hypertension (DC) <Juana Jiménez PA-C - Last Filed: 12/06/24 16:07> Additional Instructions: All of your laboratory studies and imaging tests are normal here. Your blood pressure is not causing any signs of end-organ damage or acute concerning but could be causing her headaches. We will treat this with blood pressure medicine including amlodipine to be taken once daily. Will also restart her Lyrica as it might help with her chronic pain and also help lower your blood pressure if your pain is controlled. Follow-up with your doctors on outpatient basis and return with any new or worsening concerns at any time. <Juana Jiménez PA-C - Last Filed: 12/06/24 16:07> Patient Language: Faroese <Juana Jiménez PA-C - Last Filed: 12/06/24 16:07> Prescriptions: New amlodipine 10 mg tablet 10 mg PO DAILY Qty: 30 0RF pregabalin [Lyrica] 50 mg capsule 50 mg PO HS Qty: 30 0RF No Action naratriptan 2.5 mg tablet See Rx Instructions PO .COMPLEX Rx Instructions: take 1 tab at onset of headache; if no relief may repeat 1 tab after at least 4 hrs; max = 2 tabs/24 hrs PO valacyclovir [Valtrex] 1 gram tablet 1,000 mg PO .prn cholecalciferol (vitamin D3) 25 mcg (1,000 unit) capsule 25 mcg PO DAILY cannabidiol 100 mg/mL solution PO levothyroxine 25 mcg tablet 25 mcg PO DAILY Qty: 90 1RF atorvastatin 40 mg tablet 40 mg PO DAILY Qty: 90 1RF omeprazole 40 mg capsule,delayed release(DR/EC) See Rx Instructions .ROUTE .COMPLEX Qty: 90 0RF Dose Instruction: TAKE 1 CAPSULE BY MOUTH DAILY Rx Instructions: TAKE 1 CAPSULE BY MOUTH DAILY duloxetine [Cymbalta] 20 mg capsule,delayed release(DR/EC) 20 mg PO DAILY Qty: 90 0RF cyclobenzaprine 10 mg tablet 10 mg PO TID PRN (Reason: muscle spasm) Qty: 30 0RF <PILAR Oshea Last Filed: 12/06/24 16:07> Follow-up/Referrals: Yakel,Madeline A., [employer] [Primary Care Provider] - <Juana Jiménez PA-C - Last Filed: 12/06/24 16:07> Time of Disposition: 21:33 <Juana Jiménez PA-C - Last Filed: 12/06/24 16:07> 21:33 <Bharat Morris MD - Last Filed: 12/07/24 05:42>
[2024-12-06 16:17] LABS: CRP < 0.5 mg/dL (<1.0)
--- NOTE | 2024-12-06 17:14 | ECG_ITS ---
Test Date: 2024-12-06 17:20:47 Measurements Intervals [place] Rate: 81 P: 55 MS: 130 QRS: 0 QRSD: 77 T: 30 QT: 378 QTc: 440 Interpretive Statements SINUS RHYTHM Compared to ECG 12/06/2024 14:32:16 Short MS interval no longer present Electronically Signed On 12-07-2024 12:43:05 CDT by Constantin Monteiro M.D.
[2024-12-06 18:00] LABS: Troponin I < 0.012 ng/mL (0.000-0.034)
--- OUTSIDE RECORDS SUMMARY | 2024-12-06 19:23 | XMS_ITS | Clinical Summary ---
Author Organization [facility] Address [facility] access hospital[address] [place] [address] Care Team Providers Care Sales Specialist Name Role Phone Tristian Reed DO Primary Care Provider +1- [phone] Allergies No known active allergies Medications levothyroxine [...] Overview (05/02/2023): Decreased libido;Recorded Elsewhere: No Location: [facility] Source: EHR Chronic: N Practice ID: [id number] Billable Time: 09:45:00 AM Superficial dyspareunia 07/25/2019 Overview (05/02/2023): Superficial (introital) dyspareunia;Practice ID: [id number] Leukocytosis 07/25/2019 Overview (05/02/2023): Elevated white blood cell count, unspecified;Practice ID: [id number] High blood leukocyte count 07/25/2019 Overview (11/12/2024): Elevated white blood cell count, unspecified;Practice ID: [id number] Encounters Date Type Department Care Team Description 12/06/2024 Results Follow-Up [facility] Neuro Muscle [address] [facility] Medicine [facility] [place] [address] [place] [address] Erick Madrid MD Vitamin B12, Copper, serum, Methylmalonic acid, serum, Creatine kinase (CK), total 12/03/2024 1:40 PM CDT Lab [facility] ([facility] [address] [place] [address] Muscle weakness 12/03/2024 10:00 AM CDT Office Visit [facility] Neuro [facility]cle [address] [place] [address] [place] [address] Erick Madrid MD Muscle weakness (Primary Dx) 11/12/2024 12:00 PM CDT Office Visit [facility] Radiology, Interventional Radiology [address] [facility] [address] [place] [address] Weston Barnes MD Angiomyolipoma (Primary Dx) 11/09/2024 Orders Only [facility] General Neurology [address] [place] [id number] Sherry Cruz Intractable chronic migraine without aura and without status migrainosus (Primary Dx) 11/07/2024 Orders Only [facility] General Neurology [address] [place] [address] Annmarie Holloway PA Generalized muscle weakness (Primary Dx); Muscle weakness 10/25/2024 2:30 PM CDT Procedure visit [facility] General Neurology [address] [facility] 6th Floor [address] [place] [address] Cheng Stanley MD Intractable chronic migraine without aura and without status migrainosus (Primary Dx) 10/23/2024 9:49 PM CDT - 10/23/2024 11:59 PM CDT Hospital Encounter [facility] ([facility]) [address] [place] [address] Discharge Disposition: Discharge to home or self care 10/23/2024 3:30 PM CDT Office Visit [facility] General Neurology [address] [facility] 6th Floor [address] [place] [address] Annmarie Holloway PA Muscle weakness (Primary Dx); Intractable chronic migraine without aura and without status migrainosus 10/12/2024 Telephone [facility] Scheduling [address] [place] [address] Everton De Santiago MD from Last 3 [...] on file Legal Sex Female 3:52 AM INFECTION CONTROL MANAGER Gender Identity Female 05/24/2022 8:12 PM INFECTION CONTROL MANAGER Sexual Orientation Straight 05/24/2022 8: 12 PM INFECTION CONTROL MANAGER Obstetrics History Last Filed Vital Signs Vital [...] this topic Medical Devices Implanted Type Area Adult School Teacher Device Identifier Shelf Expiration Date Model / Serial / Lot Shi & Nephew/Richco/Or tho Plate Std 48mm 3 Hole Evos Bone Radial Right Distal Volar [id number] - [id number] Implanted:Qty: 1 on 05/03/2023 by Cheng Ferrera MD at [facility] Right: Radius [employer]/Richco/Or tho [id number] / / [employer]hew[employer]Richco/Or tho Evos Mini 2mm 3.3mm 10mm Lock Plastics Nurse Long Bone Small Bone T6 [id number] - [id number] Implanted:Qty: 1 on 05/03/2023 by Cheng Ferrera MD at [facility] Right: Radius [employer]/Richco/Or tho [id number] / / [employer]hew/Richco/Or tho Evos Mini 80a0-26.3x1.2mm 71mm 3 Hole Head 5 Hole Shaft Variable [id number] - [id number] Implanted:Qty: 1 on 05/03/2023 by Cheng Ferrera MD at [facility] Right: Radius [employer]/Richco/Or tho [id number] / / [employer]hew[employer]Richco/Or tho Evos Mini 2mm 3.3mm 20mm Lock Long Bone Small Bone T6 Screw Bone [id number] - [id number] Implanted:Qty: 1 on 05/03/2023 by Cheng Ferrera MD at [facility] Right: Radius [employer]/Richco/Or tho [id number] / / [employer]hew[employer]Richco/Or tho Evos Mini 2.4mm 3.8mm 12mm Self Tap Plastics Nurse Long Bone Small Bone [id number] - [id number] Implanted:Qty: 2 on 05/03/2023 by Cheng Ferrera MD at [facility] Right: Radius [employer]hew/Richco/Or tho [id number] / / [employer]hew/Richco/Or tho 2.4mm 3.8mm 10mm Self Retaining Screwdriver Self Tap Flat Head [id number] - [id number] Implanted:Qty: 1 on 05/03/2023 by Cheng Ferrera MD at [facility] Right: Radius [employer]/Rich[employer]/Or tho [id number] / / [employer]hew[employer]Rich[employer]/Or tho Evos Mini 2.4mm 3.8mm 14mm Lock Long Bone Small Bone T7 Screw [id number] - [id number] Implanted:Qty: 2 on 05/03/2023 by Cheng Ferrera MD at [facility] Right: Radius [employer]hew/Richco/Or tho [id number] / / [employer]hew[employer]Rich[employer]/Or tho Evos Mini 2.4mm 3.8mm 17mm Lock Long Bone Small Bone T7 Screw [id number] - [id number] Implanted:Qty: 1 on 05/03/2023 by Cheng Ferrera MD at [facility] Right: Radius [employer]hew/Richco/Or tho [id number] / / [employer]hew/Richco/Or tho Evos Mini 2.4mm 3.8mm 18mm Lock Plastics Nurse Long Bone Small Bone T7 [id number] - [id number] Implanted:Qty: 1 on 05/03/2023 by Cheng Ferrera MD at [facility] Right: Radius [employer]hew/Richco/Or tho [id number] / / Shi [employer] Nephew/Richco/Or tho 2mm 3mm 22mm Self Retaining Screwdriver Self Tap Flat Head Cortex [id number] - [id number] Implanted:Qty: 1 on 05/03/2023 by Cheng Ferrera MD at [facility] Right: Radius [employer]hew/Richco/Or tho [id number] / / Shi [employer] Nephew/Richco/Or tho 2mm 3mm 14mm Self Retaining Screwdriver Self Tap Flat Head Cortex [id number] - [id number] Implanted:Qty: 1 on 05/03/2023 by Cheng Ferrera MD at [facility] Right: Radius [employer]hew/Richco/Or tho [id number] / / Shi [employer] Nephew/Richco/Or tho Evos Mini 2mm 3.3mm 13mm Lock Long Bone Small Bone T6 Screw Bone [id number] - [id number] Implanted:Qty: 1 on 05/03/2023 by hCeng Ferrera MD at [facility] Right: [facility] Shi [employer] Nephew/Richco/Or tho [id number] / / [employer]iq Embosphere Prefill Saline Syringe Compressible Nonaggregate S420gh - [id number] Implanted:Qty: 1 on 08/28/2024 at [facility] HipLogiq 04/07/2027 [id number] / / [id number] Sumerian Coil Emolization Coated Detachable [place] Min[employer] Tungsten Embold 0srs1gx [id number] - [id number] Implanted:Qty: 1 on 08/28/2024 at [facility] Sumerian 10/26/2026 [id number] / / [id number] Adchemy Angio-Seal Vip 6fr Closere Device [id number] - [id number] Implanted:Qty: 1 on 08/28/2024 at [facility] Adchemy 03/30/2025 [id number] / / [id number] Explanted Type Area Adult School Teacher Device Identifier Shelf Expiration Date Model / Serial / Lot [employer] Olga .062in 4in Trocar Point Both Ends Orthopedic Wire 1600-462ns - [id number] Explanted:Qty: 1 on 05/03/2023 at [facility] Right: [facility] [employer] Instruments [id number] / / [employer] Olga .045in 4in 2 [place]car Point End No Thread Standard Wire [id number] - [id number] Explanted:Qty: 2 on 05/03/2023 at [facility] Right: Radius [employer] Instruments 1600-181 / / Procedures Procedure Name Priority Date/Time [...] its performance characteristics determined by [facility] in a manner consistent with CLIA requirements. This test has not been cleared or approved by the U.S. Food and Drug Administration. Test Performed by: [place] [address] At Risk Paraprofessional: Miguel Martínez Ph.D.; CLIA# [id number] Blood 12/03/2024 12:1 7 PM CDT 12/03/2024 3:03 PM CDT us Erick Madrid MD LAB BLOOD ORDERABLES Fin al Result [facility] Department [place] [address] [facility] ref Lab * Copper, serum (12/03/2024 12:17 PM CDT) Copper 127 77 - 206 mcg/dL [facility] ref Lab Comment: ADDITIONAL INFORMATION This test was developed and its performance characteristics determined by [facility] in a manner consistent with CLIA requirements. This test has not been cleared or approved by the U.S. Food and Drug Administration. Test Performed by: [facility] Laboratories - [facility] [address] [place] [address] At Risk Paraprofessional: Miguel Martínez Ph.D.; CLIA# [id number] Blood 12/03/2024 12:1 7 PM CDT 12/03/2024 12:42 PM CDT Erick Madrid MD LAB BLOOD [place] [address] [facility] ref Lab * Vitamin B12 (12/03/2024 12:17 PM CDT) Vitamin B12 460 230 - 1,250 pg/mL Blood 12/03/2024 12:1 7 PM CDT 12/03/2024 12:37 PM CDT Erick Madrid MD LAB BLOOD ORDERABLES Fin al Result Performing Organization Address City/[facility] Co de Phone Number [facility] [place] [address] * Creatine kinase (CK), total (12/03/2024 12:17 PM CDT) CK 164 30 - 200 Units/L Blood 12/03/2024 12:1 7 PM CDT 12/03/2024 12:37 PM CDT Erick Madrid MD LAB BLOOD ORDERABLES Fin al Result [facility] [place] [address] * MR Body Outside Reference (10/23/2024 9:49 PM CDT) Impressions RAD_P[facility] - 10/23/2024 9:49 PM CDT These images are for Reference purposes only and have not been reviewed by [facility] Radiology. There will be no report generated by a [facility] Radiologist. Narrative RAD_KELLY[facility] - 10/23/2024 9:49 PM CDT EXAMINATION: Images For Reference Purposes Only us Weston Barnes MD IMG MRI PROCEDURES Final R esult [facility] from Last 3 Months Insurance [employer] [employer] [facility] [employer] PLUS MEDICARE [facility] [employer] [employer] PLUS [employer] CHO[employer] PLUS MEDICARE Advance Directives For more information, please contact: [phone] * Full Code (Latest Code Status on File) Date Activated Date Inactivated Comments 08/28/2024 8:12 AM 08/29/2024 3:34 PM Care Teams Sales Specialist Relationship Specialty Start Date End Date Tristian Reed DO PCP - General Internal Medicine 09/22/21
--- OUTSIDE RECORDS SUMMARY | 2024-12-06 19:23 | XMS_ITS | Encounter Summary ---
Author Organization [facility] Address [address] [place] [address] Phone Care Team Providers Care Deputy Sheriff Lieutenant Name Role Phone Tristian Reed DO Primary Care Provider +1- [phone] Encounter Details Date Type Department Care Team [...] on file Legal Sex Female 3:52 AM JACKET CHANGER Gender Identity Female 05/24/2022 8:12 PM JACKET CHANGER Sexual Orientation Straight 05/24/2022 8: 12 PM JACKET CHANGER documented as of this encounter Plan of Treatment Not on file documented as of this encounter Procedures Procedure Name Priority Date/Time Associated Diagnosis Comments SCAN - RADIOLOGY/IMAGING 07/25/2023 documented in this encounter Results * SCAN - RADIOLOGY/IMAGING (07/25/2023) Anatomical Region Laterality Modality Other us Provider Scanning Final Result documented in this encounter Visit Diagnoses Not on filedocumented in this encounter Care Teams Deputy Sheriff Lieutenant Relationship Specialty Start Date End Date Tristian Reed DO PCP - General Internal Medicine 09/22/21 documented as of this encounter
--- OUTSIDE RECORDS SUMMARY | 2024-12-06 19:23 | XMS_ITS | Encounter Summary ---
Author Organization [facility] Address [address] [place] [address] Phone Care Team Providers Care Stamp Pad Maker Name Role Phone Tristian Reed DO Primary Care Provider +1- [phone] Encounter Details Date Type Department Care Team [...] on file Legal Sex Female 3:52 AM ADZING AND BORING MACHINE FEEDER Gender Identity Female 05/24/2022 8:12 PM ADZING AND BORING MACHINE FEEDER Sexual Orientation Straight 05/24/2022 8: 12 PM ADZING AND BORING MACHINE FEEDER documented as of this encounter Plan of Treatment Not on file documented as of this encounter Procedures Procedure Name Priority Date/Time Associated Diagnosis Comments SCAN - RADIOLOGY/IMAGING 05/16/2023 documented in this encounter Results * SCAN - RADIOLOGY/IMAGING (05/16/2023) Anatomical Region Laterality Modality Other us Provider Scanning Final Result documented in this encounter Visit Diagnoses Not on filedocumented in this encounter Care Teams Stamp Pad Maker Relationship Specialty Start Date End Date Tristian Reed DO PCP - General Internal Medicine 09/22/21 documented as of this encounter
--- OUTSIDE RECORDS SUMMARY | 2024-12-06 19:23 | XMS_ITS | Encounter Summary ---
Author Organization [facility] Address [address] [place] [address] Phone Care Team Providers Care Axle Bearing Polisher Name Role Phone Tristian Reed DO Primary Care Provider +1- [phone] Encounter Details Date Type Department Care Team [...] on file Legal Sex Female 3:52 AM LIFE CLAIMS EXAMINER Gender Identity Female 05/24/2022 8:12 PM LIFE CLAIMS EXAMINER Sexual Orientation Straight 05/24/2022 8: 12 PM LIFE CLAIMS EXAMINER documented as of this encounter Plan of Treatment Not on file documented as of this encounter Procedures Procedure Name Priority Date/Time Associated Diagnosis Comments SCAN - RADIOLOGY/IMAGING 10/08/2022 documented in this encounter Results * SCAN - RADIOLOGY/IMAGING (10/08/2022) Anatomical Region Laterality Modality Other us Provider Scanning Final Result documented in this encounter Visit Diagnoses Not on filedocumented in this encounter Care Teams Axle Bearing Polisher Relationship Specialty Start Date End Date Tristian Reed, DO PCP - General Internal Medicine 09/22/21 documented as of this encounter
--- OUTSIDE RECORDS SUMMARY | 2024-12-06 19:23 | XMS_ITS | Encounter Summary ---
Author Organization [facility] Address [address] [place] [address] Phone Care Team Providers Care Veterinary Medicine Scientist Name Role Phone Tristian Reed DO Primary Care Provider +1- [phone] Encounter Details Date Type Department Care Team (Late st Contact Info) Description 12/06/2024 Results Follow-Up [facility] Neuro Muscle [address] [facility] 6th [place] [address] [place] [address] Erick Madrid MD [address] [facility] [address] [place], [place] [id number] Vitamin B12, Copper, serum, Methylmalonic acid, serum, Creatine kinase (CK), total Social History Tobacco Use Types Packs/Day Years Used Date Smoking Tobacco: Never Smokeless Tobacco: Never AUDIT-C Answer Date Recorded Q1: [...] on file Legal Sex Female 3:52 AM AUTOMOBILE BODY WORKER Gender Identity Female 05/24/2022 8:12 PM AUTOMOBILE BODY WORKER Sexual Orientation Straight 05/24/2022 8: 12 PM AUTOMOBILE BODY WORKER documented as of this encounter Plan of Treatment Not on file documented as of this encounter Visit Diagnoses Not on filedocumented in this encounter Care Teams Veterinary Medicine Scientist Relationship Specialty Start Date End Date Tristian Reed DO PCP - General Internal Medicine 09/22/21 documented as of this encounter
--- OUTSIDE RECORDS SUMMARY | 2024-12-06 19:23 | XMS_ITS | Referral Summary ---
Author Organization [facility] Address [address] [place] [address] Care Team Providers Care Probation Manager Name Role Phone Tristian Reed DO Primary Care Provider [phone]- [phone] Encounters Date Type Department Care Team Description 12/06/2024 Results Follow-Up [facility] Neuro Muscle [address] [facility] 6th [place] [address] [place] [phone] Erick Madrid MD Vitamin B12, Copper, serum, Methylmalonic acid, serum, Creatine kinase (CK), total 12/03/2024 1:40 PM CDT Lab [facility] Advanced Medicine (CAM) [address] [place] [phone] Muscle weakness 12/03/2024 10:00 AM CDT Office Visit [facility] Neuro Muscle [address] [facility] 6th [place] [address] [place] [phone] Erick Madrid MD Muscle weakness (Primary Dx) 11/12/2024 12:00 PM CDT Office Visit [facility] Radiology, Interventional Radiology [address] [facility] [address] [place] [phone] Weston Barnes MD Angiomyolipoma (Primary Dx) 11/09/2024 Orders Only [facility] General Neurology [address] [facility] 6th [address] [place] [address] Sherry Cruz Intractable chronic migraine without aura and without status migrainosus (Primary Dx) 11/07/2024 Orders Only [facility] General Neurology [address] [facility] 6[address] [place] [address] Annmarie Holloway PA Generalized muscle weakness (Primary Dx); Muscle weakness 10/25/2024 2:30 PM CDT Procedure visit [facility] General Neurology [address] [facility] 6[address] [place] [address] Cheng Stanley MD Intractable chronic migraine without aura and without status migrainosus (Primary Dx) 10/23/2024 9:49 PM CDT - 10/23/2024 11:59 PM CDT Hospital Encounter [facility] [address] [place] [address] Discharge Disposition: Discharge to home or self care 10/23/2024 3:30 PM CDT Office Visit [facility] General Neurology [address] [facility] 6th [address] [place] [phone] Annmarie Holloway PA Muscle weakness (Primary Dx); Intractable chronic migraine without aura and without status migrainosus 10/12/2024 Telephone [facility] Scheduling [address] [place] [address] Everton De Santiago MD from Last 3 [...] Overview (05/02/2023): Decreased libido;Recorded Elsewhere: No Location: [facility] Source: EHR Chronic: N Practice ID: [id number] [...] on file Legal Sex Female 3:52 AM MACHINE RIVETER Gender Identity Female 05/24/2022 8:12 PM MACHINE RIVETER Sexual Orientation Straight 05/24/2022 8: 12 PM MACHINE RIVETER Last Filed Vital Signs Vital Sign Reading [...] on file Medical Devices Implanted Type Area Sorting Machine Attendant Device Identifier Shelf Expiration Date Model / Serial / Lot Shi & Nephew/Richco/Or tho Plate Std 48mm 3 Hole Evos Bone Radial Right Distal Volar [id number] - [id number] Implanted:Qty: 1 on 05/03/2023 by Cheng Ferrera MD at [facility] Right: Radius [employer]hew/Richco/Or tho [id number] / / Shi [employer]hew/Richco/Or tho Evos Mini 2mm 3.3mm 10mm Lock Php Software Engineer Long Bone Small Bone T6 [id number] - [id number] Implanted:Qty: 1 on 05/03/2023 by Cheng Ferrera MD at [facility] Right: Radius [employer]hew/Richco/Or tho [id number] / / Shi [employer] Nephew/Richco/Or tho Evos Mini 71m8-76.3x1.2mm 71mm 3 Hole Head 5 Hole Shaft Variable [id number] - [id number] Implanted:Qty: 1 on 05/03/2023 by Cheng Ferrera MD at [facility] Right: Radius [employer]hew/Richco/Or tho [id number] / / Shi [employer] Nephew/Richco/Or tho Evos Mini 2mm 3.3mm 20mm Lock Long Bone Small Bone T6 Screw Bone [id number] - [id number] Implanted:Qty: 1 on 05/03/2023 by Cheng Ferrera MD at [facility] Right: Radius [employer]hew/Richco/Or tho [id number] / / Shi [employer] Nephew/Richco/Or tho Evos Mini 2.4mm 3.8mm 12mm Self Tap Php Software Engineer Long Bone Small Bone [id number] - [id number] Implanted:Qty: 2 on 05/03/2023 by Cheng Ferrera MD at [facility] Right: Radius [employer]hew/Richco/Or tho [id number] / / Shi [employer] Nephew/Richco/Or tho 2.4mm 3.8mm 10mm Self Retaining Screwdriver Self Tap Flat Head [id number] - [id number] Implanted:Qty: 1 on 05/03/2023 by Cheng Ferrera MD at [facility] Right: Radius [employer]hew/Richco/Or tho [id number] / / [employer]hew/Richco/Or tho Evos Mini 2.4mm 3.8mm 14mm Lock Long Bone Small Bone T7 Screw [id number] - [id number] Implanted:Qty: 2 on 05/03/2023 by Cheng Ferrera MD at [facility] Right: Radius [employer]hew/Richco/Or tho [id number] / / Shi & Nephew/Richco/Or tho Evos Mini 2.4mm 3.8mm 17mm Lock Long Bone Small Bone T7 Screw [id number] - [id number] Implanted:Qty: 1 on 05/03/2023 by Cheng Ferrera MD at [facility] Right: Radius Shi [employer] Nephew/Richco/Or tho [id number] / / Shi & Nephew/Richco/Or tho Evos Mini 2.4mm 3.8mm 18mm Lock Php Software Engineer Long Bone Small Bone T7 [id number] - [id number] Implanted:Qty: 1 on 05/03/2023 by Cheng Ferrera MD at [facility] Right: Radius Shi [employer] Nephew/Richco/Or tho [id number] / / Shi & Nephew/Richco/Or tho 2mm 3mm 22mm Self Retaining Screwdriver Self Tap Flat Head Cortex [id number] - [id number] Implanted:Qty: 1 on 05/03/2023 by Cheng Ferrera MD at [facility] Right: Radius Shi [employer] Nephew/Richco/Or tho [id number] / / Shi & Nephew/Richco/Or tho 2mm 3mm 14mm Self Retaining Screwdriver Self Tap Flat Head Cortex [id number] - [id number] Implanted:Qty: 1 on 05/03/2023 by Cheng Ferrera MD at [facility] Right: Radius Shi [employer] Nephew/Richco/Or tho [id number] / / Shi & Nephew/Richco/Or tho Evos Mini 2mm 3.3mm 13mm Lock Long Bone Small Bone T6 Screw Bone [id number] - [id number] Implanted:Qty: 1 on 05/03/2023 by Cheng Ferrera MD at [facility] Right: Radius Shi & Nephew/Richco/Or tho [id number] / / [employer] Embosphere Prefill Saline Syringe Compressible Nonaggregate S420gh - [id number] Implanted:Qty: 1 on 08/28/2024 at [facility] [employer] 04/07/2027 [id number] / / [id number] Brink[employer] Thanh Coil Emolization Coated Detachable [place] Tungsten Embold 5lsm7nd [id number] - [id number] Implanted:Qty: 1 on 08/28/2024 at [facility] [employer] Thanh 10/26/2026 [id number] / / [id number] Angio-Seal Vip 6fr Closere Device [id number] - [id number] Implanted:Qty: 1 on 08/28/2024 at [facility] [employer] 03/30/2025 [id number] / / [id number] Explanted Type Area Sorting Machine Attendant Device Identifier Shelf Expiration Date Model / Serial / Lot Microaire [employer] Instruments Olga .062in 4in [place] Both Ends Orthopedic Wire 1600-462ns - [id number] Explanted:Qty: 1 on 05/03/2023 at [facility] Right: Radius [employer] Instruments [id number] / / [employer]aire [employer] Instruments Olga .045in 4in 2 [place] End No Thread Standard Wire [id number] - [id number] Explanted:Qty: 2 on 05/03/2023 at [facility] Right: Radius [employer]aire Surgical Instruments 1600-166 / / Procedures Procedure Name Priority Date/Time [...] 12:17 PM CDT) MMA 0.44(H) <=0.40 nmol/mL [place] ref Lab Comment: In this sample, the concentration of methylmalonic acid (MMA) was minimally elevated. As the upper limit of the reference range varies in different laboratories from 0.4 to 0.6 nmol/mL. This finding could be considered normal, especially if the patient does not show other signs of vitamin B12 deficiency. ADDITIONAL INFORMATION This test was developed and its performance characteristics determined by [facility] in a manner consistent with CLIA requirements. This test has not been cleared or approved by the U.S. Food and Drug Administration. Test Performed by: [address] [address] Camp Dining Room Attendant: Miguel Martínez Ph.D.; CLIA# [id number] Blood 12/03/2024 12:1 7 PM CDT 12/03/2024 3:03 PM CDT Erick Madrid MD LAB BLOOD ORDERABLES Fin al Result Performing Organization Address [facility] de Phone Number [facility] [place] [address] [place] ref [facility] * Copper, serum (12/03/2024 12:17 PM CDT) Pathologist [facility] Copper 127 77 - 206 mcg/dL [place] ref Lab Comment: ADDITIONAL INFORMATION This test was developed and its performance characteristics determined by [facility] in a manner consistent with CLIA requirements. This test has not been cleared or approved by the U.S. Food and Drug Administration. Test Performed by: [facility] [address] [place] [address] [place] Room Attendant: Miguel Martínez Ph.D.; CLIA# [id number] Blood 12/03/2024 12:1 7 PM CDT 12/03/2024 12:42 PM CDT Erick Madrid MD LAB BLOOD ORDERABLES Fin al Result Performing Organization Address [facility] de Phone Number [facility] Department [place] [address] [place] ref Lab * Vitamin B12 (12/03/2024 12:17 PM CDT) Vitamin B12 460 230 - 1,250 pg/mL Blood 12/03/2024 12:1 7 PM CDT 12/03/2024 12:37 PM CDT Erick Madrid MD LAB BLOOD ORDERABLES Fin al Result Performing Organization Address [facility] de Phone Number LYLE ARMSTRONG Alex [facility] Department [place] [address] * Creatine kinase (CK), total (12/03/2024 12:17 PM CDT) CK 164 30 - 200 Units/L Blood 12/03/2024 12:1 7 PM CDT 12/03/2024 12:37 PM CDT Erick Madrid MD LAB BLOOD ORDERABLES Fin al Result Performing Organization Address [facility] de Phone Number LYLE ARMSTRONG Alex [facility] Department [place] [address] * MR Body Outside Reference (10/23/2024 9:49 PM CDT) Impressions RAD_PACS_BJ - 10/23/2024 9:49 PM CDT These images are for Reference purposes only and have not been reviewed by [facility] Radiology. There will be no report generated by a [facility] Radiologist. Narrative RAD_PACS_BJ - 10/23/2024 9:49 PM CDT EXAMINATION: Images For Reference Purposes Only Weston Barnes MD IMG MRI PROCEDURES Final R esult Performing Organization Address [facility] de Phone Number RAD_PACS_[facility] from Last 3 Months Insurance [facility] CHOICE PLUS MEDICARE [facility] CHOICE PLUS [facility] CHOICE PLUS MEDICARE Advance Directives For more information, please contact: [phone] * Full Code (Latest Code Status on File) Date Activated Date Inactivated Comments 08/28/2024 8:12 AM 08/29/2024 3:34 PM Care Teams Probation Manager Relationship Specialty Start Date End Date Tristian Reed DO PCP - General Internal Medicine 09/22/21
--- OUTSIDE RECORDS SUMMARY | 2024-12-06 19:23 | XMS_ITS | Continuity of Care Document ---
Author Organization [facility] Address [address] [place] [address] utive [facility] [address] [place] [address] Phone Care Team Providers Care Ice Skating Instructor Name Role Phone Ramos OD, Matthias Unavailable Unavailable Procedures Procedure Date Office/outpatient Visit, Est Refraction Advance Directives Directive Yes / No Effective Date File Name No Information Encounters Encounter Description Practice Location Reason(s) For Visit Diagnoses Date Provider Providers Copied on Encounter Office/outpat ient Visit, Est [facility], [address] [place] [address] [facility] [address], [place], [place], [id number], [place] tel:[phone] [facility] [place] No Information 6-201 0 Ramos OD Matthias. [address] [place] , [address], [place], [address], [place]. tel:[phone] Family History Family Member Type Diagnosis Age At Onset No Information Payers Payer name Insurance type Covered libertarian ID Authorjulissa declanman(s) [employer] Plan [id number] Social History Type Description Quantity Date Captured Comments Sex Female Smoking Status No Information Chief Complaint And Reason For Visit No Information Reason For Referral Reason For Referral No Information History Of Present Illness Encounter Date Complaint History Of Prese nt Illness No Information Functional Status Date Functional Assessmen t No Information Instructions Date Instruction Additional Infor mation No Information Assessments Type Assessment Date No Information Patient Care Teams Name Effective Dates (start - stop) Status Members No Information
--- OUTSIDE RECORDS SUMMARY | 2024-12-06 19:23 | XMS_ITS | Continuity of Care Document ---
Author Organization [employer] [facility] Address [address] [place] [address] [address] [place] [address] Phone Care Team Providers Care Credit Checker Name Role Phone Raymundo FAMDali Unavailable Unavailable Procedures Procedure Date Therapeutic Activities Neuromuscular Re-Ed Therapeutic Exercise Manual Therapy Hot or Cold Pack Therapeutic Activities Neuromuscular Re-Ed Therapeutic Exercise Hot or Cold Pack Therapeutic Activities Neuromuscular Re-Ed Manual Therapy Hot or Cold Pack Therapeutic Activities Neuromuscular Re-Ed Therapeutic Exercise Hot or Cold Pack Therapeutic Activities Neuromuscular Re-Ed Therapeutic Exercise Hot or Cold Pack Progress Note Therapeutic Activities Neuromuscular Re-Ed Therapeutic Exercise Hot or Cold Pack Therapeutic Activities Neuromuscular Re-Ed Therapeutic Exercise Hot or Cold Pack Therapeutic Activities Neuromuscular Re-Ed Therapeutic Exercise Hot or Cold Pack Therapeutic Activities Neuromuscular Re-Ed Therapeutic Exercise Hot or Cold Pack Therapeutic Activities Neuromuscular Re-Ed Therapeutic Exercise Hot or Cold Pack Therapeutic Activities Neuromuscular Re-Ed Therapeutic Exercise Hot or Cold Pack Therapeutic Activities Therapeutic Exercise Manual Therapy Hot or Cold Pack Therapeutic Activities Neuromuscular Re-Ed Therapeutic Exercise Hot or Cold Pack OT Evaluation Moderate Complexity Therapeutic Activities Neuromuscular Re-Ed Hot or Cold Pack Therapeutic Exercise Therapeutic Activities Orthotic Mgmt and Training WHO w/o joints CF Advance Directives Directive Yes / No Effective Date File Name No Information Encounters Encounter Description Practice Location Reason(s) For Visit Diagnoses Date Provider Providers Copied on Encounter [facility] [employer], [id number], tel:[phone] [place] No Information 4 Raymundo Mcnally. . [facility] [employer], [id number], tel:[phone] [place] No Information 4 Raymundo Mcnally. . Referring Provider: Kathy Ramirez [address], [place], [address]. tel:[phone] [facility] [employer] [address] [place] [address], [place], [place], [id number], tel:[phone] [place] No Information 4 Raymundo Mcnally. . Referring Provider: Kathy Ramirez [address], [place], [address]. tel:[phone] [place] [address], [address], [place], [place], [id number], [place] tel:[phone] [place] No Information 0- 4 Raymundo Dali. . Referring Provider: Cheng Ferrera, Deedee[address] [facility] [address], [place], [address]. tel:[phone] [place] [address], [address], [place], [place], [id number], [place] tel:[phone] [place] No Information 4 Raymundo Dali. . Referring Provider: Cheng Ferrera, Kathy [facility] [address], [place], [address]. tel:[phone] [place] [address] [address], [place], [place], [id number], [place] tel:[phone] [place] No Information 0 - 4 Raymundo Dali. . Referring Provider: Cheng Ferrera, Kathy [facility] [address], [place], [address]. tel:[phone] [place] [address] [address], [place], [place], [id number], [place] tel:[phone] [place] No Information 2 4 Raymundo Dali. . Referring Provider: Cheng Ferrera, Kathy [facility] [address], [place], [address]. tel:[phone] [place] [address] [address], [place], [place], [id number], [place] tel:[phone] [place] No Information 3 Raymundo Dali. . Referring Provider: Deedee Ramirez[address] [facility] [address], [place], [address]. tel:[phone] [place] [address], [place], [place], [address], [place] tel:[phone] [place] No Information Dec-2 3 Raymundo Dali. . Referring Provider: Cheng Ferrera, Deedee[address] [facility] [address], [place], [address]. tel:[phone] [place] [address], [address], [place], [place], [address], [place] tel:[phone] [place] No Information Dec-2 0- 3 Raymundo Dali. . Referring Provider: Cheng Ferrera, Deedee[address] [facility] [address], [place], [address]. tel:[phone] [place] [address], [address], [place], [place], [address], [place] tel:[phone] [place] No Information Dec-1 3 Raymundo Dali. . Referring Provider: Cheng Ferrera, Kathy [facility] [address], [place], [address]. tel:[phone] [place] [address], [address], [place], [place], [id number], [place] tel:[phone] [place] No Information Dec-1 3 Raymundo Dali. . Referring Provider: Cheng Ferrera, Kathy [facility] [address], [place], [address]. tel:[phone] [place] [address], [address], [place], [place], [id number], [place] tel:[phone] [place] No Information Dec-1 2- 3 Raymundo Dali. . Referring Provider: Cheng Ferrera, [address], [place], [address]. tel:[phone] [place] [address], [address], [place], [place], [id number], [place] tel:[phone] [place] No Information Dec-0 8- 3 Raymundo Mcnally. . Referring Provider: Cheng Ferrera, [address] [facility] [address], [place], [address]. tel:[phone] [facility], [address] [address], [place], [place], [id number], tel:[phone] [place] No Information Dec-0 3 Raymundo Mcnally. . Referring Provider: Cheng Ferrera, [address] [facility] [address], [place], [address]. tel:[phone] [facility], [address] [address], [place], [place], [id number], tel:[phone] [facility] No Information Dec-0 - 3 [place]. . Referring Provider: Cheng Ferrera, [address] [facility] [address], [place], [address]. tel:[phone] Family History Family Member Type Diagnosis Age At Onset No Information Payers Payer name Insurance type Covered green party ID Authoriza tion(s) [facility] [id number] Social History Type Description Quantity Date Captured [...]
--- OUTSIDE RECORDS SUMMARY | 2024-12-06 19:23 | XMS_ITS | Encounter Summary ---
Author Organization [facility] Address [address] [place] [address] Phone Care Team Providers Care Tool Maker Bench Name Role Phone Tristian Reed DO Primary Care Provider [phone] Encounter Details Date Type Department Care Team [...] on file Legal Sex Female 3:52 AM EMPLOYEE ADVISER Gender Identity Female 05/24/2022 8:12 PM EMPLOYEE ADVISER Sexual Orientation Straight 05/24/2022 8: 12 PM EMPLOYEE ADVISER documented as of this encounter Plan of Treatment Not on file documented as of this encounter Procedures Procedure Name Priority Date/Time Associated Diagnosis Comments SCAN - RADIOLOGY/IMAGING 06/13/2023 documented in this encounter Results * SCAN - RADIOLOGY/IMAGING (06/13/2023) Anatomical Region Laterality Modality Other us Provider Scanning Final Result documented in this encounter Visit Diagnoses Not on filedocumented in this encounter Care Teams Tool Maker Bench Relationship Specialty Start Date End Date Tristian Reed DO PCP - General Internal Medicine 09/22/21 documented as of this encounter
--- OUTSIDE RECORDS SUMMARY | 2024-12-06 19:23 | XMS_ITS | Encounter Summary ---
Author Organization [facility] Address [address] [place] [address] Phone Care Team Providers Care Automobile Or Truck Rental Dispatcher Name Role Phone Tristian Reed DO Primary Care Provider [phone] Encounter Details Date Type Department Care Team [...] on file Legal Sex Female 3:52 AM ELECTRIC WIRER Gender Identity Female 05/24/2022 8:12 PM ELECTRIC WIRER Sexual Orientation Straight 05/24/2022 8: 12 PM ELECTRIC WIRER documented as of this encounter Functional Status * Audit-C Score Answer Date of Assessment Author 0 05/03/2023 11:36 AM ELECTRIC WIRER Lyndsay Potter RN * Question Answer Date of Assessment Author Q1: How often do you have a drink containing alcohol? Never 05/03/2023 11:36 AM ELECTRIC WIRER Lyndsay Potter RN Q2: How many drinks [...] on filedocumented in this encounter Care Teams Automobile Or Truck Rental Dispatcher Relationship Specialty Start Date End Date Tristian Reed DO PCP - General Internal Medicine 09/22/21 documented as of this encounter
--- OUTSIDE RECORDS SUMMARY | 2024-12-06 19:23 | XMS_ITS | Clinical Summary ---
Author Organization [facility] Address [address] [place] [address] Care Team Providers Care Tufter Hand Name Role Phone Tristian Reed DO Primary Care Provider [phone] Encounters Date Type Department Care Team Description 10/22/2024 12:51 PM CDT - 10/22/2024 11:59 PM CDT Hospital Encounter [place] [address] [place], [place] [id number] Gladys Barnes MD Discharge Disposition: Home or [...] this topic Medical Devices Implanted Type Area Perfusionist Device Identifier Shelf Expiration Date Model / Serial / Lot Right Renal Embolization Coil-08/28/2024 Implanted:Qty: 1 on 08/28/2024 Coil Right: Kidney Milk [employer] / / Description:MR CONDITIONAL [...] 8:30 AM Narrative 11/05/2024 9:46 AM CDT [facility] [address] [place], [place] [address] Examination: MR abdomen without and with contrast. [...] Procedure Note Natalya Mckeon MD - 11/05/2024 [facility] [address] [place], [place] [address] Examination: MR abdomen without and with contrast. [...] from Last 3 Months Insurance Care Teams Tufter Hand Relationship Specialty Start Date End Date Tristian Reed DO [address] [facility] [address] [place] [address] PCP - General INTERNAL MEDICINE 10/22/24
[2024-12-06] MEDS: MAGNESIUM SULF 2 GM/WATER 50ML 2 GM/50 ML BAG IVPB (19:46)
[2024-12-06] MEDS: SODIUM CHLORIDE 0.9% IV 1,000 ML 999 ML IV CONT (19:46)
[2024-12-06] MEDS: PROCHLORPERAZINE EDISYLATE 10 MG/2 ML VIAL IV PUSH (19:50)
[2024-12-06] MEDS: KETOROLAC 15 MG/ML VIAL (*BKC) IV PUSH (19:52)
[2024-12-06 20:53] LABS: Troponin I < 0.012 ng/mL (0.000-0.034)
== END 2024-12-06 21:40 | disposition home or self-care (01) ==
PROVIDERS: Emergency Medicine; Physician Assistant; Emergency Provider Student in an Organized Health Care Education/Training Program; PCP Nurse Practitioner
DX: G44.009 Cluster headache syndrome, unspecified, not intractable (principal); I10 Essential (primary) hypertension; R07.9 Chest pain, unspecified; E78.5 Hyperlipidemia, unspecified
CPT/HCPCS: 36415; 70450; 71046; 80053; 83690; 84484; 85025; 85380; 85610; 85652; 85730; 86140; 93005; 96365; 96375; 99285; J0780; J1200; J1885; J3475; J7030

== ENCOUNTER 2025-01-23 10:04 | Outpatient (CLI) | payer OTHER, SELFPAY ==
--- OUTSIDE RECORDS SUMMARY | 2025-01-23 10:23 | XMS_ITS | Encounter Summary ---
Author Organization [facility] Address [address] [place] [address] Phone Care Team Providers Care Inspector Shells Name Role Phone Tristian Reed DO Primary Care Provider +1- [phone] Encounter Details Date Type Department Care Team [...] on file Legal Sex Female 3:52 AM MARKETING STRATEGIST Gender Identity Female 05/24/2022 8:12 PM MARKETING STRATEGIST Sexual Orientation Straight 05/24/2022 8: 12 PM MARKETING STRATEGIST documented as of this encounter Plan of Treatment Not on file documented as of this encounter Procedures Procedure Name Priority Date/Time Associated Diagnosis Comments SCAN - RADIOLOGY/IMAGING 07/25/2023 documented in this encounter Results * SCAN - RADIOLOGY/IMAGING (07/25/2023) Anatomical Region Laterality Modality Other us Provider Scanning Final Result documented in this encounter Visit Diagnoses Not on filedocumented in this encounter Care Teams Inspector Shells Relationship Specialty Start Date End Date Tristian Reed DO PCP - General Internal Medicine 09/22/21 documented as of this encounter
--- OUTSIDE RECORDS SUMMARY | 2025-01-23 10:23 | XMS_ITS | Encounter Summary ---
Author Organization [facility] Address [address] [place] [address] Phone Care Team Providers Care High Lead Yarder Name Role Phone Tristian Reed DO Primary Care Provider +1- [phone] Encounter Details Date Type Department Care Team (Late st Contact Info) Description 12/06/2024 Results Follow-Up [facility] Medicine Neuro Muscle [address] [facility] 6th [place] [address] [place] [address] Erick Madrid MD [address] [facility] [address] [place], [place] [id number] Vitamin B12, Copper, serum, Methylmalonic acid, serum, [...] on file Legal Sex Female 3:52 AM RN OPERATING ROOM Gender Identity Female 05/24/2022 8:12 PM RN OPERATING ROOM Sexual Orientation Straight 05/24/2022 8: 12 PM RN OPERATING ROOM documented as of this encounter Plan of Treatment Not on file documented as of this encounter Visit Diagnoses Not on filedocumented in this encounter Care Teams High Lead Yarder Relationship Specialty Start Date End Date Tristian Reed DO PCP - General Internal Medicine 09/22/21 documented as of this encounter
--- OUTSIDE RECORDS SUMMARY | 2025-01-23 10:23 | XMS_ITS | Encounter Summary ---
Author Organization [facility] Address [address] [place] [address] Phone Care Team Providers Care Rubber Compounder Mixer Name Role Phone Tristian Reed DO Primary Care Provider +1- [phone] Encounter Details Date Type Department Care Team [...] on file Legal Sex Female 3:52 AM DRY HOUSE ATTENDANT Gender Identity Female 05/24/2022 8:12 PM DRY HOUSE ATTENDANT Sexual Orientation Straight 05/24/2022 8: 12 PM DRY HOUSE ATTENDANT documented as of this encounter Functional Status * AUDIT-C Score Answer Date of Assessment Author 0 05/03/2023 11:36 AM DRY HOUSE ATTENDANT Lyndsay Potter RN * Question Answer Date [...] on filedocumented in this encounter Care Teams Rubber Compounder Mixer Relationship Specialty Start Date End Date Tristian Reed DO PCP - General Internal Medicine 09/22/21 documented as of this encounter
--- OUTSIDE RECORDS SUMMARY | 2025-01-23 10:23 | XMS_ITS | Encounter Summary ---
Author Organization [facility] Address [address] [place] [address] Phone Care Team Providers Care Guard Rail Installer Name Role Phone Tristian Reed DO Primary Care Provider +1- [phone] Encounter Details Date Type Department Care Team [...] on file Legal Sex Female 3:52 AM BRICK CLEANER Gender Identity Female 05/24/2022 8:12 PM BRICK CLEANER Sexual Orientation Straight 05/24/2022 8: 12 PM BRICK CLEANER documented as of this encounter Plan of Treatment Not on file documented as of this encounter Procedures Procedure Name Priority Date/Time Associated Diagnosis Comments SCAN - RADIOLOGY/IMAGING 06/13/2023 documented in this encounter Results * SCAN - RADIOLOGY/IMAGING (06/13/2023) Anatomical Region Laterality Modality Other us Provider Scanning Final Result documented in this encounter Visit Diagnoses Not on filedocumented in this encounter Care Teams Guard Rail Installer Relationship Specialty Start Date End Date Tristian Reed DO PCP - General Internal Medicine 09/22/21 documented as of this encounter
--- OUTSIDE RECORDS SUMMARY | 2025-01-23 10:23 | XMS_ITS | Clinical Summary ---
Author Organization [facility] Address [address] [place] [address] Care Team Providers Care Clerk Of Court Name Role Phone Tristian Reed DO Primary Care Provider +1- [phone] Allergies No known active allergies Medications levothyroxine (SYNTHROID) 25 mcg tablet levothyroxine 25 mcg tablet TAKE 1 TABLET BY MOUTH EVERY DAY Active valACYclovir (VALTREX) 1 gram tablet valacyclovir 1 gram tablet take 1 tablet by oral route every 12 hours x 5 days with flare up. PRN Active cholecalcifero l (VITAMIN D-3) 25 mcg (1,000 unit) tablet Take 1 tablet (1,000 Units total) by mouth 2 (two) times a week Active omeprazole (PriLOSEC) 40 mg capsule 3 Active Botox 200 unit recon soln 3 Active cyclobenzaprin e (FLEXERIL) 10 mg tablet Take 1 tablet (10 mg total) by mouth 3 (three) times a day as needed for muscle spasms Active naratriptan (AMERGE) 2.5 mg tabletIndicati ons:Migraine Take 1 tablet (2.5 mg total) by mouth once as needed for migraine May repeat in 4 hours if unresolved. Do not exceed 5 mg in 24 hours. 9 tablet 3 5 10/24/19 26 Active duloxetine HCl (DULOXETINE ORAL) Take 20 mg by mouth Active amLODIPine (NORVASC) 10 mg tablet 5 Active atorvastatin (LIPITOR) 40 mg tablet 5 Active pregabalin (LYRICA) 50 mg capsule 5 Active Hospital, Clinic, or Other Facility Administered Medication [...] Overview (05/02/2023): Decreased libido;Recorded Elsewhere: No Location: [facility] Source: EHR Chronic: N Practice ID: [id number] Billable Time: 09:45:00 AM Superficial dyspareunia 07/25/2019 Overview (05/02/2023): Superficial (introital) dyspareunia;Practice ID: [id number] Leukocytosis 07/25/2019 Overview (05/02/2023): Elevated white blood cell count, unspecified;Practice ID: [id number] High blood leukocyte count 07/25/2019 Overview (11/12/2024): Elevated white blood cell count, unspecified;Practice ID: [id number] Encounters Date Type Department Care Team Description 01/14/2025 3:00 PM CDT Office Visit [address] 13th [place] [address] [place] [address] Everton De Santiago MD Age-related osteoporosis without current pathological fracture (Primary Dx) 01/14/2025 2:30 PM CDT Clinical Support [address] [place] [address] [place] [address] Age-related osteoporosis without current pathological fracture 01/14/[address] [place] [address] [place] [address] Everton De Santiago MD Treatment Plan Update (New prolia) 01/07/[address] [place] [address] [place] [address] Wale Quinones NP 12/06/2024 Results Follow-Up [facility] Neuro Muscle [address] [place] [address] [place] [address] [place] [address] Erick Madrid MD Vitamin B12, Copper, serum, Methylmalonic acid, serum, Creatine kinase (CK), total 12/03/2024 1:40 PM CDT Lab [facility] ([facility]) [address] [place] [address] Muscle weakness 12/03/2024 10:00 AM CDT Office Visit [facility] Neuro Muscle [address] [place] [address] 6th [place] [address] [place] [address] Erick Madrid MD Muscle weakness (Primary Dx) 11/12/2024 12:00 PM CDT Office Visit [facility] Radiology, Interventional Radiology [address] [facility] [address] [place] [address] Weston Barnes MD Angiomyolipoma (Primary Dx) 11/09/2024 Orders Only [facility] General Neurology [address] [place] [address] Sherry Cruz Intractable chronic migraine without aura and without status migrainosus (Primary Dx) 11/07/2024 Orders Only [facility] General Neurology [address] [place] [address] Annmarie Holloway PA Generalized muscle weakness (Primary Dx); Muscle weakness 10/25/2024 2:30 PM CDT Procedure visit [facility] General Neurology [address] [place] [address] Cheng Stanley MD Intractable chronic migraine without aura and without status migrainosus (Primary Dx) 10/23/2024 9:49 PM CDT - 10/23/2024 11:59 PM CDT Hospital Encounter [facility] ([facility]) [address] [place] [address] Discharge Disposition: Discharge to home or self care 10/23/2024 3:30 PM CDT Office Visit [facility] General Neurology [address] [place] [address] Annmarie Holloway PA Muscle weakness (Primary Dx); Intractable chronic migraine without aura and without status migrainosus from Last 3 Months Surgical History Surgery [...] on file Legal Sex Female 3:52 AM PANTRY CHEF Gender Identity Female 05/24/2022 8:12 PM PANTRY CHEF Sexual Orientation Straight 05/24/2022 8: 12 PM PANTRY CHEF Obstetrics History Last Filed Vital Signs Vital Sign Reading Time Taken Comments Blood Pressure 133/86 12/03/2024 9:46 AM CDT Pulse 94 12/03/2024 9:46 AM CDT Temperature 36.9 C (98.4 F) 10/25/2024 2:20 PM CDT Respiratory Rate 18 08/29/2024 8:05 AM CDT Oxygen Saturation 98% 10/25/2024 2:20 PM CDT Inhaled Oxygen Concentration - - Weight 51.7 kg (114 lb) 01/14/2025 2:29 PM CDT Height 162.6 cm (5' 4) 01/14/2025 2:29 PM CDT Body Mass Index 19.57 01/14/2025 2:29 PM CDT Plan of Treatment Health Maintenance [...] this topic Medical Devices Implanted Type Area Drop Worker Device Identifier Shelf Expiration Date Model / Serial / Lot Shi & Nephew/Richco/Or tho Plate Std 48mm 3 Hole Evos Bone Radial Right Distal Volar [id number] - [id number] Implanted:Qty: 1 on 05/03/2023 by Cheng Ferrera MD at [facility] Right: Radius [employer]Rich[employer]/Or tho [id number] / / [employer]hew/Richco/Or tho Evos Mini 2mm 3.3mm 10mm Lock Levelman Long Bone Small Bone T6 [id number] - [id number] Implanted:Qty: 1 on 05/03/2023 by Cheng Ferrera MD at [facility] Right: Radius [employer]/Richco/Or tho [id number] / / [employer]hew/Richco/Or tho Evos Mini 36l3-43.3x1.2mm 71mm 3 Hole Head 5 Hole Shaft Variable [id number] - [id number] Implanted:Qty: 1 on 05/03/2023 by Cheng Ferrera MD at [facility] Right: Radius [employer]/Rich[employer]/Or tho [id number] / / [employer]hew/Richco/Or tho Evos Mini 2mm 3.3mm 20mm Lock Long Bone Small Bone T6 Screw Bone [id number] - [id number] Implanted:Qty: 1 on 05/03/2023 by Cheng Ferrera MD at [facility] Right: Radius [employer]/Richco/Or tho [id number] / / [employer]hew/Rich[employer]/Or tho Evos Mini 2.4mm 3.8mm 12mm Self Tap Levelman Long Bone Small Bone [id number] - [id number] Implanted:Qty: 2 on 05/03/2023 by Cheng Ferrera MD at [facility] Right: Radius [employer]/Rich[employer]/Or tho [id number] / / [employer]hew[employer]Richco/Or tho 2.4mm 3.8mm 10mm Self Retaining Screwdriver Self Tap Flat Head [id number] - [id number] Implanted:Qty: 1 on 05/03/2023 by Cheng Ferrera MD at [facility] Right: Radius [employer]Rich[employer]/Or tho [id number] / / [employer]hew[employer]Rich[employer]/Or tho Evos Mini 2.4mm 3.8mm 14mm Lock Long Bone Small Bone T7 Screw [id number] - [id number] Implanted:Qty: 2 on 05/03/2023 by Cheng Ferrera MD at [facility] Right: Radius [employer]/Rich[employer]/Or tho [id number] / / [employer]hew[employer]Rich[employer]/Or tho Evos Mini 2.4mm 3.8mm 17mm Lock Long Bone Small Bone T7 Screw [id number] - [id number] Implanted:Qty: 1 on 05/03/2023 by Cheng Ferrera MD at [facility] Right: Radius [employer]hew/Richco/Or tho [id number] / / [employer]hew[employer]Richco/Or tho Evos Mini 2.4mm 3.8mm 18mm Lock Levelman Long Bone Small Bone T7 [id number] - [id number] Implanted:Qty: 1 on 05/03/2023 by Chegn Ferrera MD at [facility] Right: Radius [employer]hew/Richco/Or tho [id number] / / [employer] Nephew/Richco/Or tho 2mm 3mm 22mm Self Retaining Screwdriver Self Tap Flat Head Cortex [id number] - [id number] Implanted:Qty: 1 on 05/03/2023 by Cheng Ferrera MD at [facility] Right: Radius [employer] Nephew/Richco/Or tho [id number] / / Shi [employer] Nephew/Richco/Or tho 2mm 3mm 14mm Self Retaining Screwdriver Self Tap Flat Head Cortex [id number] - [id number] Implanted:Qty: 1 on 05/03/2023 by Cheng Ferrera MD at [facility] Right: Radius [employer]hew/Richco/Or tho [id number] / / Shi [employer] Nephew/Richco/Or tho Evos Mini 2mm 3.3mm 13mm Lock Long Bone Small Bone T6 Screw Bone [id number] - [id number] Implanted:Qty: 1 on 05/03/2023 by Cheng Ferrera MD at [facility] Right: Radius Shi [employer] Nephew/Richco/Or tho [id number] / / [employer] Embosphere Prefill Saline Syringe Compressible Nonaggregate S420gh - [id number] Implanted:Qty: 1 on 08/28/2024 at [facility] [employer] Systems 04/07/2027 [id number] / / [id number] [place] Scientific Thanh Coil Emolization Coated Detachable [place] Tungsten Embold [id number] - [id number] Implanted:Qty: 1 on 08/28/2024 at [facility] [employer] Scientific Thanh 10/26/2026 [id number] / / [id number] [employer] Medical Thanh Angio-Seal Vip 6fr Closere Device [id number] - [id number] Implanted:Qty: 1 on 08/28/2024 at [facility] TerUro Jock 03/30/2025 [id number] / / [id number] Explanted Type Area Drop Worker Device Identifier Shelf Expiration Date Model / Serial / Lot [employer] Olga .062in 4in Trocar Point Both Ends Orthopedic Wire 1600-462ns - [id number] Explanted:Qty: 1 on 05/03/2023 at [facility] Right: Radius [employer] [id number] / / [employer] Olga .045in 4in 2 [place] End No Thread Standard Wire 1600-445 - [id number] Explanted:Qty: 2 on 05/03/2023 at [facility] Right: Radius [employer] [id number] / / Procedures Procedure Name Priority Date/Time Associated Diagnosis Comments DEXA TBS AXIAL SKELETON BONE DENSITY 1 OR MORE SITES Schedule Routine, Read Routine (OP Routine) 01/14/2025 2:20 PM CDT Age-related osteoporosis without current pathological fracture CREATINE KINASE (CK), TOTAL Routine 12/03/2024 12:17 PM CDT Muscle weakness METHYLMALONIC ACID, SERUM Routine 12/03/2024 12:17 PM CDT Muscle weakness COPPER, SERUM Routine 12/03/2024 12:17 PM CDT Muscle weakness VITAMIN B12 Routine 12/03/2024 12:17 PM CDT Muscle weakness MR BODY OUTSIDE REFERENCE Routine 10/23/2024 9:49 PM CDT from Last 3 Months Results * Dexa TBS Axial Skeleton Bone Density 1 or more sites (01/14/2025 2:20 PM CDT) Anatomical Region Laterality Modality Wrist, Body N/A Radiographic Apoorva ging Narrative 01/14/2025 2:40 PM CDT Patient Name: Aniya Browning Date of : 1965 Date of scan: 01/14/2025 Bone mineral density was performed on a HoloJoosy Discovery Densitometer. Based on machine cross-calibration and precision studies the least significant changes of this densitometer is 0.024 g/cm2 at the spine, 0.020 g/cm2 at the total proximal femur, and 0.014g/cm2 at the forearm. HISTORY: This is a 59 y.o. postmenopausal female with a history of osteoporosis and thyroid disease. She reports that she has never smoked. She has never used smokeless tobacco. Currently on treatment with calcium, vitamin D, and thyroid hormone, previously treated with abaloparatide (Tymlos), and current complaint of back pain, neck pain, and leg pain. INDICATIONS: Menopause status, history of prior wrist fracture, and history of osteoporosis. FINDINGS: BONE MINERAL DENSITY OF THE LUMBAR SPINE Bone Mineral Density (BMD) of the lumbar spine was measured from L1-L4 and the average density was calculated to be 0.626 gm/cm2. This corresponds to a T-score (standard deviations from the mean of young adults) of -3.8. When compared to the previous study of 12/13/2023 there has been no significant changes in bone density. BONE MINERAL DENSITY OF THE PROXIMAL FEMUR Bone Mineral Density (BMD) of the left hip total was found to be 0.596 gm/cm2. This corresponds to a T-score standard deviations from the mean of young adults of -2.8. Femoral neck is 0.520 gm/cm2 with a T-score (standard deviations from the mean of young adults) of -3.0. When compared to the previous study of 12/13/2023 there has been no significant changes in bone density. BONE MINERAL DENSITY OF THE FOREARM Bone Mineral density (BMD) of the left proximal 1/3 of the radius measures 0.532 gm/cm2. This corresponds to a T-score (standard deviations from the mean of young adults) of -2.7. When compared to the previous study of 12/13/2023 there has been no significant changes in bone density. A forearm bone density study was performed in addition to the routine study because of the need to provide a comparison to the previous exam . SUMMARY: Bone mineral density shows evidence of osteoporosis and marked increase risk of fracture. There has been no significant changes in bone density since previous measurement. The lumbar spine Trabecular Bone Score is 1.255 which suggests partially degraded bone microarchitecture compared to the general population. Final decisions regarding diagnostic or therapeutic recommendations should include BMD, TBS, additional clinical risk factors as well the clinical context of the patient. Please see attached TBS results for further details. ADDITIONAL COMMENTS: Postmenopausal Women and Men Over 50: Diagnostic criteria: Osteoporosis: BMD at or below -2.5 T-score; Osteopenia (low bone mass): BMD between -1.0 and -2.5 T-score. If the patient has a history of a fragility fracture, a fracture that occurred with trauma equivalent to a fall from a standing position or less, then the diagnosis is osteoporosis regardless of bone density. The history and data sections of the bone mineral density scan were prepared by Loren Marion) AMANDA who is accredited by the International Society of Clinical Densitometry. The overall patient assessment and scan interpretation were performed by Everton De Santiago MD who is certified by the International Society of Clinical Densitometry. CAM [id number] us Wale Quinones NP IMG DXA PROCEDURES Edited Res ult - Final * (ABNORMAL) Methylmalonic acid, serum (12/03/2024 12:17 [...] Food and Drug Administration. Test Performed by: [place] [address] [employer]: Miguel Martínez Ph.D.; CLIA# [id number] Blood 12/03/2024 12:1 7 PM CDT 12/03/2024 3:03 PM CDT us Erick Madrid MD LAB BLOOD ORDERABLES Fin al Result LYLE HANKINS [facility] Department [place] [address] [place] ref Lab * Copper, serum (12/03/2024 12:17 PM CDT) Copper 127 77 - 206 mcg/dL [facility] ref Lab Comment: ADDITIONAL INFORMATION This test was developed and its performance characteristics determined by [facility] in a manner consistent with CLIA requirements. This test has not been cleared or approved by the U.S. Food and Drug Administration. Test Performed by: [facility] [place] [address] [employer]: Miguel Martínez Ph.D.; CLIA# [id number] Blood 12/03/2024 12:1 7 PM CDT 12/03/2024 12:42 PM CDT Erick Madrid MD LAB BLOOD ORDERABLES Fin al Result Performing Organization Address [facility] Co de Phone Number [facility] [place] [address] [facility] * Vitamin B12 (12/03/2024 12:17 PM CDT) Vitamin B12 460 230 - 1,250 pg/mL Blood 12/03/2024 12:1 7 PM CDT 12/03/2024 12:37 PM CDT Erick Madrid MD LAB BLOOD ORDERABLES Fin al Result Performing Organization Address [facility] de Phone Number [facility] [place] [address] * Creatine kinase (CK), total (12/03/2024 12:17 PM CDT) CK 164 30 - 200 Units/L Blood 12/03/2024 12:1 7 PM CDT 12/03/2024 12:37 PM CDT Erick Madrid MD LAB BLOOD ORDERABLES Fin al Result Performing Organization Address [facility] Co de Phone Number [facility] [place] [address] * MR Body Outside Reference (10/23/2024 9:49 PM CDT) Impressions ALYSEBJIzaiah - 10/23/2024 9:49 PM CDT These images are for Reference purposes only and have not been reviewed by [facility]. There will be no report generated by a [facility] Radiologist. Narrative RAD_FARAZ[facility] - 10/23/2024 9:49 PM CDT EXAMINATION: Images For Reference Purposes Only us Weston Barnes MD IMG MRI PROCEDURES Final R esult RAD_PACS_[facility] from Last 3 Months Insurance [facility] CHOICE PLUS MEDICARE [facility] CHOICE PLUS [facility] CHOICE PLUS [place] [id number] [place] [address] Advance Directives For more information, please contact: [phone] * Full Code (Latest Code Status on File) Date Activated Date Inactivated Comments 08/28/2024 8:12 AM 08/29/2024 3:34 PM Care Teams Clerk Of Court Relationship Specialty Start Date End Date Tristian Reed DO PCP - General Internal Medicine 09/22/21
--- OUTSIDE RECORDS SUMMARY | 2025-01-23 10:23 | XMS_ITS | Encounter Summary ---
Author Organization [facility] Address [address] [place] [address] Phone Care Team Providers Care Baggage Clerk Name Role Phone Tristian Reed DO Primary Care Provider +1- [phone] Encounter Details Date Type Department Care Team [...] on file Legal Sex Female 3:52 AM TRANSITION OF CARE SPECIALIST Gender Identity Female 05/24/2022 8:12 PM TRANSITION OF CARE SPECIALIST Sexual Orientation Straight 05/24/2022 8: 12 PM TRANSITION OF CARE SPECIALIST documented as of this encounter Plan of Treatment Not on file documented as of this encounter Procedures Procedure Name Priority Date/Time Associated Diagnosis Comments SCAN - RADIOLOGY/IMAGING 10/08/2022 documented in this encounter Results * SCAN - RADIOLOGY/IMAGING (10/08/2022) Anatomical Region Laterality Modality Other us Provider Scanning Final Result documented in this encounter Visit Diagnoses Not on filedocumented in this encounter Care Teams Baggage Clerk Relationship Specialty Start Date End Date Tristian Reed DO PCP - General Internal Medicine 09/22/21 documented as of this encounter
--- OUTSIDE RECORDS SUMMARY | 2025-01-23 10:23 | XMS_ITS | Encounter Summary ---
Author Organization [facility] Address [address] [place] [address] Phone Care Team Providers Care Mine Expert Name Role Phone Tristian Reed DO Primary Care Provider [phone]- [phone] Reason for Visit * Reason Onset Date Comments Treatment Plan Update 01/14/2025 New prolia Encounter Details Date Type Department Care Team (Late st Contact Info) Description 01/14/2025 Telephone [facility] [address] [facility] 13th [place] [address] [place] [address] Everton De Santiago MD [address] [address] Treatment Plan Update (New prolSunEdison) Social History Tobacco Use Types Packs/Day Years [...] on file Legal Sex Female 3:52 AM TRUSS DRIVER HELPER Gender Identity Female 05/24/2022 8:12 PM TRUSS DRIVER HELPER Sexual Orientation Straight 05/24/2022 8: 12 PM TRUSS DRIVER HELPER documented as of this encounter Miscellaneous Notes * Telephone Encounter - Penelope Hernandez CMA - 01/14/2025 3:49 PM CDT New prolia Per Dr. De Santiago Labs to be completed To be done at [facility] Therapy plan is in the chart. Please send appointment request when labs and insurance are completed. * Telephone Encounter - Penelope Hernandez CMA - 01/14/2025 3:48 PM CDT Patient was seen by Dr. De Santiago today for an office visit. The following was recommended for the patient [facility]. 6 month follow up with [facility]. documented in this encounter Plan of Treatment Not on file documented as of this encounter Visit Diagnoses Not on filedocumented in this encounter Care Teams Mine Expert Relationship Specialty Start Date End Date Tristian Reed DO PCP - General Internal Medicine 09/22/21 documented as of this encounter
--- OUTSIDE RECORDS SUMMARY | 2025-01-23 10:24 | XMS_ITS | Encounter Summary ---
Author Organization [facility] Address [address] [place] [address] Phone Care Team Providers Care Transit Specialist Name Role Phone Tristian Reed DO Primary Care Provider [phone]- [phone] Encounter Details Date Type Department Care Team [...] on file Legal Sex Female 3:52 AM SENIOR DIRECTOR FINANCE Gender Identity Female 05/24/2022 8:12 PM SENIOR DIRECTOR FINANCE Sexual Orientation Straight 05/24/2022 8: 12 PM SENIOR DIRECTOR FINANCE documented as of this encounter Plan of Treatment Not on file documented as of this encounter Procedures Procedure Name Priority Date/Time Associated Diagnosis Comments SCAN - RADIOLOGY/IMAGING 05/16/2023 documented in this encounter Results * SCAN - RADIOLOGY/IMAGING (05/16/2023) Anatomical Region Laterality Modality Other us Provider Scanning Final Result documented in this encounter Visit Diagnoses Not on filedocumented in this encounter Care Teams Transit Specialist Relationship Specialty Start Date End Date Tristian Reed DO PCP - General Internal Medicine 09/22/21 documented as of this encounter
--- NOTE | 2025-01-23 10:41 | EST_ITS ---
Patient Info Name: Aniya Ann Age: 59 years : 1965 Gender: Female Ht: 64 in Wt: 115 lbs BSA: 1.53 m2 HR: 87 bpm BP: 126 / 83 mmHg Exam Date: 01/23/2025 10:41 AM Patient Status: O Admit Date: 01/23/2025 Exam Type: CA stress test treadmill A treadmill exercise stress test was performed. Staff Attending Provider: Madeline Maya Exercise Technologist: Tasha Mendosa Exercise Physician: Ryan Mosher DO Summary 1. 1. Negative Vijay exercise stress test for ischemic ST changes by ECG criteria. 2. 2. Reduced functional capacity, achieving 7.7 METs of workload. 3. 3. Appropriate HR response to exercise. 4. 4. Appropriate HR recovery at 1 minute post exercise. 5. 5. No imaging with stress testing. 6. 6. Patient informed of the above results. Protocol: Vijay Stress ECG Details Stage: REST Duration (min): 4 min : 45 sec Speed (mph): 0.0 Grade (%): 0 HR (bpm): 86 SBP (mmHg): 126 DBP (mmHg): 83 METS: --- Stage: REST Duration (min): 6 min : 50 sec Speed (mph): 0.0 Grade (%): 0 HR (bpm): 92 SBP (mmHg): 126 DBP (mmHg): 83 METS: --- Stage: STAGE 1 Duration (min): 1 min : 0 sec Speed (mph): 1.7 Grade (%): 10 HR (bpm): 105 SBP (mmHg): 126 DBP (mmHg): 83 METS: --- Stage: STAGE 1 Duration (min): 2 min : 0 sec Speed (mph): 1.7 Grade (%): 10 HR (bpm): 114 SBP (mmHg): 126 DBP (mmHg): 83 METS: --- Stage: STAGE 1 Duration (min): 3 min : 0 sec Speed (mph): 1.7 Grade (%): 10 HR (bpm): 118 SBP (mmHg): 112 DBP (mmHg): 73 METS: --- Stage: STAGE 2 Duration (min): 1 min : 0 sec Speed (mph): 2.5 Grade (%): 12 HR (bpm): 121 SBP (mmHg): 112 DBP (mmHg): 73 METS: --- Stage: STAGE 2 Duration (min): 2 min : 0 sec Speed (mph): 2.5 Grade (%): 12 HR (bpm): 126 SBP (mmHg): 114 DBP (mmHg): 72 METS: --- Stage: STAGE 2 Duration (min): 3 min : 0 sec Speed (mph): 2.5 Grade (%): 12 HR (bpm): 130 SBP (mmHg): 114 DBP (mmHg): 72 METS: --- Stage: STAGE 3 Duration (min): 0 min : 28 sec Speed (mph): 3.4 Grade (%): 14 HR (bpm): 132 SBP (mmHg): 114 DBP (mmHg): 72 METS: --- Stage: RECOVERY Duration (min): 0 min : 31 sec Speed (mph): 0.0 Grade (%): 0 HR (bpm): 133 SBP (mmHg): 116 DBP (mmHg): 76 METS: --- Stage: RECOVERY Duration (min): 1 min : 31 sec Speed (mph): 0.0 Grade (%): 0 HR (bpm): 110 SBP (mmHg): 116 DBP (mmHg): 76 METS: --- Stage: RECOVERY Duration (min): 2 min : 31 sec Speed (mph): 0.0 Grade (%): 0 HR (bpm): 101 SBP (mmHg): 116 DBP (mmHg): 76 METS: --- Stage: RECOVERY Duration (min): 3 min : 31 sec Speed (mph): 0.0 Grade (%): 0 HR (bpm): 94 SBP (mmHg): 134 DBP (mmHg): 80 METS: --- Stage: RECOVERY Duration (min): 4 min : 31 sec Speed (mph): 0.0 Grade (%): 0 HR (bpm): 92 SBP (mmHg): 134 DBP (mmHg): 80 METS: --- Stage: RECOVERY Duration (min): 4 min : 44 sec Speed (mph): 0.0 Grade (%): 0 HR (bpm): 89 SBP (mmHg): 110 DBP (mmHg): 81 METS: --- Rest HR: 92 bpm Peak HR: 133 bpm Rest Sys BP: 126 mmHg Peak Sys BP: 134 mmHg Max Pred HR: 159 bpm % Max Pred HR: 84 % Target HR: 135 bpm Max RPP: 17,822 bpm*mmHg Charles Score: 3 Termination Reason: Reached target heart rate or workload Cardiac Symptoms: Shortness of breath Max ST Seg Deviation: 0.70 mm Total Time: 6 min : 28 sec Rest No BP: 83 mmHg Peak No BP: 80 mmHg Angina Score: None Total METS: 7.7 Resting ECG Sinus rhythm. Stress ECG No ST changes. Arrhythmias None. Report Signatures
== END 2025-01-23 10:05 | disposition home or self-care (01) ==
LOC: ANHCARD 10:06
PROVIDERS: PCP Nurse Practitioner; Visit Provider Nurse Practitioner
DX: R06.00 Dyspnea, unspecified (principal); R07.9 Chest pain, unspecified
CPT/HCPCS: 93017

== ENCOUNTER 2025-02-11 13:06 | Outpatient (CLI) | payer OTHER, SELFPAY ==
--- NOTE | ~2025-02-11 | US_ITS ---
EXAMINATION: US soft tissue upper back DATE: 02/11/2025 13:24 INDICATION: Localized swelling, mass or lump at the posterior right upper chest TECHNIQUE: Multiple grayscale and Doppler ultrasound images of the region of consolidation at the posterior right upper chest were obtained. COMPARISON: None FINDINGS: There is a 6.7 x 6.1 x 1.2 cm ovoid subcutaneous mass with smooth well-defined margins at the region of concern left. The mass demonstrates a similar echogenicity and echotexture to the surrounding subcutaneous fat. The underlying muscular and echogenic and shadowing bones are unremarkable. IMPRESSION: 1. Nonspecific 6.7 x 6.1 x 1.2 cm subcutaneous mass at the region of concern with appearance most consistent with and statistically most likely to represent a lipoma. Reviewed, dictated and finalized at location A. IMPRESSION: 1. Nonspecific 6.7 x 6.1 x 1.2 cm subcutaneous mass at the region of concern wi appearance most consistent with and statistically most likely to represent a lipoma.
== END 2025-02-11 13:07 | disposition home or self-care (01) ==
LOC: MICIMG 13:07
PROVIDERS: PCP Nurse Practitioner; Visit Provider Nurse Practitioner
DX: R22.9 Localized swelling, mass and lump, unspecified (principal)
CPT/HCPCS: 76604

== ENCOUNTER 2025-04-25 10:45 | Outpatient (CLI) | payer OTHER, SELFPAY ==
--- NOTE | ~2025-04-25 | MMUS_ITS ---
EXAMINATION: MM diagnostic adalid BI w ivette, US breast LT limited INDICATION: 59-year old female; BI-RADS 3, short-term follow-up probably benign left breast finding. COMPARISON: 10/19/2024 through 01/31/2020 TECHNIQUE: Digital breast tomosynthesis bilateral True lateral, CC and MLO views were obtained with computer-aided detection to assist in interpretation of the study. MAMMOGRAM FINDINGS: There are scattered areas of fibroglandular density. No new suspicious mass, calcification or architectural distortion to suggest malignancy in either breast. Biopsy clip in the left breast. LEFT BREAST ULTRASOUND FINDINGS: Targeted evaluation of the area of concern was completed. 0.57 x 0.61 x 0.42 cm circumscribed hypoechoic mass at 2:00 location 1 cm from the nipple in the LEFT breast redemonstrated is Unchanged. IMPRESSION: Probable Benign LEFT breast findings is unchanged. No mammographic evidence of malignancy within the Right breast. RECOMMENDATION: 6 month follow-up LEFT breast ultrasound. BI-RADS 3, PROBABLY BENIGN Reviewed, dictated and finalized at location B. HERY HELPER IMPRESSION: Probable Benign LEFT breast findings is unchanged. No mammographic evidence of malignancy within the Right breast. RECOMMENDATION: 6 month follow-up LEFT breast ultrasound. BI-RADS 3, PROBABLY BENIGN
--- OUTSIDE RECORDS SUMMARY | 2025-04-25 13:03 | XMS_ITS | Clinical Summary ---
Author Organization [facility] Address [address] [place] [address] Care Team Providers Care Retail Assistant Store Manager Name Role Phone Tristian Reed DO Primary Care Provider [phone] Social History Tobacco Use Types Packs/Day Years [...] of 2) 12/09/2013 COVID-19 Vaccine ( - 2024-2 6 season) 2025 Influenza Adult (#1) 2025 Cervical Cancer Screening Pa p Smear (Age 30 to 64) Every 3 Years 09/18/2026 09/19/2023 Cervical Cancer Screening with HPV 09/18/2026 RSV Immunization or 60+ Years (1 - 1-dose 75+ series) 12/09/2038 Hepatitis A Vaccines Aged Out No long er eligible based on patient's age to complete this topic Meningococcal B Vaccine Aged Out No l onger eligible based on patient's age to complete this topic Meningococcal Vaccine Aged Out No ravindra timbo eligible based on patient's age to complete this topic RSV Immunizations Under 20 Months Aged Out No longer eligible based on patient's age to complete this topic Medical Devices Implanted Type Area Billet Bed Operator Device Identifier Shelf Expiration Date Model / Serial / Lot Right Renal Embolization Coil-08/28/2024 Implanted:Qty: 1 on 08/28/2024 Coil Right: Kidney [employer] / / Description:MR CONDITIONAL A T 1.5 T OR 3 T, MAX SPATIAL GRADIENT FIELD OF 4000 GAUSS/CM OR LESS, MAX WHOLE BODY MITRA OF 2 W/KG OR LESS, HEAD MITRA 3.2 W/KG OR LESS Insurance [facility] Care Teams Retail Assistant Store Manager Relationship Specialty Start Date End Date Tristian Reed DO [address] [facility] [address] [place] [address] PCP - General INTERNAL MEDICINE 10/22/24
--- OUTSIDE RECORDS SUMMARY | 2025-04-25 13:03 | XMS_ITS | Data Portability ---
Author Organization [facility] Address [address] [place] [address] Care Team Providers Care Ticket Machine Operator Name Role Phone CHRISTIANE DILEEP Primary Care Provider BUTCH MCKEON Orthopedic Surgeon Assessment Encounter Date [...] Imaging US, transvagina l 2024 025 [email or web address] [place], [address], [place], [address], 21:40:50 MAMMO, diagnostic, digital, unilateral 2024 025 [facility], [address], [place], [address], 5 14:56:35 US, pelvis, complete [email or web address] [place] [address] Ctr, [address], [place], [address], 5 10:39:09 MAMMO, screening, bilateral [address] C[address], [address], [place], [address], 4 12:53:33 MAMMO, screening, bilateral [address] C[address], [address], [place], [address], 3 13:53:37 Medication Orders hydroquinon e 4 % topical cream 2023 024 [email or web address] Not available 4 12:56:46 valacyclovi r 1 gram tablet 2022 023 DARCY [facility], [address], [address], [place], [address], 3 12:50:22 valacyclovi r 1 gram tablet 2021 022 DARCY [facility], [address], [address], [place], [address], 2 12:04:54 Patient TargetsNo targets recorded. Patient InstructionsNo instructions recorded. Reason for Referral None Reported. Results Created Date Observation Date Name Description Value Unit Range Abnormal Flag Note LastModifiedBy Organization Detail LastModifiedTime 09/04/19 22 09/03/2021 IMAGE GUIDE D PAP AND HPV REGAR DLESS image guided Pap, HPV regardless of Pap result SEE RESULT S BELOW CASE REPOR T: Cytol ogy Gynec ologi stanton Repor t Case: [id number] Autho asad martínez Provi rosa: Tamera indigo , Yolanda Guidry cted: 09/03 1552 TRIGONOMETRY TUTOR Order ing Locat ion: [place] Patho kayla Lutz paulo: 09/04 0132 First Scree n: Farhan savage, Gray ed, CT Rescr een: Sam abbasi, Jennifer michel, CT Speci men: Yael ozuna Pap - Image d, Cervi x STATE [...] as clini [place] n[place]. Not Available [facility] (Lab) [address], [place], [address], 09/10/2021 22:23:16 09/15/19 23 09/14/2022 IMAGE GUIDE D PAP AND HPV REGAR DLESS image guided Pap, HPV regardless of Pap result SEE RESULT S BELOW CASE REPOR T: Cytol ogy Gynec ologi stanton Repor t Case: [id number] Autho asad g Provi rosa: Taco Pillai Colle cted: 09/14 1546 TRIGONOMETRY TUTOR Order ing Locat ion: [place] Patho logy [...] geller alivia d by Maru Herr on 4/13/ 2023 at 6:29 PM ----- ----- ----- ----- [...] as clini [place] nted. Not Available [facility] (Lab) [address], [place], [address], 09/16/2022 19:32:36 09/19/19 24 09/19/2023 IMAGE GUIDE D PAP AND HPV REGAR DLESS image guided Pap, HPV regardless of Pap result SEE RESULT S BELOW CASE REPOR T: Cytol ogy Gynec ologi stanton Repor t Case: [id number] Autho asad martínez Provi rosa: Taco Pillai Colle cted: 09/18 0931 TRIGONOMETRY TUTOR Order ing Locat ion: [place] Patho logy [...] . COMME NT: Slide scree laine keith lly due to rejec tion by the Thinp [...] as clini nixon [place] nted. Not Available [facility] (Lab) [address], [place], [address], 09/21/2023 19:48:14 09/04/19 22 02/02/2021 MAMMO , scree sulma, bilat eral No observ ation record ed. [address] [place] [address], [address], 09/05/2021 12:25:19 05/18/20 22 05/18/2022 MAMMO , scree sulma, bilat eral No observ ation record ed. [address], [place], [address], 05/26/2022 18:31:37 02/27/20 24 02/27/2024 MAMMO , scree sulma, bilat eral No observ ation record ed. [address], [address], 03/08/2024 14:10:42 10/05/19 25 10/04/2024 US, trans vagin al No observ ation record ed. [email or web address] [place] [address], [place], [address], 10/04/2024 13:42:15 10/05/19 25 10/04/2024 US, trans vagin al No observ ation record ed. [email or web address] [address], [place], [address], 10/17/2024 14:30:35 10/05/19 25 10/04/2024 US, trans vagin al No observ ation record ed. [email or web address] Lauren [address], [place], [address], 10/17/2024 14:30:34 10/05/19 25 10/04/2024 US, trans vagin al No observ ation record ed. DARCY [place] [address], [place], [address], 10/17/2024 17:13:37 10/20/19 25 10/19/2024 MAMMO , diagn ostic , digit al, unila teral No observ ation record ed. [email or web address], [place], [address], 10/25/2024 16:31:00 Result Notes None recorded. Problems Name Problem SNOMED Code Status Onset Date Resolution Date Notes Provider Name and Address Organization Details Recorded Time SNOMED CT Concept Completed 201809/03/2021 Encntr for general adult medical exam w/o abnormal findings; Recorded Elsewhere : No Locati on: [facility] So urce: EHR Chron ic: N Practic e ID: [id number] Bill able Time: 10:00:00 AM Lashell Martinez [facility] [place] - [facility] 2 11:32:[address] Concept Completed 201809/03/2021 Encntr for ammonium nitrate crystallizer exam (general) (routine) w/o abn findings; Practice ID: 0001 [facility] 11:32:17 Screenin g for malignan t neoplasm of rectum Completed 201809/03/2021 Encounter for screening for malignant neoplasm of rectum;Pr actice ID: [id number] [facility] 2 11:32:17 Reduced libido 9716395 Completed 201909/03/2021 Decreased libido;Re corded Elsewhere : No Locati on: [facility] So urce: EHR Chron ic: N Practic e ID: [id number] Bill able Time: 09:45:00 AM Lashell Martinez [facility] 2 11:32:17 Blood leukocyt e number above referenc e range [id number] Completed 201909/03/2021 Elevated white blood cell count, unspecifi ed;Practi ce ID: 0001 Lashell Martinez [facility] 2 11:32:17 Superfic ial pain on intercou rse 372957113 Completed 201909/03/2021 Superfici al (introita l) dyspareun ia;Practi ce ID: 0001 Lashell Martinez [facility] 2 11:32:17 Problem Notes None recorded. Procedures Surgical History Date Name Laterality Status Provider Name and Address Organization Details Recorded Time 08/29/[address] [facility] 10/03/2024 12:06:28 02/27/20 24 Date of Last Mammogram completed [facility] 10/03/2024 12:24:44 09/19/19 24 Date of Last Pap Smear completed [facility] 10/03/2024 12:06:39 08/05/19 24 Most Recent Bone Density completed [facility] 10/03/2024 12:06:27 05/02/20 23 Orthopedic Surgery completed [facility] 09/17/2023 12:34:52 05/02/20 23 Orthopedic Surgery completed [facility] 09/17/2023 12:42:12 06/20/19 23 completed [facility] 09/17/2023 12:34:15 06/06/19 16 Colonoscopy completed [facility] 09/03/2021 11:44:47 08/05/19 15 completed [facility] 09/03/2021 11:55:00 08/05/19 15 Date of Last Colonoscopy completed [facility] 09/03/2021 11:55:00 08/18/18 87 Caesarean Section completed Danuta Clark [facility] 10/03/2024 12:06:28 08/04/18 87 section completed [facility] 09/03/2021 11:44:12 06/06/18 77 Hernia repair w/mesh completed [facility] 09/03/2021 11:44:35 Tubal Ligation completed [facility] 09/03/2021 11:44:23 Colonoscopy completed Cami Nguyen LEANN- [address], [place], [address], [facility] 09/14/2022 12:34:30 Caesarean Section completed Lashell [facility] 09/03/2021 11:55:11 Dilation and Curettage completed [facility] 09/03/2021 11:55:11 Tonsillectomy completed Lashell [facility] 09/03/2021 11:55:12 Imaging Results None recorded. Procedure Notes None recorded. Medical Equipment None [...] Prescrib ed Elsewher e: Yes Loca tion: [facility] M odify By: allyssa ruff DateTime : 06/12/19 [...] FOR 5 DAYS WITH FLARE UP NEEDED 2024 active Not Available Not Available Not Avai [...] to inner arm 08/07 completed Prescrib ed Hiral e: No Locat ion: [facility] odify By: [email or web address] l Quincy avitia DateTime : 07/26/19 09:45:00 AM Not Available Not Available Not Available Amrix 15 mg capsule,e xtended release take 1 capsule by oral route every day 08/07 completed Prescrib ed Elsewher e: Yes Loca tion: Charanjit acosta [facility] odify By: allyssa tenaunter DateTime : 06/12/19 10:00:00 AM Not Available Not Available Not Available Botox 200 unit injection 09/16 completed Not Available Not Available Not Available Tirosint 13 mcg capsule take 1 capsule by oral route every day 08/07 completed Prescrib ed Elsewher e: Yes Loca tion: Charanjit acosta [facility] odify By: allyssa tenaunter DateTime : 06/12/19 10:00:00 AM Not Available [...] Not Available Not Available Not Available Acid Shell Core And Molding Supervisor (omeprazo le) 09/03 completed Not Available Not Available Not Available Lyrica CR 82.5 mg tablet,ex tended release take 1 tablet by oral route every day at the same time each day 08/07 completed Prescrib ed Elsewher e: Yes Loca tion: Charanjit acosta [facility] odify By: allyssa ruff DateTime : 06/12/19 [...] Body mass index (BMI) Body weight Systolic And Diastolic Provider Name and Address Organization Details Last Updated DateTime 09/03/2021 162.56 cm 23.7 kg/m2 52049.75 g 122/76 mm[Hg] Lashell Martinez [facility] 09/03/2021 11:54:37 Date Recorded Body weight Systolic And Diastolic Provider Name and Address Organization Details Last Updated DateTime 09/14/2022 90241.88 g 118/79 mm[Hg] Lashell Sanders [facility] 09/14/2022 12:25:15 Date Recorded Body height Body mass index (BMI) Body weight Systolic And Diastolic Provider Name and Address Organization Details Last Updated DateTime 09/17/2023 162.56 cm 22 kg/m2 89472.82 g 135/87 mm[Hg] Mayra Reza [facility] 09/17/2023 12:33:57 Date Recorded Body height Body mass index (BMI) Body weight Systolic And Diastolic Provider Name and Address Organization Details Last Updated DateTime 10/03/2024 162.56 cm 20.9 kg/m2 01230.55 g 142/88 mm[Hg] Danuta Amber [facility] 10/03/2024 12:23:27 Social History Question Answer Notes LastModified by Organizat ion Details LastModified Time Tobacco Smoking Status Never Smoker Lashell Sanders [facility] 09/14/2022 12:25:41 Do You Have An [...] Or The Highest Degree You Have Received? [id number] Information not available 09/03/2021 Are There Any Guns Present In Your Home? Yes Information not available 09/03/2021 Do You Use Protection During Sex? No Information not available 09/03/2021 Do You Use Your Seat Belt Or Car Seat Routinely? Yes Information not available 09/03/2021 Do You Have Smoke And Carbon Monoxide Detectors In Your Home? Yes Information not available 09/03/2021 How Much Tobacco Do You Smoke? No Information not available 09/03/2021 Do You Use Sunscreen Routinely? Yes Information not available 09/03/2021 How Many Years Have You Smoked Tobacco? 0 Information not available 09/03/2021 Have You Used IV Drugs? No Information not available 09/03/2021 Do You Have Difficulty Walking Or Climbing Stairs? No Information not available 09/14/2022 Sex: Unknown Functional Status Question Answer Note LastModified by Organizat ion Details LastModified Time Do you use any illicit or recreational drugs? No Information not available 09/03/2021 What is your level of alcohol consumption? Occasional Information not available 09/03/2021 Are you able to walk independently without assistance or assistive devices? YESWOREST Information not available 09/03/2021 Are you able to care for yourself independently? Yes Information not available 09/14/2022 What is your occupation? Retired Information not available 09/03/2021 Do you have difficulty dressing, bathing, grooming, or toileting? No Information not available 09/14/2022 What is your exercise level? Occasional Information not available 09/03/2021 Mental Status Question Answer Note LastModified by Organization D etails LastModified Time Do you feel stressed (tense, restless, nervous, or anxious, or unable to sleep at night)? [id number] [email or web address] Information not available 10/03/2024 Family History Relationship Description Onset Age of this Age Resolved Age Notes LastModified by Organization Details LastModified Time Mother Hyperlipidem ia Not available 2024 12:06:26 Mother Multiple sclerosis [email or web address] Not available 10/08 16:07:25 Mother Osteoporosis Not availa ble 09/14/2022 12:25:23 Father Hyperlipidem ia [email or web address] Not available 2024 12:06:26 Father Malignant neoplasm of lung [email or web address] Not available 2024 12:06:26 Father Congenital disease HEART Not available 2024 12:06:26 Father Heart disease Not available 2021 11:54:41 Father Disorder of lung 64 64 [email or web address] Not available 2024 12:06:26 Maternal Grandmother Lupus erythematosu s [email or web address] Not available 2024 12:06:26 Maternal Aunt Rheumatoid arthritis [email or web address] Not available 2024 12:06:26 Brother Substance abuse Not available 2021 11:54:41 Daughter Pre-eclampsi a [email or web address] Not available 2024 12:06:26 Daughter Pre-eclampsi a 21 21 [email or web address] Not available 2024 12:06:26 Medical History Condition Response Other Arthritis Y Acid Reflux (GERD) Y Thyroid Problems Y GI Problems Y Anemia Y High Cholesterol Y Depression/ depression Y History of STI Y Headaches Y Fibromyalgia Y Osteoporosis Y Gynecological History Statement/Question Response Date of Last Mammogram 02/27/2024 Date of LMP 12/04/2009 Y Was last menstrual period normal Y STIs/STDs Yes 06/20/2022 If Post Menopausal, Age at Menopause 44 Date of Last Colonoscopy 08/04/2014 Desired Control Method None On BCP's at Conception? Y HPV Vaccine N Duration of Flow (days) 5 Current Control Method None Age at First Child 19 Frequency of Cycle (Q days) 30 Most Recent Bone Density 08/05/2023 Sexually Active? Y Menses Monthly N Date of DEXA bone scan 06/06/2023 Age of first menstrual cycle 12 Date of Last Pap Smear 09/19/2023 Sexual Problems? Y LMP Approximate 08/04/2014 N 09/04/1992 Obstetrics History GPAL:G 3 P 0 0 0 3 Type Value Living 3 Total 3 Past Encounters Encounter ID Performer Location Encounter Start Date Encounter Closed Date Diagnosis/Indication Diagnosis SNOMED-CT Code Diagnosis ICD10 Code Diagnosis IMO Codes Diagnosis Note [id number] Luz Marley MD [place] [address] [address] 10/11/2019 14:19:33 10/11/2019 16:38:03 Superficial pain on intercourse 389904098 N94.11 Continue Osphena. Return 07/2020 for annual or as needed Reduced libido 7647958 R 68.82 [place] [id number] Cami Nguyen [facility] [address] [address] 08/07/2020 11:16:37 08/07/2020 12:13:48 Gynecologic examination 66998025 Z01.419 Take Calcium with Vitamin D 12-1500mg daily. Do monthly self breast exams. It is advised to get annual flu shot in the fall and she could obtain at [facility] or [facility] care clinic. If you haven't received the Tdap vaccine in the last 10 years you should obtain one as well. Have mammogram yearly, bone density every 2-3 years and colonoscop y every 5-10 years depending on findings and history. Engage in daily exercise of low impact aerobic exercise 45-60 minutes 4-5 times weekly. Avoid tobacco and illicit drugs as well as using moderation with alcohol intake less than 1-2 8 oz beverages daily. This lifestyle behavior pattern will lead to less health conditions and longer life span. If BMI greater than 25 weight watchers or dietary consult advised. Questions have been answered. Patient appears to understand instructio ns, but if you have any further questions call or respond to this email Prefers pap/hpv be compleed this year Papphv wnl with last abn 15yrs but does not recall results. No further testing was completed other than yearly pap she states. Hx of HSV Menopause since 2009. Postmenopa usal osteopenia 240673229 M85.80 Hx of hypothyroi dism, Fibromyalg ia, back issues that uses steroids for and has been in menopause since 2009. External hemorrhoids 239 53030 K64.4 Likes to have cream on hand in case [place]. [id number] Cami Nguyen , [facility] [address] [address] 09/03/2021 11:39:05 09/03/2021 12:16:22 Gynecologic examination 68440320 Z01.419 Take Calcium with Vitamin D 12-1500mg daily. Do monthly self breast exams. It is advised to get annual flu shot in the fall and she could obtain at [facility] or [facility] clinic. If you haven't received the Tdap vaccine in the last 10 years you should obtain one as well. Have mammogram yearly, bone density every 2-3 years and colonoscop y every 5-10 years depending on findings and history. Engage in daily exercise of low impact aerobic exercise 45-60 minutes 4-5 times weekly. Avoid tobacco and illicit drugs as well as using moderation with alcohol intake less than 1-2 8 oz beverages daily. This lifestyle behavior pattern will lead to less health conditions and longer life span. If BMI greater than 25 weight watchers or dietary consult advised. Questions have been answered. Patient appears to understand instructio ns, but if you have any further questions call or respond to this email Pap/hpv sent STD Screen declined Genetic Screen discussed Colon Screen UTD PCP Dexa Screen UTD Going to see [facility] Specialist for bone health care Routine Labs UTD PCPMammo ordered Herpes simplex 00746168 B00.9 RF's x prn use [id number] Cami Nguyen , [facility] [address] [address] 09/14/2022 12:17:07 09/14/2022 12:55:30 Gynecologic examination 72908212 Z01.419 Z11.51 Take Calcium with Vitamin D 12-1500mg daily. Do monthly self breast exams. It is advised to get annual flu shot in the fall and she could obtain at [facility] or [facility] care clinic. If you haven't received the Tdap vaccine in the last 10 years you should obtain one as well. Have mammogram yearly, bone density every 2-3 years and colonoscop y every 5-10 years depending on findings and history. Engage in daily exercise of low impact aerobic exercise 45-60 minutes 4-5 times weekly. Avoid tobacco and illicit drugs as well as using moderation with alcohol intake less than 1-2 8 oz beverages daily. This lifestyle behavior pattern will lead to less health conditions and longer life span. If BMI greater than 25 weight watchers or dietary consult advised. Questions have been answered. Patient appears to understand instructio ns, but if you have any further questions call or respond to this email Pap/hpv opts to complete-s entSTD Screen declinedGe netic Screen discussedC olon Screen UTD PCPDexa Screen UTD [facility] PCPMammo ordered Screening mammography 24 877141 Z12.31 Herpes simplex 36775661 B00.9 RF's x prn use [id number] Cami Nguyen [facility] [address] [address] 09/17/2023 12:27:22 09/27/2023 12:59:06 Gynecologic examination 41325160 Z01.419 Z11.51 Take Calcium with Vitamin D 12-1500mg daily. Do monthly self breast exams. It is advised to get annual flu shot in the fall and she could obtain at [facility] or [facility] care clinic. If you haven't received the Tdap vaccine in the last 10 years you should obtain one as well. Have mammogram yearly, bone density every 2-3 years and colonoscop y every 5-10 years depending on findings and history. Engage in daily exercise of low impact aerobic exercise 45-60 minutes 4-5 times weekly. Avoid tobacco and illicit drugs as well as using moderation with alcohol intake less than 1-2 8 oz beverages daily. This lifestyle behavior pattern will lead to less health conditions and longer life span. If BMI greater than 25 weight watchers or dietary consult advised. Questions have been answered. Patient appears to understand instructio ns, but if you have any further questions call or respond to this email Pap/hpv sentSTD Screen declinedGe netic Screen discussedC olon Screen UTD PCPDexa Screen UTD Going to see [facility] Specialist for bone health careRoutin e Labs UTD PCPMammo ordered Screening mammography 24 190677 Z12.31 Hyperpigme ntation of skin 22603925 L81.9 We discussed a short course of topical treatment for hyperpigme ntation.Us e of sunclock with zinc.Ref to Derm if any further issues or treatment not successful . Counseled on medication R/B's, Most common side effects, & use. All questions were answered to patient satisfacti on. [id number] Elgin Mendoza MD [place] [address] [address] 10/03/2024 11:54:42 10/03/2024 14:56:56 Pain in pelvis 03885302 R10.2 63429 Discussed that tenderness is located at the site that interventi onal radiology accessed the femoral artery for the right kidney mass embolizati on, and that is likely the cause of patient's reported symptoms of pelvic pain.Pelvi c u/s ordered to r/o uterine or ovarian abnormalit ies. Will call patient with results and follow-up as indicated. Patient has f/u appt scheduled with [facility] in October.Patien t is to contact office or go to nearest ED/Urgent care if fever >/= 100.1, pain, excessive bleeding, unusual drainage or swelling in area of concern; or experienci ng worsening sx's or new onset of concerning sx's. Understand ing verbalized . All questions answered to patient satisfacti on. Pain of left breast 1010 926060 N64.4 [id number] We discussed her breast exam findings and pt is counseled and reassured. Questions answered. Imaging: left diagnostic unilateral mammogram ordered to evaluate persistent left breast tenderness .Recommend ed well-fitti ng sports bra. Recommende d vitamin E supplement 400-600 IU once or twice daily to help with breast tenderness .Patient advised to perform self-breas t exams and report any changes.FU for WWE. [id number] Elgin Mendoza MD [place] [address] [address] 10/04/2024 11:46:37 10/04/2024 12:29:04 Pain in pelvis 69743553 R10.2 663062 Health Concerns Section Related Observation LastModified by Organization Detai ls LastModified Time None Recorded Concern Status LastModified by Organization Details LastModified Time None Recorded Advance Directives Directive N: Payers Insurance Date Sequence Insurance Name Policy Number Policy Pascal Covered Member ID Pascal Member ID Guarantor Name 10/06/2024 2 [facility] Aniya Root [id number] Aniya Ann 10/09/2024 1 [facility] ([facility] [id number] Romie Acosta Root [id number] Aniya Root 10/09/2024 1 [facility] [id number] Romie E Root [id number] Aniya Ann 10/04/2024 2 [place] Aniya Ann [id number] Aniya Ann Notes Date Note Type Note Provider Name and Address Organization Details Recorded Time 2 text/html Annual Psychologist Developmental Post-MenopausalReported by PatientGenitourinary symptomsFor menopausal symptoms, patient reportsno menopausal symptomsandnormal vaginal lubrication. For vaginal bleeding, patient reportshistory of menopause having occurredandno history of post menopausal bleeding. For urinary symptoms, patient reportsno hematuria,no incontinence,no nocturia, andno urinary frequency. For vulva, patient reportsno genital lesionandno vulvar atrophy. For vagina, patient reportsnormal vaginal dischargeandno vaginal atrophy.Breast symptomsFor breast, patient reportsno breast lump,no nipple discharge, andno breast pain.Psychological symptomsFor sexual complaints, patient reportsno sexual complaints. For psychological symptoms, patient reportsno depressionandno anxiety.Preventative measuresFor preventive measures, patient reportsencourage regular mammograms starting age 40,encourage self breast examination,encourage regular exercise,encourage no tobacco use,needs to schedule mammogram, andhistory of recent colonoscopy(going to bone specialist 09/21/2021 wash-u). Cami Nguyen, WHLEANN-BC [address], [place], [address], [facility] 09/03/2021 12:13:41 3 text/html Annual Psychologist Developmental Post-MenopausalReported by PatientGenitourinary symptomsFor menopausal symptoms, patient reportsno menopausal symptomsandnormal vaginal lubrication. For vaginal bleeding, patient reportshistory of menopause having occurredandno history of post menopausal bleeding. For urinary symptoms, patient reportsno hematuria,no incontinence,no nocturia, andno urinary frequency. For vulva, patient reportsno genital lesionandno vulvar atrophy. For vagina, patient reportsnormal vaginal dischargeandno vaginal atrophy.Breast symptomsFor breast, patient reportsno breast lump,no nipple discharge, andno breast pain.Psychological symptomsFor sexual complaints, patient reportsno sexual complaints. For psychological symptoms, patient reportsno depressionandno anxiety.Preventative measuresFor preventive measures, patient reportsencourage regular mammograms starting age 40,encourage self breast examination,encourage regular exercise,encourage no tobacco use,needs to schedule mammogram, andhistory of recent colonoscopy. CHRISTINE Shrestha- [address], [place], [address], [facility] 09/14/2022 12:51:30 4 text/html Annual Psychologist Developmental Post-MenopausalReported by PatientGenitourinary symptomsFor menopausal symptoms, patient reportsno menopausal symptomsandnormal vaginal lubrication. For vaginal bleeding, patient reportshistory of menopause having occurredandno history of post menopausal bleeding. For urinary symptoms, patient reportsno hematuria,no incontinence,no nocturia, andno urinary frequency. For vulva, patient reportsno genital lesionandno vulvar atrophy. For vagina, patient reportsnormal vaginal dischargeandno vaginal atrophy.Breast symptomsFor breast, patient reportsno breast lump,no nipple discharge, andno breast pain.Psychological symptomsFor sexual complaints, patient reportsno sexual complaints. For psychological symptoms, patient reportsno depressionandno anxiety.Preventative measuresFor preventive measures, patient reportsencourage regular mammograms starting age 40,encourage self breast examination,encourage regular exercise,encourage no tobacco use,needs to schedule mammogram, andhistory of recent colonoscopy. CHRISTINE Shrestha- [address], [place], [address], [facility] 09/27/2023 07:23:50 5 text/html Annual Psychologist Developmental Post-MenopausalReported by PatientGenitourinary symptomsFor menopausal symptoms, patient reportsno menopausal symptomsandnormal vaginal lubrication. For vaginal bleeding, patient reportshistory of menopause having occurredandno history of post menopausal bleeding. For urinary symptoms, patient reportsno hematuria,no incontinence,no nocturia, andno urinary frequency. For vulva, patient reportsno genital lesionandno vulvar atrophy. For vagina, patient reportsnormal vaginal dischargeandno vaginal atrophy.Breast symptomsFor breast, patient reportsno breast lump,no nipple discharge, andno breast pain.Psychological symptomsFor sexual complaints, patient reportsno sexual complaints. For psychological symptoms, patient reportsno depressionandno anxiety.Preventative measuresFor preventive measures, patient reportsencourage regular mammograms starting age 40,encourage self breast examination,encourage regular exercise, andencourage no tobacco use. 58 y/o female presents with c/o right-sided pelvic pain and tenderness.Patient states that she had a benign 5.5 cm mass on right kidney found incidentally on MRI and she had right kidney embolization 08/28/24 at [facility] Interventional radiology. Patient reports being tender on that side since then. Patient concerned about ongoing pain and tenderness. Patient also reports left lateral breast tenderness x 3 weeks.Patient reports history of fibrocystic breast tissue and biopsy taken of this breast.Patient states that last mammogram was WNL 02/2024.Patient denies known lumps, skin changes, or nipple discharge. Neg urinary sx'sNeg GI sx'sNeg N/V/F/C/DNeg Vag d/c, odor, irritation, itching JESSI MANZANARES NP [address], [place], [address], [place] [facility] 10/03/2024 14:38:59 OBGyn Episode Ob Episode Information Episode Created Date Number of Fetuses Patient Bloodtype Patient rh Status Prepregnancy Weight lbs Domestic Partner Domestic Partner Phone Father Name Crm Business Analyst Status 10/11/19 20 1 CLOSED Fetus Data First Name Last Name Admitted to NICU Weight (g) Sex Living Outcome Pediatric Complications Fetus ID Race Codes Race Delivery Type 1237 Vaginal Delivery Feroz Calculation Initial Feroz Date Initial Exam Date Initial Exam Provider Initial Ultrasound Date Last Menstrual Period Date Ultra Sound Weeks Gestation 0 Eighteen To Twenty Week Feroz Update Ultra Sound Date Fundal Height At Umbil Quickening Date Ultra Sound Latest Weeks Gestation Final Feroz Confirmed By Final Feroz Confirmed Date Final Feroz Date Ultra Sound Latest Days Gestation 0 0 Menstrual History Last Menstrual Date Menses Monthly On Bcp Conception Prior Menses Frequency Hcg Plus Date Menarche Onset Age Delivery Information Delivery Date Delivery Type Labor Anesthesia Weeks Gestation Incision Type Labor Labor Length Hrs Delivered By Post Complications Tubal Sterilization Discharge Date Comments 3 Discharge Information Feeding Method Contraceptive Method Maternal HG B and HCT Levels Ob Episode Information Episode Created Date Number of Fetuses Patient Bloodtype Patient rh Status Prepregnancy Weight lbs Domestic Partner Domestic Partner Phone Father Name Crm Business Analyst Status 10/11/19 20 1 CLOSED Fetus Data First Name Last Name Admitted to NICU Weight (g) Sex Living Outcome Pediatric Complications Fetus ID Race Codes Race Delivery Type 1238 Vaginal Delivery Feroz Calculation Initial Feroz Date Initial Exam Date Initial Exam Provider Initial Ultrasound Date Last Menstrual Period Date Ultra Sound Weeks Gestation 0 Eighteen To Twenty Week Feroz Update Ultra Sound Date Fundal Height At Umbil Quickening Date Ultra Sound Latest Weeks Gestation Final Feroz Confirmed By Final Feroz Confirmed Date Final Feroz Date Ultra Sound Latest Days Gestation 0 0 Menstrual History Last Menstrual Date Menses Monthly On Bcp Conception Prior Menses Frequency Hcg Plus Date Menarche Onset Age Delivery Information Delivery Date Delivery Type Labor Anesthesia Weeks Gestation Incision Type Labor Labor Length Hrs Delivered By Post Complications Tubal Sterilization Discharge Date Comments 5 Discharge Information Feeding Method Contraceptive Method Maternal HG B and HCT Levels Ob Episode Information Episode Created Date Number of Fetuses Patient Bloodtype Patient rh Status Prepregnancy Weight lbs Domestic Partner Domestic Partner Phone Father Name Crm Business Analyst Status 10/11/19 20 1 CLOSED Fetus Data First Name Last Name Admitted to NICU Weight (g) Sex Living Outcome Pediatric Complications Fetus ID Race Codes Race Delivery Type 1239 Primary Feroz Calculation Initial Feroz Date Initial Exam Date Initial Exam Provider Initial Ultrasound Date Last Menstrual Period Date Ultra Sound Weeks Gestation 0 Eighteen To Twenty Week Feroz Update Ultra Sound Date Fundal Height At Umbil Quickening Date Ultra Sound Latest Weeks Gestation Final Feroz Confirmed By Final Feroz Confirmed Date Final Feroz Date Ultra Sound Latest Days Gestation 0 0 Menstrual History Last Menstrual Date Menses Monthly On Bcp Conception Prior Menses Frequency Hcg Plus Date Menarche Onset Age Delivery Information Delivery Date Delivery Type Labor Anesthesia Weeks Gestation Incision Type Labor Labor Length Hrs Delivered By Post Complications Tubal Sterilization Discharge Date Comments 7 Discharge Information Feeding Method Contraceptive Method Maternal HG B and HCT Levels
== END 2025-04-25 10:46 | disposition home or self-care (01) ==
PROVIDERS: PCP Nurse Practitioner; Visit Provider Student in an Organized Health Care Education/Training Program
DX: R92.8 Other abnormal and inconclusive findings on diagnostic imaging of breast (principal)
CPT/HCPCS: 76642; 77062; 77066; G0279